=== PATIENT | female | born 1975 | race American Indian/Alaskan Native ===

== ENCOUNTER 2017-05-27 07:50 | Emergency (ER) | payer MEDICAID, MEDICARE ==
[2017-05-27 07:50] VITALS: BMI 30.9
[2017-05-27 07:55] VITALS: TEMP 98.6
--- NOTE | 2017-05-27 08:27 | C.PDOC ---
History Of Present Illness 42 yr old female presents to the ER requesting heroin detox. Patient reports last use was in last 24hrs. Otherwise patient denies SI, HI, or any other physical complaints. REQUESTING HEROIN DETOX. LAST USE 24 HRS. CO [place], [place]. NO OTHER ASSOC SX EXAM PSYCH CALM COOPERATIVE MILD WITHDRAWAL WARM DRY REMAINDER NEG Time Seen by Provider: 05/27/17 08:18 Chief Complaint (Nursing): Substance Abuse History Per: Patient History/Exam Limitations: no limitations Onset/Duration Of Symptoms: Persistent Current Symptoms Are (Timing): Still Present Suicide/Self Injury Attempted (Context): None Involuntary Hold By: None Recent travel outside of the [place]: No Past Medical History Reviewed: Historical Data, Nursing Documentation, Vital Signs Vital Signs: Last Vital Signs Temp 98.6 F 05/27/17 07:54 Pulse 105 H 05/27/17 07:54 Resp 22 05/27/17 07:54 BP 155/108 H 05/27/17 07:54 Pulse Ox 99 05/27/17 08:27 - Medical History PMH: Anemia, Anxiety, Asthma, Back Problems (SPINAL SURGERY IN 2005), Bipolar Disorder, Bronchitis, COPD, Depression, GERD, HTN, Hypercholesterolemia, Post Traumatic Stress Disorder, Seizures, TIA (impaired speech resolved 2015) Surgical History: Back Surgery - [facility] Procedures ALCOHOL DETOXIFICATION (12/13/14) BILAT ENDOS OCC TUBE NEC (12/20/97) C.A.T. SCAN OF HEAD (03/31/07) CLOSED ENDOSCOPIC BIOPSY OF LARGE INTESTINE (05/10/14) DETOXIFICATION SERVICES FOR SUBSTANCE ABUSE TREATMENT (10/19/16) DPT ADMINISTRATION (07/06/14) DRAINAGE OF RIGHT KNEE JOINT, PERCUTANEOUS APPROACH, DIAGN (12/08/15) DX ULTRASOUND-DIGESTIVE (04/10/15) ESOPHAGOGASTRODUODENOSCOPY [EGD] W/CLOSED BIOPSY (04/10/15) GROUP SPLINE ROLLING MACHINE JOB SETTER FOR SUBSTANCE ABUSE TREATMENT, PSYCHOEDUCATION (10/19/16) GROUP PSYCHOTHERAPY (10/19/16) IMMOBILIZ/WOUND ATTN NEC (04/28/14) INCIS VULVA/PERINEUM NEC (04/28/14) INDIV SPLINE ROLLING MACHINE JOB SETTER FOR SUBSTANCE ABUSE TREATMENT, PSYCHOEDUCATION (10/19/16) INDIV PSYCHOTHERAPY FOR SUBSTANCE ABUSE TREATMENT, SUPPORT (10/19/16) INDIV PSYCHOTHERAPY FOR SUBSTANCE ABUSE, PSYCHOEDUCATION (07/07/16) INDIVID PSYCHOTHERAP NEC (08/07/14) INDIVIDUAL PSYCHOTHERAPY, COGNITIVE-BEHAVIORAL (10/19/16) INDIVIDUAL PSYCHOTHERAPY, SUPPORTIVE (11/25/15) INJECT/INFUSE ELECTROLYT (06/11/14) INJECT/INFUSE NEC (11/14/14) INSERT INDWELLING CATH (05/07/14) INTRODUCE OF OTH THERAP SUBST INTO RESP TRACT, VIA OPENING (03/19/17) MEDICATION MANAGEMENT (05/03/17) NEBULIZER THERAPY (12/13/14) OTHER GROUP THERAPY (08/07/14) PSYCHIA INTERV/EVAL NEC (11/14/14) PSYCHIAT DRUG THERAP NEC (05/22/14) VENOUS PUNCTURE NEC (08/02/14) Family History: States: No Known Family Hx - Social History Hx Tobacco Use: Yes Hx Alcohol Use: Yes Hx Substance Use: Yes - Immunization History Hx Tetanus Toxoid Vaccination: No Hx Influenza Vaccination: No Hx Pneumococcal Vaccination: No Review Of Systems Except As Marked, All Systems Reviewed And Found Negative. Constitutional: Negative for: Fever Cardiovascular: Negative for: Chest Pain Respiratory: Negative for: Shortness of Breath Neurological: Negative for: Headache Psych: Negative for: Suicidal ideation Physical Exam - Physical Exam Appears: Non-toxic, No Acute Distress, Other ((+) Mild withdrawal.) Skin: Warm, Dry, No Rash Head: Atraumatic, Normacephalic Oral Mucosa: Moist Chest: Symmetrical, No Tenderness Cardiovascular: Rhythm Regular, No Murmur Respiratory: Normal Breath Sounds, No Rales, No Rhonchi, No Stridor, No Wheezing Extremity: Normal ROM, No Swelling Neurological/Psych: Oriented x3, Normal Speech, Normal Motor, Normal Sensation ED Course And Treatment O2 Sat by Pulse Oximetry: 99 (RA) Pulse Ox Interpretation: Normal - Physician Consult Information Time Consulting Physician Contacted: 08:26 Outcome Of Conversation: D/W CRISIS NO DETOX BED AVAIL Medical Decision Making Medical Decision Making: PLAN: * Clonidine PO * Promethazine PO * Toradol IM Disposition Counseled Patient/Family Regarding: Diagnosis, Need For Followup, Rx Given - Disposition Referrals: [facility] [Outside] [facility] [Outside] [facility] [Provider Group] [facility] [Other] Disposition: HOME/ ROUTINE Disposition Time: 08:26 Condition: IMPROVED Prescriptions: Ondansetron [Zofran Odt] 4 mg PO TID PRN #9 odt PRN Reason: Nausea/Vomiting Instructions: Opioid Withdrawal (ED) Forms: [facility] (Portuguese) - Clinical Impression Clinical Impression: Opiate withdrawal - Scribe Statement The provider has reviewed the documentation as recorded by the Scribe Norma Pruitt Provider Attestation: All medical record entries made by the Scribe were at my direction and personally dictated by me. I have reviewed the chart and agree that the record accurately reflects my personal performance of the history, physical exam, medical decision making, and the department course for this patient. I have also personally directed, reviewed, and agree with the discharge instructions and disposition.
[2017-05-27 08:54] VITALS: BP 148/92; PULSE 90; RESP 20; O2SAT 98
== END 2017-05-27 09:19 | disposition home or self-care (01) ==
LOC: C.ER 07:50
DX: F11.23 Opioid dependence with withdrawal (principal)
CPT/HCPCS: 96372; 99285; J1885; J2550

== ENCOUNTER 2017-06-11 21:50 | Emergency (ER) | payer MEDICAID, OTHER ==
[2017-06-11 21:50] VITALS: BMI 30.9
[2017-06-11 22:34] LABS: BASO # 0.1 K/uL (0.0-0.2); BASO % 1.3 % (0.0-2.0); EOS # 0.1 K/uL (0.0-0.7); EOS % 1.7 % (0.0-4.0); HEMATOCRIT 36.7 % (34.0-47.0); LYMPH % 41.7 % (20.0-40.0); MEAN CELL VOLUME 93.3 fL (81.0-99.0); MEAN CORPUSCULAR HEMOGLOBIN 31.3 pg (27.0-31.0); MEAN CORPUSCULAR HGB CONC 33.6 g/dL (33.0-37.0); MEAN PLATELET VOLUME 9.1 fL (7.2-11.7); MONO # 0.7 K/uL (0.0-0.8); MONO % 9.2 % (0.0-10.0); RED CELL DISTRIBUTION WIDTH 15.2 % (11.5-14.5); WHITE BLOOD COUNT 7.2 K/uL (4.8-10.8)
--- NOTE | 2017-06-11 22:36 | C.PDOC ---
History Of Present Illness Patient is a 42 y/o female who presents to the ED by EMS s/p being [place] in [place] intoxicated and unable to answer questions. Patient has a PMHx of asthma, bronchitis, COPD, seizure disorder, PTSD, bipolar disorder as well as a Hx of heroin and cocaine abuse. No other physical complaints at this time. Time Seen by Provider: 06/11/17 22:07 Chief Complaint (Nursing): Substance Abuse History Per: Patient History/Exam Limitations: intoxication, other (unable to answer questions) Current Symptoms Are (Timing): Still Present Recent travel outside of the [place]: No Additional History Per: EMS Past Medical History Reviewed: Historical Data, Nursing Documentation, Vital Signs Vital Signs: Last Vital Signs Temp Pulse 94 H 06/11/17 21:58 Resp 16 06/11/17 21:58 BP 113/87 06/11/17 21:58 Pulse Ox 98 06/12/17 00:10 - Medical History PMH: Anemia, Anxiety, Asthma, Back Problems (SPINAL SURGERY IN 2005), Bipolar Disorder, Bronchitis, COPD, Depression, GERD, HTN, Hypercholesterolemia, Post Traumatic Stress Disorder, Seizures, TIA Denies: Alzheimer's Disease, Arthritis, Cardia Arrhythmia, CHF, Crohn's Disease, Dementia, Diabetes, Diverticulitis, Emphysema, Fibromyalgia, Fractures , Gastrointestinal Ulcer, Gall Bladder Disease, Hepatitis, HIV, Hyperthyroidism , Hypothyroidism, Kidney Stones, Migraine, Mitral Valve Prolapse, Osteoporosis, Pancreatitis, Paranoia, Parkinson's Disease, Peripheral Edema, Personality Disorder, Pneumonia, Pulmonary Embolism, Chronic Kidney Disease, Schizophrenia, Sickle Cell Disease, Sexually Transmitted Disease, Sleep Apnea Surgical History: Back Surgery Denies: Appendectomy, Cholecystectomy, Coronary Stent, [facility] ALCOHOL DETOXIFICATION (12/13/14) BILAT ENDOS OCC TUBE NEC (12/20/97) C.A.T. SCAN OF HEAD (03/31/07) CLOSED ENDOSCOPIC BIOPSY OF LARGE INTESTINE (05/10/14) DETOXIFICATION SERVICES FOR SUBSTANCE ABUSE TREATMENT (10/19/16) DPT ADMINISTRATION (07/06/14) DRAINAGE OF RIGHT KNEE JOINT, PERCUTANEOUS APPROACH, DIAGN (12/08/15) DX ULTRASOUND-DIGESTIVE (04/10/15) ESOPHAGOGASTRODUODENOSCOPY [EGD] W/CLOSED BIOPSY (04/10/15) GROUP PRINT LINE SUPERVISOR FOR SUBSTANCE ABUSE TREATMENT, PSYCHOEDUCATION (10/19/16) GROUP PSYCHOTHERAPY (10/19/16) IMMOBILIZ/WOUND ATTN NEC (04/28/14) INCIS VULVA/PERINEUM NEC (04/28/14) INDIV PRINT LINE SUPERVISOR FOR SUBSTANCE ABUSE TREATMENT, PSYCHOEDUCATION (10/19/16) INDIV PSYCHOTHERAPY FOR SUBSTANCE ABUSE TREATMENT, SUPPORT (10/19/16) INDIV PSYCHOTHERAPY FOR SUBSTANCE ABUSE, PSYCHOEDUCATION (07/07/16) INDIVID PSYCHOTHERAP NEC (08/07/14) INDIVIDUAL PSYCHOTHERAPY, COGNITIVE-BEHAVIORAL (10/19/16) INDIVIDUAL PSYCHOTHERAPY, SUPPORTIVE (11/25/15) INJECT/INFUSE ELECTROLYT (06/11/14) INJECT/INFUSE NEC (11/14/14) INSERT INDWELLING CATH (05/07/14) INTRODUCE OF OTH THERAP SUBST INTO RESP TRACT, VIA OPENING (03/19/17) MEDICATION MANAGEMENT (05/03/17) NEBULIZER THERAPY (12/13/14) OTHER GROUP THERAPY (08/07/14) PSYCHIA INTERV/EVAL NEC (11/14/14) PSYCHIAT DRUG THERAP NEC (05/22/14) VENOUS PUNCTURE NEC (08/02/14) Family History: States: Unknown Family Hx - Social History Hx Tobacco Use: Yes Hx Alcohol Use: Yes Hx Substance Use: Yes (H/O HEROINE,COCAINE ABUSE.DENIES USE RECENTLY) - Immunization History Hx Tetanus Toxoid Vaccination: No Hx Influenza Vaccination: No Hx Pneumococcal Vaccination: No Review Of Systems Review Of Systems: ROS cannot be obtained secondary to pt's inabilty to answer questions. Physical Exam - Physical Exam Appears: Other (lethargic, not verbally responsive. Eyes open, but not following commands) Skin: Normal Color, Warm, Diaphoretic Head: Atraumatic, Normacephalic Eye(s): bilateral: Other (constricted; pinpoint pupils) Oral Mucosa: Moist Chest: Symmetrical Cardiovascular: Rhythm Regular, No Murmur Respiratory: Normal Breath Sounds, No Rales, No Rhonchi, No Wheezing Neurological/Psych: No Response To Commands, Eyes Open With Command Additional Physical Exam Comments: No apparent sign of injury or trauma. ED Course And Treatment - Laboratory Results Result Diagrams: 06/11/17 22:29 06/11/17 22:29 Lab Interpretation: No Acute Changes O2 Sat by Pulse Oximetry: 98 (room air) Pulse Ox Interpretation: Normal Medical Decision Making Medical Decision Making: Plan: blood work, drug screen, and UA ordered. Disposition - Disposition Disposition Time: 00:13 Condition: STABLE Forms: [facility] (Moroccan) - Clinical Impression Clinical Impression: Drug abuse, Substance abuse, Altered mental status - Scribe Statement The provider has reviewed the documentation as recorded by the Scribe Elizabeth Butcher All medical record entries made by the Scribe were at my direction and personally dictated by me. I have reviewed the chart and agree that the record accurately reflects my personal performance of the history, physical exam, medical decision making, and the department course for this patient. I have also personally directed, reviewed, and agree with the discharge instructions and disposition. Physician Patient Turnover Patient Signed Over To: Osiel Orr Handoff Comments: pending sobriety
[2017-06-11 22:42] LABS: CHLORIDE 102 mmol/L (98-107); POTASSIUM 3.8 mmol/L (3.6-5.2); SODIUM 138 mmol/L (132-148)
[2017-06-11 22:44] LABS: ALB/GLOB RATIO 1.4 (1.0-2.1); AST/SGOT 339 U/L (14-36); BILIRUBIN,TOTAL 0.3 mg/dL (0.2-1.3); CARBON DIOXIDE 25 mmol/L (22-30); GFR AFRICAN-AMERICAN > 60
[2017-06-11 22:45] LABS: ALCOHOL SERUM < 10 mg/dl (0-10); ALKALINE PHOSPHATASE 86 U/L (38-126); ALT/SGPT 482 U/L (9-52); BLOOD UREA NITROGEN 25 mg/dL (7-17); CALCIUM 8.8 mg/dl (8.6-10.4); GLUCOSE,RANDOM 89 mg/dL (65-105)
[2017-06-11] MEDS ORDERED: Sodium Chloride 0.9% 1,000 ML IV ONE (22:49)
[2017-06-11] MEDS ORDERED: Sodium Chloride 0.9% 1,000 ML ONE (23:15)
[2017-06-12 03:55] LABS: RBC URINE 1 /hpf (0-3); URINE BACTERIA RARE (<OCC); URINE BILIRUBIN NEGATIVE (NEGATIVE); URINE BLOOD NEGATIVE (NEGATIVE); URINE COLOR Yellow (YELLOW); URINE GLUCOSE (UA) NORMAL (Normal); URINE KETONE TRACE mg/dL (NEGATIVE); URINE LEUKOCYTE ESTERASE NEG Leu/uL (Negative); URINE PROTEIN NEGATIVE (NEGATIVE); URINE UROBILINOGEN NORMAL mg/dL (0.2-1.0); WBC URINE < 1 /hpf (0-5)
[2017-06-12 05:50] VITALS: BP 132/80; PULSE 87; RESP 20; O2SAT 100
== END 2017-06-12 06:15 | disposition home or self-care (01) ==
LOC: C.ER 21:50
DX: F19.10 Other psychoactive substance abuse, uncomplicated (principal); R41.82 Altered mental status, unspecified
CPT/HCPCS: 80053; 80320; 80324; 80345; 80346; 80349; 80353; 80358; 80361; 81001; 83992; 84703; 85025; 96360; 99285; J7040

== ENCOUNTER 2017-06-12 11:31 | Inpatient (IN) | payer OTHER, MEDICAID ==
--- NOTE | 2017-06-12 11:34 | C.PDOC ---
History Of Present Illness 42 y/o female brought in by EMS after she was found unresponsive on the street with pinpoint pupils, breathing on her own. History unobtainable from patient at this time. Time Seen by Provider: 06/12/17 11:33 History Per: EMS History/Exam Limitations: clinical condition Current Symptoms Are (Timing): Still Present Recent travel outside of the [place]: No Past Medical History Reviewed: Historical Data, Nursing Documentation, Vital Signs Vital Signs: Last Vital Signs Temp 94.7 F L 06/12/17 12:01 Pulse 50 L 06/12/17 15:25 Resp 16 06/12/17 15:25 BP 188/98 H 06/12/17 15:25 Pulse Ox 100 06/12/17 15:25 - Medical History PMH: Anemia, Anxiety, Asthma, Back Problems (SPINAL SURGERY IN 2005), Bipolar Disorder, Bronchitis, COPD, Depression, GERD, HTN, Hypercholesterolemia, Post Traumatic Stress Disorder, Seizures, TIA Surgical History: Back Surgery - [facility] Procedures ALCOHOL DETOXIFICATION (12/13/14) BILAT ENDOS OCC TUBE NEC (12/20/97) C.A.T. SCAN OF HEAD (03/31/07) CLOSED ENDOSCOPIC BIOPSY OF LARGE INTESTINE (05/10/14) DETOXIFICATION SERVICES FOR SUBSTANCE ABUSE TREATMENT (10/19/16) DPT ADMINISTRATION (07/06/14) DRAINAGE OF RIGHT KNEE JOINT, PERCUTANEOUS APPROACH, DIAGN (12/08/15) DX ULTRASOUND-DIGESTIVE (04/10/15) ESOPHAGOGASTRODUODENOSCOPY [EGD] W/CLOSED BIOPSY (04/10/15) GROUP SUPERVISOR AREA FOR SUBSTANCE ABUSE TREATMENT, PSYCHOEDUCATION (10/19/16) GROUP PSYCHOTHERAPY (10/19/16) IMMOBILIZ/WOUND ATTN NEC (04/28/14) INCIS VULVA/PERINEUM NEC (04/28/14) INDIV SUPERVISOR AREA FOR SUBSTANCE ABUSE TREATMENT, PSYCHOEDUCATION (10/19/16) INDIV PSYCHOTHERAPY FOR SUBSTANCE ABUSE TREATMENT, SUPPORT (10/19/16) INDIV PSYCHOTHERAPY FOR SUBSTANCE ABUSE, PSYCHOEDUCATION (07/07/16) INDIVID PSYCHOTHERAP NEC (08/07/14) INDIVIDUAL PSYCHOTHERAPY, COGNITIVE-BEHAVIORAL (10/19/16) INDIVIDUAL PSYCHOTHERAPY, SUPPORTIVE (11/25/15) INJECT/INFUSE ELECTROLYT (06/11/14) INJECT/INFUSE NEC (11/14/14) INSERT INDWELLING CATH (05/07/14) INTRODUCE OF OTH THERAP SUBST INTO RESP TRACT, VIA OPENING (03/19/17) MEDICATION MANAGEMENT (05/03/17) NEBULIZER THERAPY (12/13/14) OTHER GROUP THERAPY (08/07/14) PSYCHIA INTERV/EVAL NEC (11/14/14) PSYCHIAT DRUG THERAP NEC (05/22/14) VENOUS PUNCTURE NEC (08/02/14) Family History: States: Unknown Family Hx - Social History Hx Tobacco Use: Yes Hx Alcohol Use: Yes Hx Substance Use: Yes (H/O HEROINE,COCAINE ABUSE.DENIES USE RECENTLY) - Immunization History Hx Tetanus Toxoid Vaccination: No Hx Influenza Vaccination: No Hx Pneumococcal Vaccination: No Review Of Systems Review Of Systems: ROS cannot be obtained secondary to pt's inabilty to answer questions. Physical Exam - Physical Exam Appears: Other (lethargic, opens eyes on command) Skin: Warm, Dry Head: Atraumatic, Normacephalic Eye(s): bilateral: Other (pinpoint pupils) Oral Mucosa: Moist Neck: Supple Chest: Symmetrical Cardiovascular: Rhythm Regular Respiratory: No Rales, No Rhonchi, No Wheezing Gastrointestinal/Abdominal: Soft, No Tenderness Extremity: Normal ROM Extremity: Bilateral: Atraumatic, Normal Color And Temperature Pulses: Left Dorsalis Pedis: Normal, Right Dorsalis Pedis: Normal Neurological/Psych: Slow To Respond With Command ED Course And Treatment - Laboratory Results Result Diagrams: 06/12/17 13:43 06/12/17 13:43 ECG: Interpreted By Me, Viewed By Me ECG Rhythm: Sinus Rhythm, Nonspecific Changes O2 Sat by Pulse Oximetry: 100 Pulse Ox Interpretation: Normal - Radiology CXR: Interpreted by Me, Viewed By Me CXR Interpretation: No: Infiltrates, Fracture, Pnemothorax Progress Note: spoke with dr canales-icu- will come and see the pt. even afte 2 mg narcan, pt is still unresponsive Critical Care Time - Critical Care Note Total Time (in mins): 30 Documented critical care: time excludes all time spent performing seperately billable procedures. Disposition Discussed With : Eric Cobb Comment: accepted the pt onhis service and took over hte care at 3:39 PM Doctor Will See Patient In The: Hospital Counseled Patient/Family Regarding: Studies Performed, Diagnosis - Disposition Disposition: HOSPITALIZED Disposition Time: 11:34 Condition: GUARDED - POA Present On Arrival: None - Clinical Impression Clinical Impression: Change in mental status, Heroin abuse - Scribe Statement The provider has reviewed the documentation as recorded by the Scribe SM All medical record entries made by the Scribe were at my direction and personally dictated by me. I have reviewed the chart and agree that the record accurately reflects my personal performance of the history, physical exam, medical decision making, and the department course for this patient. I have also personally directed, reviewed, and agree with the discharge instructions and disposition. Decision To Admit - Pt Status Changed To: Hospital Disposition Of: Inpatient - Admit Certification Admit to Inpatient:: After my assessment, the patient will require hospitalization for at least two midnights. This is because of the severity of symptoms shown, intensity of services needed, and/or the medical risk in this patient being treated as an outpatient. - InPatient: Physician Admission Certification: I certify that this patient requires 2 or more midnights of care for the following reason:: After my assessment, the patient will require hospitalization for at least two midnights. This is because of the severity of symptoms shown, intensity of services needed, and/or the medical risk in this patient being treated as an outpatient. - . Bed Request Type: ICU Admitting Physician: Eric Cobb Patient Diagnosis: Change in mental status, Heroin abuse
[2017-06-12 11:35] VITALS: BMI 24.9
[2017-06-12] MEDS ORDERED: Sodium Chloride 0.9% 1,000 ML IV ONE (11:35)
[2017-06-12 12:12] LABS: URINE BILIRUBIN NEGATIVE (NEGATIVE); URINE BLOOD NEGATIVE (NEGATIVE); URINE COLOR Yellow (YELLOW); URINE GLUCOSE (UA) NORMAL (Normal); URINE KETONE NEGATIVE (NEGATIVE); URINE LEUKOCYTE ESTERASE NEG Leu/uL (Negative); URINE PROTEIN NEGATIVE (NEGATIVE); URINE UROBILINOGEN NORMAL mg/dL (0.2-1.0); WBC URINE 1 /hpf (0-5)
[2017-06-12] MEDS ORDERED: Naloxone 0.4 mg/ml Inj (Adult) IVP ONE ×2 (12:16)
[2017-06-12] MEDS ORDERED: Naloxone 0.4 mg/ml Inj (Adult) ONE ×3 (12:17→13:16)
--- NOTE | 2017-06-12 13:09 | RAD ---
HISTORY: Detox/Psy COMPARISON: None available. TECHNIQUE: Chest, one view. FINDINGS: Examination limited by habitus. LUNGS: No focal consolidation. Please note that chest x-ray has limited sensitivity for the detection of pulmonary masses. PLEURA: No significant pleural effusion identified. No definite pneumothorax . CARDIOVASCULAR: Heart size appears top normal. OSSEOUS STRUCTURES: No acute osseous abnormality identified. VISUALIZED UPPER ABDOMEN: Unremarkable. OTHER FINDINGS: None. IMPRESSION: No focal consolidation, significant pleural effusion, or definite pneumothorax identified.
[2017-06-12] MEDS ORDERED: Naloxone 0.4 mg/ml Inj (Adult) IVP STA (13:14)
--- NOTE | 2017-06-12 13:16 | CT ---
PROCEDURE: CT HEAD WITHOUT CONTRAST. HISTORY: lethargy COMPARISON: None available. TECHNIQUE: Axial computed tomography images were obtained through the head/brain without intravenous contrast. Radiation dose: Total exam DLP = 903 mGy-cm. This CT exam was performed using one or more of the following dose reduction techniques: Automated exposure control, adjustment of the mA and/or kV according to patient size, and/or use of iterative reconstruction technique. FINDINGS: HEMORRHAGE: No intracranial hemorrhage. BRAIN: No mass effect or edema. No atrophy or chronic microvascular ischemic changes. VENTRICLES: Unremarkable. No hydrocephalus. CALVARIUM: Unremarkable. PARANASAL SINUSES: Unremarkable as visualized. No significant inflammatory changes. MASTOID AIR CELLS: Unremarkable as visualized. No inflammatory changes. OTHER FINDINGS: Focal soft tissue swelling overlying the inferior right frontal cranium/ periorbital region. IMPRESSION: Focal soft tissue swelling overlying the inferior right frontal cranium/ periorbital region. No acute intracranial abnormality. If symptoms persists, consider further evaluation with MRI.
[2017-06-12 13:47] LABS: BASO # 0.1 K/uL (0.0-0.2); BASO % 0.8 % (0.0-2.0); EOS # 0.1 K/uL (0.0-0.7); HEMATOCRIT 38.1 % (34.0-47.0); LYMPH # 2.1 K/uL (1.0-4.3); LYMPH % 28.8 % (20.0-40.0); MEAN CELL VOLUME 92.8 fL (81.0-99.0); MEAN CORPUSCULAR HEMOGLOBIN 31.8 pg (27.0-31.0); MEAN CORPUSCULAR HGB CONC 34.2 g/dL (33.0-37.0); MONO # 0.5 K/uL (0.0-0.8); MONO % 7.3 % (0.0-10.0); RED CELL DISTRIBUTION WIDTH 15.2 % (11.5-14.5); WHITE BLOOD COUNT 7.4 K/uL (4.8-10.8)
[2017-06-12 13:56] LABS: CHLORIDE 106 mmol/L (98-107)
[2017-06-12 13:57] LABS: POTASSIUM 3.8 mmol/L (3.6-5.2); SODIUM 140 mmol/L (132-148)
[2017-06-12 13:59] LABS: ALB/GLOB RATIO 1.2 (1.0-2.1); ALKALINE PHOSPHATASE 75 U/L (38-126); ALT/SGPT 546 U/L (9-52); AST/SGOT 391 U/L (14-36); BILIRUBIN,TOTAL 0.4 mg/dL (0.2-1.3); BLOOD UREA NITROGEN 15 mg/dL (7-17); CARBON DIOXIDE 25 mmol/L (22-30); GFR AFRICAN-AMERICAN > 60; GLUCOSE,RANDOM 79 mg/dL (65-105); TOTAL PROTEIN 7.4 g/dL (6.3-8.3)
[2017-06-12 14:00] LABS: ALCOHOL SERUM < 10 mg/dl (0-10); CALCIUM 9.2 mg/dl (8.6-10.4)
--- NOTE | 2017-06-12 15:55 | CP.PCM.CON ---
<Soumya Do - Last Filed: 06/12/17 15:52> History of Present Illness - History of Present Illness History of Present Illness: Patient is a 42 year old female with a past medical history of asthma, bronchitis, anxiety, bipolar disorder, depression, GERD, HTN, hypercholesterolemia, PTSD, seizures, hepatitis C, who was brought into the ED by EMS. Patient was found stumbling in the street. Patient was also in the ED yesterday after being found unresponsive on a ramp. Patient is currently unresponsive and has pinpoint pupils. She does not respond to questions or review of systems and only wakes up to painful stimuli. Past medical history is obtained from previous notes on EMR due to patient's condition. PMHx: asthma, bronchitis, anxiety, bipolar disorder, depression, GERD, HTN, hypercholesterolemia, PTSD, seizures, cervical cancer, untreated hepatitis C SurgHx: tubes tied and lumbar laminectomy. Questionable hx of a surgery to her cervix per patient. FamHx: Multiple family members have cancer and diabetes SocHx: Hx of heroin and cocaine abuse as per EMR, alcohol abuse Allergies: PAT inhibitor Medications: See EMR Review of Systems - Review of Systems Systems not reviewed;Unavailable: Altered Mental Status, Intoxicated Past Patient History - Infectious Disease Hx of Infectious Diseases: None - Tetanus Immunizations Tetanus Immunization: Up to Date - Past Medical History & Family History Past Medical History?: Yes - Past Social History Smoking Status: Current Some Days Smoker - CARDIAC Hx Hypercholesterolemia: Yes Hx Hypertension: Yes - PULMONARY Hx Asthma: Yes Hx Bronchitis: Yes Hx Chronic Obstructive Pulmonary Disease (COPD): Yes - NEUROLOGICAL Hx Seizures: Yes Hx Transient Ischemic Attacks (TIA): Yes - HEENT Hx HEENT Problems: No - RENAL Hx Chronic Kidney Disease: No Hx Kidney Stones: No - ENDOCRINE/METABOLIC Hx Hyperthyroidism: No Hx Hypothyroidism: No - HEMATOLOGICAL/ONCOLOGICAL Hx Anemia: Yes - INTEGUMENTARY Hx Dermatological Problems: No - MUSCULOSKELETAL/RHEUMATOLOGICAL Hx Arthritis: No Hx Fractures: No Hx Osteoporosis: No - GASTROINTESTINAL Hx Crohn's Disease: No Hx Diverticulitis: No Hx Gall Bladder Disease: No Hx Pancreatitis: No - GENITOURINARY/GYNECOLOGICAL Hx Sexually Transmitted Disorders: No - PSYCHIATRIC Hx Anxiety: Yes Hx Bipolar Disorder: Yes Hx Depression: Yes Hx Post Traumatic Stress Disorder: Yes Hx Substance Use: Yes (H/O HEROINE,COCAINE ABUSE.DENIES USE RECENTLY) - SURGICAL HISTORY Hx Appendectomy: No Hx Cholecystectomy: No Hx Coronary Stent: No - ANESTHESIA Hx Anesthesia: Yes Hx Anesthesia Reactions: No Hx Malignant Hyperthermia: No Meds Allergies/Adverse Reactions: Allergies Allergy/AdvReac Type Severity Reaction Status Date / Time PAT Inhibitors Allergy RASH Verified 06/10/17 09:10 Physical Exam - Head Exam Head Exam: NORMAL INSPECTION Additional comments: Periorbital soft tissue swelling - Eye Exam Eye Exam: Periorbital swelling. absent: Normal appearance Pupil Exam: Miosis (Pinpoint pupils) - ENT Exam ENT Exam: Mucous Membranes Dry - Respiratory Exam Respiratory Exam: Clear to Auscultation Bilateral, NORMAL BREATHING PATTERN. absent: Rales, Rhonchi, Wheezes, Respiratory Distress - Cardiovascular Exam Cardiovascular Exam: Bradycardia, REGULAR RHYTHM, +S1, +S2 - GI/Abdominal Exam GI & Abdominal Exam: Normal Bowel Sounds, Soft. absent: Firm, Guarding, Mass, Tenderness - Extremities Exam Extremities exam: Positive for: normal inspection. Negative for: pedal edema Additional comments: Patient responds to deep palpation on the right LE. - Neurological Exam Neurological exam: Altered Additional comments: Patient is lethargic, disoriented, unresponsive except to deep painful stimuli. - Psychiatric Exam Additional comments: Lethargic; intoxicated - Skin Skin Exam: Dry, Intact, Normal Color Additional comments: No track brooks noted on UE/LE. Results - Vital Signs Recent Vital Signs: Last Vital Signs Temp 94.7 F L 06/12/17 12:01 Pulse 50 L 06/12/17 15:25 Resp 16 06/12/17 15:25 BP 188/98 H 06/12/17 15:25 Pulse Ox 100 06/12/17 15:44 - Labs Result Diagrams: 06/12/17 13:43 06/12/17 13:43 Labs: Laboratory Results - last 24 hr 06/12/17 06/12/17 06/12/17 11:36 11:50 11:50 WBC RBC Hgb Hct MCV MCH MCHC RDW Plt Count MPV Neut % (Auto) Lymph % (Auto) [place] % (Auto) Eos % (Auto) Baso % (Auto) Neut # Lymph # [place] # Eos # Baso # Sodium Potassium Chloride Carbon Dioxide Anion Gap BUN Creatinine Est GFR ( Amer) Est GFR (Non-Af Amer) POC Glucose (mg/dL) 80 Random Glucose Calcium Total Bilirubin AST ALT Alkaline Phosphatase Total Protein Albumin Globulin Albumin/Globulin Ratio Urine Color Yellow Urine Clarity Clear Urine pH 5.0 Ur Specific [place] 1.017 Urine Protein Negative Urine Glucose (UA) Normal Urine Ketones Negative Urine Blood Negative Urine Nitrate Negative Urine Bilirubin Negative Urine Urobilinogen Normal Ur Leukocyte Esterase Neg Urine WBC (Auto) 1 Ur Squamous Epith Cells < 1 Urine HCG, Qual Negative Urine Opiates Screen Positive H Urine Methadone Screen Positive Ur Barbiturates Screen Negative Ur Phencyclidine Scrn Negative Ur Amphetamines Screen Negative U Benzodiazepines Scrn Negative U Oth Cocaine Metabols Negative U Cannabinoids Screen Positive Alcohol, Quantitative 06/12/17 06/12/17 13:43 13:43 WBC 7.4 RBC 4.11 Hgb 13.0 Hct 38.1 MCV 92.8 MCH 31.8 H MCHC 34.2 RDW 15.2 H Plt Count 271 MPV 9.0 Neut % (Auto) 61.1 Lymph % (Auto) 28.8 [place] % (Auto) 7.3 Eos % (Auto) 2.0 Baso % (Auto) 0.8 Neut # 4.5 Lymph # 2.1 [place] # 0.5 Eos # 0.1 Baso # 0.1 Sodium 140 Potassium 3.8 Chloride 106 Carbon Dioxide 25 Anion Gap 13 BUN 15 Creatinine 0.6 L Est GFR ( Amer) > 60 Est GFR (Non-Af Amer) > 60 POC Glucose (mg/dL) Random Glucose 79 Calcium 9.2 Total Bilirubin 0.4 AST 391 H ALT 546 H Alkaline Phosphatase 75 Total Protein 7.4 Albumin 4.0 Globulin 3.4 Albumin/Globulin Ratio 1.2 Urine Color Urine Clarity Urine pH Ur Specific [place] Urine Protein Urine Glucose (UA) Urine Ketones Urine Blood Urine Nitrate Urine Bilirubin Urine Urobilinogen Ur Leukocyte Esterase Urine WBC (Auto) Ur Squamous Epith Cells Urine HCG, Qual Urine Opiates Screen Urine Methadone Screen Ur Barbiturates Screen Ur Phencyclidine Scrn Ur Amphetamines Screen U Benzodiazepines Scrn U Oth Cocaine Metabols U Cannabinoids Screen Alcohol, Quantitative < 10 Assessment & Plan - Assessment and Plan (Free Text) Assessment: Patient is a 42 year old female with past medical history of who is admitted to the ICU for drug overdose and altered mental status. Plan: Close observation and hydration. Neuro: not alert, lethargic, intoxicated Pulm: hx of asthma, bronchitis, COPD - Patient is breathing on her own. Continue to monitor. - ABG: f/u results Cardio: hx of HTN - Monitor vitals Endo: no acute issues GI: Pepcid 20mg PO BID after passing bedside swallow evaluation tomorrow Heme: no acute issues Renal: no acute issues ID: no acute issues Psych: hx of anxiety and depression - Psychiatry consulted, help appreciated - Monitor closely due to polysubstance abuse - UDS: positive for opioids, methadone, cannabinoids - 3 doses of IV Narcan given in the ED, no response. - IV NS @125 mls/hr GI Prophylaxis: Pepcid 20mg PO DVT Prophylaxis: Heparin 5,000 SC Q8 <Aubrey Saldaña M - Last Filed: 06/12/17 19:17> Meds - Medications Medications: Current Medications Famotidine (Pepcid) 20 mg PO BID ERNST Heparin Sodium (Porcine) (Heparin) 5,000 units SC Q8 ERNST Sodium Chloride (Sodium Chloride 0.9%) 1,000 mls @ 125 mls/hr IV .Q8H ERNST Results - Vital Signs Recent Vital Signs: Last Vital Signs Temp 94.7 F L 06/12/17 12:01 Pulse 50 L 06/12/17 15:25 Resp 17 06/12/17 15:51 BP 188/98 H 06/12/17 15:25 Pulse Ox 100 06/12/17 15:44 - Labs Result Diagrams: 06/12/17 13:43 06/12/17 13:43 Labs: Laboratory Results - last 24 hr 06/12/17 06/12/17 06/12/17 11:36 11:50 11:50 WBC RBC Hgb Hct MCV MCH MCHC RDW Plt Count MPV Neut % (Auto) Lymph % (Auto) [place] % (Auto) Eos % (Auto) Baso % (Auto) Neut # Lymph # [place] # Eos # Baso # Puncture Site pCO2 pO2 HCO3 ABG pH ABG Total CO2 ABG O2 Saturation ABG Base Excess ABG Hemoglobin ABG Carboxyhemoglobin POC ABG HHb (Measured) ABG Methemoglobin Donald Test A-a O2 Difference Respiratory Index Hgb O2 Saturation FiO2 Sodium Potassium Chloride Carbon Dioxide Anion Gap BUN Creatinine Est GFR ( Amer) Est GFR (Non-Af Amer) POC Glucose (mg/dL) 80 Random Glucose Calcium Total Bilirubin AST ALT Alkaline Phosphatase Ammonia Total Protein Albumin Globulin Albumin/Globulin Ratio Urine Color Yellow Urine Clarity Clear Urine pH 5.0 Ur Specific [place] 1.017 Urine Protein Negative Urine Glucose (UA) Normal Urine Ketones Negative Urine Blood Negative Urine Nitrate Negative Urine Bilirubin Negative Urine Urobilinogen Normal Ur Leukocyte Esterase Neg Urine WBC (Auto) 1 Ur Squamous Epith Cells < 1 Urine HCG, Qual Negative Urine Opiates Screen Positive H Urine Methadone Screen Positive Ur Barbiturates Screen Negative Ur Phencyclidine Scrn Negative Ur Amphetamines Screen Negative U Benzodiazepines Scrn Negative U Oth Cocaine Metabols Negative U Cannabinoids Screen Positive Alcohol, Quantitative 06/12/17 06/12/17 06/12/17 13:43 13:43 17:28 WBC 7.4 RBC 4.11 Hgb 13.0 Hct 38.1 MCV 92.8 MCH 31.8 H MCHC 34.2 RDW 15.2 H Plt Count 271 MPV 9.0 Neut % (Auto) 61.1 Lymph % (Auto) 28.8 [place] % (Auto) 7.3 Eos % (Auto) 2.0 Baso % (Auto) 0.8 Neut # 4.5 Lymph # 2.1 [place] # 0.5 Eos # 0.1 Baso # 0.1 Puncture Site Rra pCO2 32 L pO2 153 H HCO3 26.1 ABG pH 7.49 H ABG Total CO2 25.4 ABG O2 Saturation 99.9 H ABG Base Excess 1.6 ABG Hemoglobin 13.1 ABG Carboxyhemoglobin 2.7 H POC ABG HHb (Measured) 0.1 ABG Methemoglobin 1.3 Donald Test Pos A-a O2 Difference -43.0 Respiratory Index -0.3 Hgb O2 Saturation 95.9 FiO2 21.0 Sodium 140 Potassium 3.8 Chloride 106 Carbon Dioxide 25 Anion Gap 13 BUN 15 Creatinine 0.6 L Est GFR ( Amer) > 60 Est GFR (Non-Af Amer) > 60 POC Glucose (mg/dL) Random Glucose 79 Calcium 9.2 Total Bilirubin 0.4 AST 391 H ALT 546 H Alkaline Phosphatase 75 Ammonia Total Protein 7.4 Albumin 4.0 Globulin 3.4 Albumin/Globulin Ratio 1.2 Urine Color Urine Clarity Urine pH Ur Specific [place] Urine Protein Urine Glucose (UA) Urine Ketones Urine Blood Urine Nitrate Urine Bilirubin Urine Urobilinogen Ur Leukocyte Esterase Urine WBC (Auto) Ur Squamous Epith Cells Urine HCG, Qual Urine Opiates Screen Urine Methadone Screen Ur Barbiturates Screen Ur Phencyclidine Scrn Ur Amphetamines Screen U Benzodiazepines Scrn U Oth Cocaine Metabols U Cannabinoids Screen Alcohol, Quantitative < 10 06/12/17 18:24 WBC RBC Hgb Hct MCV MCH MCHC RDW Plt Count MPV Neut % (Auto) Lymph % (Auto) [place] % (Auto) Eos % (Auto) Baso % (Auto) Neut # Lymph # [place] # Eos # Baso # Puncture Site pCO2 pO2 HCO3 ABG pH ABG Total CO2 ABG O2 Saturation ABG Base Excess ABG Hemoglobin ABG Carboxyhemoglobin POC ABG HHb (Measured) ABG Methemoglobin Donald Test A-a O2 Difference Respiratory Index Hgb O2 Saturation FiO2 Sodium Potassium Chloride Carbon Dioxide Anion Gap BUN Creatinine Est GFR ( Amer) Est GFR (Non-Af Amer) POC Glucose (mg/dL) Random Glucose Calcium Total Bilirubin AST ALT Alkaline Phosphatase Ammonia 20 Total Protein Albumin Globulin Albumin/Globulin Ratio Urine Color Urine Clarity Urine pH Ur Specific [place] Urine Protein Urine Glucose (UA) Urine Ketones Urine Blood Urine Nitrate Urine Bilirubin Urine Urobilinogen Ur Leukocyte Esterase Urine WBC (Auto) Ur Squamous Epith Cells Urine HCG, Qual Urine Opiates Screen Urine Methadone Screen Ur Barbiturates Screen Ur Phencyclidine Scrn Ur Amphetamines Screen U Benzodiazepines Scrn U Oth Cocaine Metabols U Cannabinoids Screen Alcohol, Quantitative Attending/Attestation - Attestation I have personally seen and examined this patient.: Yes I have fully participated in the care of the patient.: Yes I have reviewed all pertinent clinical information: Yes Notes (Text): 06/12/17 19:16 Today: June The Patient was seen and examined at the bedside, Medical records reviewed, and management issues were discussed and formulated with the house staff. I have reviewed all the relevant clinical, laboratory, hemodynamic, radiographic data and medications Events reviewed Pain issues, skin care, head of the bed elevation, glycemic control were addressed. I concur with resident's assessment and plan of care as transcribed in Dr. Do note.
[2017-06-12 17:32] LABS: ABG ALLEN TEST POS; ARTERIAL BLOOD HGB O2 SAT 95.9 % (95.0-98.0); CARBOXYHEMOGLOBIN 2.7 % (0.5-1.5); DRAW SITE RRA; HHB 0.1 % (0.0-5.0); METHEMOGLOBIN 1.3 % (0.0-3.0)
[2017-06-12] MEDS: Sodium Chloride 0.9% 1,000 ML IV SCH (17:40)
--- NOTE | 2017-06-12 23:16 | US ---
EXAM: US Abdomen Limited, Right Upper Quadrant CLINICAL HISTORY: 42 years old, female; Condition or disease; Other: Hepatitis; Additional info: [facility] TECHNIQUE: Real-time ultrasound of the right upper quadrant with image documentation. COMPARISON: No relevant prior studies available. FINDINGS: Liver: Enlarged, 19.3 cm. Fatty infiltration. No mass. No intrahepatic ductal dilatation. Gallbladder: No gallstones. No wall thickening. No pericholecystic fluid. No sonographic Bravo's sign. Common bile duct: No dilatation. No stones. Pancreas: Unremarkable as visualized. Right kidney: Normal echogenicity. No hydronephrosis. IMPRESSION: 1.No acute findings. 2.Non-acute findings are described above.
--- NOTE | 2017-06-12 23:51 | CP.PCM.HP ---
History of Present Illness - History of Present Illness History of Present Illness: CC: heroine overdose HPI: Patient is a 42 year old AA female with a past medical history of asthma, bronchitis, anxiety, bipolar disorder, depression, GERD, HTN, hypercholesterolemia, PTSD, seizures, hepatitis C, who was brought into the ED by EMS, she is drowsy, sleeping, hypotensive, she is admitted in ICU, there is no history of witnessed seizure. Patient was found stumbling in the street. Patient was also in the ED yesterday after being found unresponsive on a ramp. Patient is currently unresponsive and has pinpoint pupils. She does not respond to questions or review of systems and only wakes up to painful stimuli. Past medical history is obtained from previous notes on EMR due to patient's condition. PMHx: asthma, bronchitis, anxiety, bipolar disorder, depression, GERD, HTN, hypercholesterolemia, PTSD, seizures, cervical cancer, untreated hepatitis C SurgHx: tubes tied and lumbar laminectomy. Questionable hx of a surgery to her cervix per patient. FamHx: Multiple family members have cancer and diabetes SocHx: Hx of heroin and cocaine abuse as per EMR, alcohol abuse Allergies: PAT inhibitor Medications: See EMR Review of Systems - Review of Systems Systems not reviewed;Unavailable: Altered Mental Status Review of Systems: arousable with lot of effort - Constitutional Constitutional: Fatigue, Lethargy, Malaise, Weakness Past Patient History - Infectious Disease Hx of Infectious Diseases: None - Tetanus Immunizations Tetanus Immunization: Up to Date - Past Medical History & Family History Past Medical History?: Yes - Past Social History Smoking Status: Current Some Days Smoker - CARDIAC Hx Hypercholesterolemia: Yes Hx Hypertension: Yes - PULMONARY Hx Asthma: Yes Hx Bronchitis: Yes Hx Chronic Obstructive Pulmonary Disease (COPD): Yes - NEUROLOGICAL Hx Seizures: Yes Hx Transient Ischemic Attacks (TIA): Yes - HEENT Hx HEENT Problems: No - RENAL Hx Chronic Kidney Disease: No Hx Kidney Stones: No - ENDOCRINE/METABOLIC Hx Hyperthyroidism: No Hx Hypothyroidism: No - HEMATOLOGICAL/ONCOLOGICAL Hx Anemia: Yes - INTEGUMENTARY Hx Dermatological Problems: No - MUSCULOSKELETAL/RHEUMATOLOGICAL Hx Arthritis: No Hx Fractures: No Hx Osteoporosis: No - GASTROINTESTINAL Hx Crohn's Disease: No Hx Diverticulitis: No Hx Gall Bladder Disease: No Hx Pancreatitis: No - GENITOURINARY/GYNECOLOGICAL Hx Sexually Transmitted Disorders: No - PSYCHIATRIC Hx Anxiety: Yes Hx Bipolar Disorder: Yes Hx Depression: Yes Hx Post Traumatic Stress Disorder: Yes Hx Substance Use: Yes (H/O HEROINE,COCAINE ABUSE.DENIES USE RECENTLY) - SURGICAL HISTORY Hx Appendectomy: No Hx Cholecystectomy: No Hx Coronary Stent: No - ANESTHESIA Hx Anesthesia: Yes Hx Anesthesia Reactions: No Hx Malignant Hyperthermia: No Meds Allergies/Adverse Reactions: Allergies Allergy/AdvReac Type Severity Reaction Status Date / Time PAT Inhibitors Allergy RASH Verified 06/10/17 09:10 Physical Exam - Constitutional Appears: Toxic, Confused - Head Exam Head Exam: ATRAUMATIC, NORMAL INSPECTION, NORMOCEPHALIC - Eye Exam Additional comments: pinpoint pupils - Respiratory Exam Respiratory Exam: Clear to Auscultation Bilateral, NORMAL BREATHING PATTERN - Cardiovascular Exam Cardiovascular Exam: REGULAR RHYTHM - GI/Abdominal Exam GI & Abdominal Exam: Normal Bowel Sounds, Soft. absent: Tenderness Results - Vital Signs Recent Vital Signs: Last Vital Signs Temp 97.4 F L 06/12/17 20:00 Pulse 58 L 06/12/17 23:00 Resp 20 06/12/17 23:00 BP 135/71 06/12/17 22:29 Pulse Ox 99 06/12/17 22:29 - Labs Result Diagrams: 06/12/17 13:43 06/12/17 13:43 Labs: Laboratory Results - last 24 hr 06/12/17 06/12/17 06/12/17 11:36 11:50 11:50 WBC RBC Hgb Hct MCV MCH MCHC RDW Plt Count MPV Neut % (Auto) Lymph % (Auto) [place] % (Auto) Eos % (Auto) Baso % (Auto) Neut # Lymph # [place] # Eos # Baso # Puncture Site pCO2 pO2 HCO3 ABG pH ABG Total CO2 ABG O2 Saturation ABG Base Excess ABG Hemoglobin ABG Carboxyhemoglobin POC ABG HHb (Measured) ABG Methemoglobin Donald Test A-a O2 Difference Respiratory Index Hgb O2 Saturation FiO2 Sodium Potassium Chloride Carbon Dioxide Anion Gap BUN Creatinine Est GFR ( Amer) Est GFR (Non-Af Amer) POC Glucose (mg/dL) 80 Random Glucose Calcium Total Bilirubin AST ALT Alkaline Phosphatase Ammonia Total Protein Albumin Globulin Albumin/Globulin Ratio Urine Color Yellow Urine Clarity Clear Urine pH 5.0 Ur Specific [place] 1.017 Urine Protein Negative Urine Glucose (UA) Normal Urine Ketones Negative Urine Blood Negative Urine Nitrate Negative Urine Bilirubin Negative Urine Urobilinogen Normal Ur Leukocyte Esterase Neg Urine WBC (Auto) 1 Ur Squamous Epith Cells < 1 Urine HCG, Qual Negative Urine Opiates Screen Positive H Urine Methadone Screen Positive Ur Barbiturates Screen Negative Ur Phencyclidine Scrn Negative Ur Amphetamines Screen Negative U Benzodiazepines Scrn Negative U Oth Cocaine Metabols Negative U Cannabinoids Screen Positive Alcohol, Quantitative 06/12/17 06/12/17 06/12/17 13:43 13:43 17:28 WBC 7.4 RBC 4.11 Hgb 13.0 Hct 38.1 MCV 92.8 MCH 31.8 H MCHC 34.2 RDW 15.2 H Plt Count 271 MPV 9.0 Neut % (Auto) 61.1 Lymph % (Auto) 28.8 [place] % (Auto) 7.3 Eos % (Auto) 2.0 Baso % (Auto) 0.8 Neut # 4.5 Lymph # 2.1 [place] # 0.5 Eos # 0.1 Baso # 0.1 Puncture Site Rra pCO2 32 L pO2 153 H HCO3 26.1 ABG pH 7.49 H ABG Total CO2 25.4 ABG O2 Saturation 99.9 H ABG Base Excess 1.6 ABG Hemoglobin 13.1 ABG Carboxyhemoglobin 2.7 H POC ABG HHb (Measured) 0.1 ABG Methemoglobin 1.3 Donald Test Pos A-a O2 Difference -43.0 Respiratory Index -0.3 Hgb O2 Saturation 95.9 FiO2 21.0 Sodium 140 Potassium 3.8 Chloride 106 Carbon Dioxide 25 Anion Gap 13 BUN 15 Creatinine 0.6 L Est GFR ( Amer) > 60 Est GFR (Non-Af Amer) > 60 POC Glucose (mg/dL) Random Glucose 79 Calcium 9.2 Total Bilirubin 0.4 AST 391 H ALT 546 H Alkaline Phosphatase 75 Ammonia Total Protein 7.4 Albumin 4.0 Globulin 3.4 Albumin/Globulin Ratio 1.2 Urine Color Urine Clarity Urine pH Ur Specific [place] Urine Protein Urine Glucose (UA) Urine Ketones Urine Blood Urine Nitrate Urine Bilirubin Urine Urobilinogen Ur Leukocyte Esterase Urine WBC (Auto) Ur Squamous Epith Cells Urine HCG, Qual Urine Opiates Screen Urine Methadone Screen Ur Barbiturates Screen Ur Phencyclidine Scrn Ur Amphetamines Screen U Benzodiazepines Scrn U Oth Cocaine Metabols U Cannabinoids Screen Alcohol, Quantitative < 10 06/12/17 18:24 WBC RBC Hgb Hct MCV MCH MCHC RDW Plt Count MPV Neut % (Auto) Lymph % (Auto) [place] % (Auto) Eos % (Auto) Baso % (Auto) Neut # Lymph # [place] # Eos # Baso # Puncture Site pCO2 pO2 HCO3 ABG pH ABG Total CO2 ABG O2 Saturation ABG Base Excess ABG Hemoglobin ABG Carboxyhemoglobin POC ABG HHb (Measured) ABG Methemoglobin Donald Test A-a O2 Difference Respiratory Index Hgb O2 Saturation FiO2 Sodium Potassium Chloride Carbon Dioxide Anion Gap BUN Creatinine Est GFR ( Amer) Est GFR (Non-Af Amer) POC Glucose (mg/dL) Random Glucose Calcium Total Bilirubin AST ALT Alkaline Phosphatase Ammonia 20 Total Protein Albumin Globulin Albumin/Globulin Ratio Urine Color Urine Clarity Urine pH Ur Specific [place] Urine Protein Urine Glucose (UA) Urine Ketones Urine Blood Urine Nitrate Urine Bilirubin Urine Urobilinogen Ur Leukocyte Esterase Urine WBC (Auto) Ur Squamous Epith Cells Urine HCG, Qual Urine Opiates Screen Urine Methadone Screen Ur Barbiturates Screen Ur Phencyclidine Scrn Ur Amphetamines Screen U Benzodiazepines Scrn U Oth Cocaine Metabols U Cannabinoids Screen Alcohol, Quantitative Assessment & Plan (1) Altered mental status Assessment and Plan: sleeping arousable with lot of effort under effect of heroine overdose hypotensive bradycardic monitor in ICU Status: Acute (2) Heroin abuse Assessment and Plan: urine drug scren is positive for cannaboids/opitaes Status: Acute (3) Drug overdose Assessment and Plan: admit neuro check psyc consult Status: Acute
[2017-06-13] MEDS: Sodium Chloride 0.9% 1,000 ML IV SCH ×2 (02:31→09:49)
[2017-06-13 06:19] LABS: BASO # 0.1 K/uL (0.0-0.2); BASO % 1.3 % (0.0-2.0); EOS # 0.1 K/uL (0.0-0.7); EOS % 1.6 % (0.0-4.0); HEMATOCRIT 40.2 % (34.0-47.0); LYMPH # 1.9 K/uL (1.0-4.3); LYMPH % 35.1 % (20.0-40.0); MEAN CELL VOLUME 92.7 fL (81.0-99.0); MEAN CORPUSCULAR HEMOGLOBIN 30.8 pg (27.0-31.0); MEAN CORPUSCULAR HGB CONC 33.2 g/dL (33.0-37.0); MEAN PLATELET VOLUME 9.8 fL (7.2-11.7); MONO # 0.5 K/uL (0.0-0.8); MONO % 9.2 % (0.0-10.0); NRBC % 0.1 % (0.0-2.0); RED CELL DISTRIBUTION WIDTH 15.3 % (11.5-14.5); WHITE BLOOD COUNT 5.5 K/uL (4.8-10.8)
[2017-06-13 06:35] LABS: CHLORIDE 105 mmol/L (98-107)
[2017-06-13 06:36] LABS: SODIUM 141 mmol/L (132-148)
[2017-06-13 06:37] LABS: POTASSIUM 3.7 mmol/L (3.6-5.2)
[2017-06-13 06:39] LABS: ALB/GLOB RATIO 1.1 (1.0-2.1); ALKALINE PHOSPHATASE 67 U/L (38-126); ALT/SGPT 611 U/L (9-52); AST/SGOT 478 U/L (14-36); BILIRUBIN,TOTAL 0.6 mg/dL (0.2-1.3); BLOOD UREA NITROGEN 16 mg/dL (7-17); CARBON DIOXIDE 24 mmol/L (22-30); GFR AFRICAN-AMERICAN > 60; GLUCOSE,RANDOM 62 mg/dL (65-105); PHOSPHOROUS 3.5 mg/dL (2.5-4.5); TOTAL PROTEIN 6.8 g/dL (6.3-8.3)
[2017-06-13 06:40] LABS: CALCIUM 8.9 mg/dl (8.6-10.4); MAGNESIUM 1.9 mg/dL (1.6-2.3)
[2017-06-13 07:15] LABS: HEPATITIS A TOTAL ANTIBODY NEG (NEGATIVE)
--- NOTE | 2017-06-13 08:55 | CP.CCUPN ---
<Alonzo Kennedy E - Last Filed: 06/13/17 12:27> CCU Subjective - Physician Review Subjective (Free Text): Patient was seen and examined at bedside. Patient seems to be mildly confused and unsure of her clinical course. Patient admits to intermittent mild chest pain but denies SOB, palpitation, fever, chills, nausea and vomiting. Patient reports that she is very hungry. CCU Objective - Vital Signs / Intake & Output Vital Signs (Last 4 hours): Vital Signs Pulse Resp BP 06/13/17 07:00 76 14 06/13/17 06:00 68 18 06/13/17 05:29 94 H 16 154/79 H 06/13/17 05:00 77 21 Intake and Output (Last 8hrs): Intake & Output 06/12/17 06/13/17 06/13/17 22:59 06:59 14:59 Intake Total 625 1000 250 Output Total 350 250 Balance 625 650 0 Weight 165 lb Intake: Intake, IV Amount 625 1000 250 Left Hand 625 1000 250 Output: Urine 350 250 Urine, Voided 350 250 Other: # Voids Urine, Voided 1 - Physical Exam Head: Positive for: Atraumatic, Normocephalic Extroacular Muscles: Positive for: EOMI Mouth: Positive for: Dry Neck: Positive for: Normal Range of Motion Respiratory/Chest: Positive for: Clear to Auscultation. Negative for: Respiratory Distress, Accessory Muscle Use Cardiovascular: Positive for: Regular Rate and Rhythm, Normal S1, S2 Abdomen: Positive for: Normal Bowel Sounds. Negative for: Tenderness, Distention, Peritoneal Signs Upper Extremity: Positive for: Normal Inspection Lower Extremity: Positive for: Normal Inspection Neurological: Positive for: GCS=15, Speech Normal Skin: Positive for: Normal Color Psychiatric: Positive for: Alert - Medications Active Medications: Active Medications Generic Name Dose Route Start Last Admin Trade Name Freq PRN Reason Stop Dose Admin Famotidine 20 mg 06/13/17 10:00 Pepcid PO BID ERNST Heparin Sodium (Porcine) 5,000 units 06/12/17 22:00 06/13/17 05:31 Heparin SC 5,000 units Q8 ERNST Administration Sodium Chloride 1,000 mls @ 125 mls/hr 06/12/17 16:30 06/13/17 02:31 Sodium Chloride 0.9% IV 125 mls/hr .Q8H ERNST Administration - Patient Studies Lab Studies: Lab Studies 06/13/17 06/13/17 06/13/17 Range/Units 06:04 06:04 06:04 WBC (4.8-10.8) K/uL RBC (3.80-5.20) Mil/uL Hgb (11.0-16.0) g/dL Hct (34.0-47.0) % MCV (81.0-99.0) fL MCH (27.0-31.0) pg MCHC (33.0-37.0) g/dL RDW (11.5-14.5) % Plt Count (130-400) K/uL MPV (7.2-11.7) fL Neut % (Auto) (50.0-75.0) % Lymph % (Auto) (20.0-40.0) % Hand % (Auto) (0.0-10.0) % Eos % (Auto) (0.0-4.0) % Baso % (Auto) (0.0-2.0) % Neut # (1.8-7.0) K/uL Lymph # (1.0-4.3) K/uL Hand # (0.0-0.8) K/uL Eos # (0.0-0.7) K/uL Baso # (0.0-0.2) K/uL Puncture Site pCO2 (35-45) mm/Hg pO2 (80-100) mm/Hg HCO3 (21-28) mmol/L ABG pH (7.35-7.45) ABG Total CO2 (22-28) mmol/L ABG O2 Saturation (95-98) % ABG Base Excess (-2.0-3.0) mmol/L ABG Hemoglobin (11.7-17.4) g/dL ABG Carboxyhemoglobin (0.5-1.5) % POC ABG HHb (Measured) (0.0-5.0) % ABG Methemoglobin (0.0-3.0) % Donald Test A-a O2 Difference mm/Hg Respiratory Index Hgb O2 Saturation (95.0-98.0) % FiO2 % Sodium 141 (132-148) mmol/L Potassium 3.7 (3.6-5.2) mmol/L Chloride 105 (98-107) mmol/L Carbon Dioxide 24 (22-30) mmol/L Anion Gap 16 (10-20) BUN 16 (7-17) mg/dL Creatinine 0.7 (0.7-1.2) mg/dL Est GFR ( Amer) > 60 Est GFR (Non-Af Amer) > 60 POC Glucose (mg/dL) (65-110) mg/dL Random Glucose 62 L (65-105) mg/dL Calcium 8.9 (8.6-10.4) mg/dl Phosphorus 3.5 (2.5-4.5) mg/dL Magnesium 1.9 (1.6-2.3) mg/dL Total Bilirubin 0.6 (0.2-1.3) mg/dL AST 478 H D (14-36) U/L ALT 611 H (9-52) U/L Alkaline Phosphatase 67 (38-126) U/L Ammonia (9-33) umol/L Total Protein 6.8 (6.3-8.3) g/dL Albumin 3.6 (3.5-5.0) g/dL Globulin 3.2 (2.2-3.9) gm/dL Albumin/Globulin Ratio 1.1 (1.0-2.1) Urine Color (YELLOW) Urine Clarity (Clear) Urine pH (5.0-8.0) Ur Specific Chauncey (1.003-1.030) Urine Protein (NEGATIVE) mg/dL Urine Glucose (UA) (Normal) mg/dL Urine Ketones (NEGATIVE) mg/dL Urine Blood (NEGATIVE) Urine Nitrate (NEGATIVE) Urine Bilirubin (NEGATIVE) Urine Urobilinogen (0.2-1.0) mg/dL Ur Leukocyte Esterase (Negative) Destiney/uL Urine WBC (Auto) (0-5) /hpf Ur Squamous Epith Cells (0-5) /hpf Urine HCG, Qual (NEGATIVE) Urine Opiates Screen (NEGATIVE) Urine Methadone Screen (NEGATIVE) Ur Barbiturates Screen (NEGATIVE) Ur Phencyclidine Scrn (NEGATIVE) Ur Amphetamines Screen (NEGATIVE) U Benzodiazepines Scrn (NEGATIVE) U Oth Cocaine Metabols (NEGATIVE) U Cannabinoids Screen (NEGATIVE) Alcohol, Quantitative (0-10) mg/dl Hepatitis A Ab Total Antibody neg (NEGATIVE) Hep Bs Antigen Negative (NEGATIVE) Hep Bs Antibody Negative (NEGATIVE) Hep B Core IgM Ab Negative (NEGATIVE) Hepatitis C Antibody Reactive (NEGATIVE) 06/13/17 06/12/17 06/12/17 Range/Units 06:04 18:24 17:28 WBC 5.5 (4.8-10.8) K/uL RBC 4.33 (3.80-5.20) Mil/uL Hgb 13.3 (11.0-16.0) g/dL Hct 40.2 (34.0-47.0) % MCV 92.7 (81.0-99.0) fL MCH 30.8 (27.0-31.0) pg MCHC 33.2 (33.0-37.0) g/dL RDW 15.3 H (11.5-14.5) % Plt Count 279 (130-400) K/uL MPV 9.8 (7.2-11.7) fL Neut % (Auto) 52.8 (50.0-75.0) % Lymph % (Auto) 35.1 (20.0-40.0) % Hand % (Auto) 9.2 (0.0-10.0) % Eos % (Auto) 1.6 (0.0-4.0) % Baso % (Auto) 1.3 (0.0-2.0) % Neut # 2.9 (1.8-7.0) K/uL Lymph # 1.9 (1.0-4.3) K/uL Hand # 0.5 (0.0-0.8) K/uL Eos # 0.1 (0.0-0.7) K/uL Baso # 0.1 (0.0-0.2) K/uL Puncture Site Rra pCO2 32 L (35-45) mm/Hg pO2 153 H (80-100) mm/Hg HCO3 26.1 (21-28) mmol/L ABG pH 7.49 H (7.35-7.45) ABG Total CO2 25.4 (22-28) mmol/L ABG O2 Saturation 99.9 H (95-98) % ABG Base Excess 1.6 (-2.0-3.0) mmol/L ABG Hemoglobin 13.1 (11.7-17.4) g/dL ABG Carboxyhemoglobin 2.7 H (0.5-1.5) % POC ABG HHb (Measured) 0.1 (0.0-5.0) % ABG Methemoglobin 1.3 (0.0-3.0) % Donald Test Pos A-a O2 Difference -43.0 mm/Hg Respiratory Index -0.3 Hgb O2 Saturation 95.9 (95.0-98.0) % FiO2 21.0 % Sodium (132-148) mmol/L Potassium (3.6-5.2) mmol/L Chloride (98-107) mmol/L Carbon Dioxide (22-30) mmol/L Anion Gap (10-20) BUN (7-17) mg/dL Creatinine (0.7-1.2) mg/dL Est GFR ( Amer) Est GFR (Non-Af Amer) POC Glucose (mg/dL) (65-110) mg/dL Random Glucose (65-105) mg/dL Calcium (8.6-10.4) mg/dl Phosphorus (2.5-4.5) mg/dL Magnesium (1.6-2.3) mg/dL Total Bilirubin (0.2-1.3) mg/dL AST (14-36) U/L ALT (9-52) U/L Alkaline Phosphatase (38-126) U/L Ammonia 20 (9-33) umol/L Total Protein (6.3-8.3) g/dL Albumin (3.5-5.0) g/dL Globulin (2.2-3.9) gm/dL Albumin/Globulin Ratio (1.0-2.1) Urine Color (YELLOW) Urine Clarity (Clear) Urine pH (5.0-8.0) Ur Specific Chauncey (1.003-1.030) Urine Protein (NEGATIVE) mg/dL Urine Glucose (UA) (Normal) mg/dL Urine Ketones (NEGATIVE) mg/dL Urine Blood (NEGATIVE) Urine Nitrate (NEGATIVE) Urine Bilirubin (NEGATIVE) Urine Urobilinogen (0.2-1.0) mg/dL Ur Leukocyte Esterase (Negative) Destiney/uL Urine WBC (Auto) (0-5) /hpf Ur Squamous Epith Cells (0-5) /hpf Urine HCG, Qual (NEGATIVE) Urine Opiates Screen (NEGATIVE) Urine Methadone Screen (NEGATIVE) Ur Barbiturates Screen (NEGATIVE) Ur Phencyclidine Scrn (NEGATIVE) Ur Amphetamines Screen (NEGATIVE) U Benzodiazepines Scrn (NEGATIVE) U Oth Cocaine Metabols (NEGATIVE) U Cannabinoids Screen (NEGATIVE) Alcohol, Quantitative (0-10) mg/dl Hepatitis A Ab Total (NEGATIVE) Hep Bs Antigen (NEGATIVE) Hep Bs Antibody (NEGATIVE) Hep B Core IgM Ab (NEGATIVE) Hepatitis C Antibody (NEGATIVE) 06/12/17 06/12/17 06/12/17 Range/Units 13:43 13:43 11:50 WBC 7.4 (4.8-10.8) K/uL RBC 4.11 (3.80-5.20) Mil/uL Hgb 13.0 (11.0-16.0) g/dL Hct 38.1 (34.0-47.0) % MCV 92.8 (81.0-99.0) fL MCH 31.8 H (27.0-31.0) pg MCHC 34.2 (33.0-37.0) g/dL RDW 15.2 H (11.5-14.5) % Plt Count 271 (130-400) K/uL MPV 9.0 (7.2-11.7) fL Neut % (Auto) 61.1 (50.0-75.0) % Lymph % (Auto) 28.8 (20.0-40.0) % Hand % (Auto) 7.3 (0.0-10.0) % Eos % (Auto) 2.0 (0.0-4.0) % Baso % (Auto) 0.8 (0.0-2.0) % Neut # 4.5 (1.8-7.0) K/uL Lymph # 2.1 (1.0-4.3) K/uL Hand # 0.5 (0.0-0.8) K/uL Eos # 0.1 (0.0-0.7) K/uL Baso # 0.1 (0.0-0.2) K/uL Puncture Site pCO2 (35-45) mm/Hg pO2 (80-100) mm/Hg HCO3 (21-28) mmol/L ABG pH (7.35-7.45) ABG Total CO2 (22-28) mmol/L ABG O2 Saturation (95-98) % ABG Base Excess (-2.0-3.0) mmol/L ABG Hemoglobin (11.7-17.4) g/dL ABG Carboxyhemoglobin (0.5-1.5) % POC ABG HHb (Measured) (0.0-5.0) % ABG Methemoglobin (0.0-3.0) % Donald Test A-a O2 Difference mm/Hg Respiratory Index Hgb O2 Saturation (95.0-98.0) % FiO2 % Sodium 140 (132-148) mmol/L Potassium 3.8 (3.6-5.2) mmol/L Chloride 106 (98-107) mmol/L Carbon Dioxide 25 (22-30) mmol/L Anion Gap 13 (10-20) BUN 15 (7-17) mg/dL Creatinine 0.6 L (0.7-1.2) mg/dL Est GFR ( Amer) > 60 Est GFR (Non-Af Amer) > 60 POC Glucose (mg/dL) (65-110) mg/dL Random Glucose 79 (65-105) mg/dL Calcium 9.2 (8.6-10.4) mg/dl Phosphorus (2.5-4.5) mg/dL Magnesium (1.6-2.3) mg/dL Total Bilirubin 0.4 (0.2-1.3) mg/dL AST 391 H (14-36) U/L ALT 546 H (9-52) U/L Alkaline Phosphatase 75 (38-126) U/L Ammonia (9-33) umol/L Total Protein 7.4 (6.3-8.3) g/dL Albumin 4.0 (3.5-5.0) g/dL Globulin 3.4 (2.2-3.9) gm/dL Albumin/Globulin Ratio 1.2 (1.0-2.1) Urine Color (YELLOW) Urine Clarity (Clear) Urine pH (5.0-8.0) Ur Specific Chauncey (1.003-1.030) Urine Protein (NEGATIVE) mg/dL Urine Glucose (UA) (Normal) mg/dL Urine Ketones (NEGATIVE) mg/dL Urine Blood (NEGATIVE) Urine Nitrate (NEGATIVE) Urine Bilirubin (NEGATIVE) Urine Urobilinogen (0.2-1.0) mg/dL Ur Leukocyte Esterase (Negative) Destiney/uL Urine WBC (Auto) (0-5) /hpf Ur Squamous Epith Cells (0-5) /hpf Urine HCG, Qual (NEGATIVE) Urine Opiates Screen Positive H (NEGATIVE) Urine Methadone Screen Positive (NEGATIVE) Ur Barbiturates Screen Negative (NEGATIVE) Ur Phencyclidine Scrn Negative (NEGATIVE) Ur Amphetamines Screen Negative (NEGATIVE) U Benzodiazepines Scrn Negative (NEGATIVE) U Oth Cocaine Metabols Negative (NEGATIVE) U Cannabinoids Screen Positive (NEGATIVE) Alcohol, Quantitative < 10 (0-10) mg/dl Hepatitis A Ab Total (NEGATIVE) Hep Bs Antigen (NEGATIVE) Hep Bs Antibody (NEGATIVE) Hep B Core IgM Ab (NEGATIVE) Hepatitis C Antibody (NEGATIVE) 06/12/17 06/12/17 Range/Units 11:50 11:36 WBC (4.8-10.8) K/uL RBC (3.80-5.20) Mil/uL Hgb (11.0-16.0) g/dL Hct (34.0-47.0) % MCV (81.0-99.0) fL MCH (27.0-31.0) pg MCHC (33.0-37.0) g/dL RDW (11.5-14.5) % Plt Count (130-400) K/uL MPV (7.2-11.7) fL Neut % (Auto) (50.0-75.0) % Lymph % (Auto) (20.0-40.0) % Hand % (Auto) (0.0-10.0) % Eos % (Auto) (0.0-4.0) % Baso % (Auto) (0.0-2.0) % Neut # (1.8-7.0) K/uL Lymph # (1.0-4.3) K/uL Hand # (0.0-0.8) K/uL Eos # (0.0-0.7) K/uL Baso # (0.0-0.2) K/uL Puncture Site pCO2 (35-45) mm/Hg pO2 (80-100) mm/Hg HCO3 (21-28) mmol/L ABG pH (7.35-7.45) ABG Total CO2 (22-28) mmol/L ABG O2 Saturation (95-98) % ABG Base Excess (-2.0-3.0) mmol/L ABG Hemoglobin (11.7-17.4) g/dL ABG Carboxyhemoglobin (0.5-1.5) % POC ABG HHb (Measured) (0.0-5.0) % ABG Methemoglobin (0.0-3.0) % Donald Test A-a O2 Difference mm/Hg Respiratory Index Hgb O2 Saturation (95.0-98.0) % FiO2 % Sodium (132-148) mmol/L Potassium (3.6-5.2) mmol/L Chloride (98-107) mmol/L Carbon Dioxide (22-30) mmol/L Anion Gap (10-20) BUN (7-17) mg/dL Creatinine (0.7-1.2) mg/dL Est GFR ( Amer) Est GFR (Non-Af Amer) POC Glucose (mg/dL) 80 (65-110) mg/dL Random Glucose (65-105) mg/dL Calcium (8.6-10.4) mg/dl Phosphorus (2.5-4.5) mg/dL Magnesium (1.6-2.3) mg/dL Total Bilirubin (0.2-1.3) mg/dL AST (14-36) U/L ALT (9-52) U/L Alkaline Phosphatase (38-126) U/L Ammonia (9-33) umol/L Total Protein (6.3-8.3) g/dL Albumin (3.5-5.0) g/dL Globulin (2.2-3.9) gm/dL Albumin/Globulin Ratio (1.0-2.1) Urine Color Yellow (YELLOW) Urine Clarity Clear (Clear) Urine pH 5.0 (5.0-8.0) Ur Specific Chauncey 1.017 (1.003-1.030) Urine Protein Negative (NEGATIVE) mg/dL Urine Glucose (UA) Normal (Normal) mg/dL Urine Ketones Negative (NEGATIVE) mg/dL Urine Blood Negative (NEGATIVE) Urine Nitrate Negative (NEGATIVE) Urine Bilirubin Negative (NEGATIVE) Urine Urobilinogen Normal (0.2-1.0) mg/dL Ur Leukocyte Esterase Neg (Negative) Destiney/uL Urine WBC (Auto) 1 (0-5) /hpf Ur Squamous Epith Cells < 1 (0-5) /hpf Urine HCG, Qual Negative (NEGATIVE) Urine Opiates Screen (NEGATIVE) Urine Methadone Screen (NEGATIVE) Ur Barbiturates Screen (NEGATIVE) Ur Phencyclidine Scrn (NEGATIVE) Ur Amphetamines Screen (NEGATIVE) U Benzodiazepines Scrn (NEGATIVE) U Oth Cocaine Metabols (NEGATIVE) U Cannabinoids Screen (NEGATIVE) Alcohol, Quantitative (0-10) mg/dl Hepatitis A Ab Total (NEGATIVE) Hep Bs Antigen (NEGATIVE) Hep Bs Antibody (NEGATIVE) Hep B Core IgM Ab (NEGATIVE) Hepatitis C Antibody (NEGATIVE) Laboratory Results - last 24 hr 06/12/17 06/12/17 06/12/17 11:36 11:50 11:50 WBC RBC Hgb Hct MCV MCH MCHC RDW Plt Count MPV Neut % (Auto) Lymph % (Auto) Hand % (Auto) Eos % (Auto) Baso % (Auto) Neut # Lymph # Hand # Eos # Baso # Puncture Site pCO2 pO2 HCO3 ABG pH ABG Total CO2 ABG O2 Saturation ABG Base Excess ABG Hemoglobin ABG Carboxyhemoglobin POC ABG HHb (Measured) ABG Methemoglobin Donald Test A-a O2 Difference Respiratory Index Hgb O2 Saturation FiO2 Sodium Potassium Chloride Carbon Dioxide Anion Gap BUN Creatinine Est GFR ( Amer) Est GFR (Non-Af Amer) POC Glucose (mg/dL) 80 Random Glucose Calcium Phosphorus Magnesium Total Bilirubin AST ALT Alkaline Phosphatase Ammonia Total Protein Albumin Globulin Albumin/Globulin Ratio Urine Color Yellow Urine Clarity Clear Urine pH 5.0 Ur Specific Chauncey 1.017 Urine Protein Negative Urine Glucose (UA) Normal Urine Ketones Negative Urine Blood Negative Urine Nitrate Negative Urine Bilirubin Negative Urine Urobilinogen Normal Ur Leukocyte Esterase Neg Urine WBC (Auto) 1 Ur Squamous Epith Cells < 1 Urine HCG, Qual Negative Urine Opiates Screen Positive H Urine Methadone Screen Positive Ur Barbiturates Screen Negative Ur Phencyclidine Scrn Negative Ur Amphetamines Screen Negative U Benzodiazepines Scrn Negative U Oth Cocaine Metabols Negative U Cannabinoids Screen Positive Alcohol, Quantitative Hepatitis A Ab Total Hep Bs Antigen Hep Bs Antibody Hep B Core IgM Ab Hepatitis C Antibody 06/12/17 06/12/17 06/12/17 13:43 13:43 17:28 WBC 7.4 RBC 4.11 Hgb 13.0 Hct 38.1 MCV 92.8 MCH 31.8 H MCHC 34.2 RDW 15.2 H Plt Count 271 MPV 9.0 Neut % (Auto) 61.1 Lymph % (Auto) 28.8 Hand % (Auto) 7.3 Eos % (Auto) 2.0 Baso % (Auto) 0.8 Neut # 4.5 Lymph # 2.1 Hand # 0.5 Eos # 0.1 Baso # 0.1 Puncture Site Rra pCO2 32 L pO2 153 H HCO3 26.1 ABG pH 7.49 H ABG Total CO2 25.4 ABG O2 Saturation 99.9 H ABG Base Excess 1.6 ABG Hemoglobin 13.1 ABG Carboxyhemoglobin 2.7 H POC ABG HHb (Measured) 0.1 ABG Methemoglobin 1.3 Donald Test Pos A-a O2 Difference -43.0 Respiratory Index -0.3 Hgb O2 Saturation 95.9 FiO2 21.0 Sodium 140 Potassium 3.8 Chloride 106 Carbon Dioxide 25 Anion Gap 13 BUN 15 Creatinine 0.6 L Est GFR ( Amer) > 60 Est GFR (Non-Af Amer) > 60 POC Glucose (mg/dL) Random Glucose 79 Calcium 9.2 Phosphorus Magnesium Total Bilirubin 0.4 AST 391 H ALT 546 H Alkaline Phosphatase 75 Ammonia Total Protein 7.4 Albumin 4.0 Globulin 3.4 Albumin/Globulin Ratio 1.2 Urine Color Urine Clarity Urine pH Ur Specific Chauncey Urine Protein Urine Glucose (UA) Urine Ketones Urine Blood Urine Nitrate Urine Bilirubin Urine Urobilinogen Ur Leukocyte Esterase Urine WBC (Auto) Ur Squamous Epith Cells Urine HCG, Qual Urine Opiates Screen Urine Methadone Screen Ur Barbiturates Screen Ur Phencyclidine Scrn Ur Amphetamines Screen U Benzodiazepines Scrn U Oth Cocaine Metabols U Cannabinoids Screen Alcohol, Quantitative < 10 Hepatitis A Ab Total Hep Bs Antigen Hep Bs Antibody Hep B Core IgM Ab Hepatitis C Antibody 06/12/17 06/13/17 06/13/17 18:24 06:04 06:04 WBC 5.5 RBC 4.33 Hgb 13.3 Hct 40.2 MCV 92.7 MCH 30.8 MCHC 33.2 RDW 15.3 H Plt Count 279 MPV 9.8 Neut % (Auto) 52.8 Lymph % (Auto) 35.1 Hand % (Auto) 9.2 Eos % (Auto) 1.6 Baso % (Auto) 1.3 Neut # 2.9 Lymph # 1.9 Hand # 0.5 Eos # 0.1 Baso # 0.1 Puncture Site pCO2 pO2 HCO3 ABG pH ABG Total CO2 ABG O2 Saturation ABG Base Excess ABG Hemoglobin ABG Carboxyhemoglobin POC ABG HHb (Measured) ABG Methemoglobin Donald Test A-a O2 Difference Respiratory Index Hgb O2 Saturation FiO2 Sodium 141 Potassium 3.7 Chloride 105 Carbon Dioxide 24 Anion Gap 16 BUN 16 Creatinine 0.7 Est GFR ( Amer) > 60 Est GFR (Non-Af Amer) > 60 POC Glucose (mg/dL) Random Glucose 62 L Calcium 8.9 Phosphorus 3.5 Magnesium 1.9 Total Bilirubin 0.6 AST 478 H D ALT 611 H Alkaline Phosphatase 67 Ammonia 20 Total Protein 6.8 Albumin 3.6 Globulin 3.2 Albumin/Globulin Ratio 1.1 Urine Color Urine Clarity Urine pH Ur Specific Chauncey Urine Protein Urine Glucose (UA) Urine Ketones Urine Blood Urine Nitrate Urine Bilirubin Urine Urobilinogen Ur Leukocyte Esterase Urine WBC (Auto) Ur Squamous Epith Cells Urine HCG, Qual Urine Opiates Screen Urine Methadone Screen Ur Barbiturates Screen Ur Phencyclidine Scrn Ur Amphetamines Screen U Benzodiazepines Scrn U Oth Cocaine Metabols U Cannabinoids Screen Alcohol, Quantitative Hepatitis A Ab Total Hep Bs Antigen Negative Hep Bs Antibody Hep B Core IgM Ab Hepatitis C Antibody 06/13/17 06/13/17 06:04 06:04 WBC RBC Hgb Hct MCV MCH MCHC RDW Plt Count MPV Neut % (Auto) Lymph % (Auto) Hand % (Auto) Eos % (Auto) Baso % (Auto) Neut # Lymph # Hand # Eos # Baso # Puncture Site pCO2 pO2 HCO3 ABG pH ABG Total CO2 ABG O2 Saturation ABG Base Excess ABG Hemoglobin ABG Carboxyhemoglobin POC ABG HHb (Measured) ABG Methemoglobin Donald Test A-a O2 Difference Respiratory Index Hgb O2 Saturation FiO2 Sodium Potassium Chloride Carbon Dioxide Anion Gap BUN Creatinine Est GFR ( Amer) Est GFR (Non-Af Amer) POC Glucose (mg/dL) Random Glucose Calcium Phosphorus Magnesium Total Bilirubin AST ALT Alkaline Phosphatase Ammonia Total Protein Albumin Globulin Albumin/Globulin Ratio Urine Color Urine Clarity Urine pH Ur Specific Chauncey Urine Protein Urine Glucose (UA) Urine Ketones Urine Blood Urine Nitrate Urine Bilirubin Urine Urobilinogen Ur Leukocyte Esterase Urine WBC (Auto) Ur Squamous Epith Cells Urine HCG, Qual Urine Opiates Screen Urine Methadone Screen Ur Barbiturates Screen Ur Phencyclidine Scrn Ur Amphetamines Screen U Benzodiazepines Scrn U Oth Cocaine Metabols U Cannabinoids Screen Alcohol, Quantitative Hepatitis A Ab Total Antibody neg Hep Bs Antigen Hep Bs Antibody Negative Hep B Core IgM Ab Negative Hepatitis C Antibody Reactive EKG/Cardiology Studies: Cardiology / EKG Studies 06/12/17 11:35 ELECTROCARDIOGRAM Stat Comment: Mode Of Transportation: BED Reason For Exam: Detox/Psy 06/12/17 15:50 ELECTROCARDIOGRAM Stat Comment: Mode Of Transportation: BED Reason For Exam: Detox/Psy Fingerstick Blood Sugar Results: 80 Review of Systems - Constitutional Constitutional: absent: Fever, Chills, Weakness - EENT Eyes: absent: Blurred Vision, Change in Vision Ears: Dizziness - Cardiovascular Cardiovascular: Chest Pain, Chest Pain at Rest, Lightheadedness. absent: Diaphoresis, Dyspnea, Dyspnea on Exertion, Edema, Palpitations - Respiratory Respiratory: absent: Dyspnea, Dyspnea on Exertion, Wheezing - Gastrointestinal Gastrointestinal: absent: Abdominal Pain, Nausea, Vomiting - Musculoskeletal Musculoskeletal: absent: Numbness, Tingling - Neurological Neurological: Dizziness. absent: Headaches, Paresthesias, Syncope, Tingling, Weakness - Endocrine Endocrine: Fatigue. absent: Palpitations Critical Care Progress Note - Nutrition Nutrition: Nutrition Category Date Time Status Regular Diet [DIET] Diets 06/13/17 Breakfast Active Assessment/Plan - Assessment and Plan (Free Text) Assessment: Patient is a 42 year old female with past medical history of asthma, bronchitis , anxiety, bipolar disorder, depression, GERD, HTN, hypercholesterolemia, PTSD, seizures, hepatitis C, who is admitted to the ICU for drug overdose and altered mental status. Today: Plan: Transfer to medical surgical floor Plan: Neuro: Alert and awake Cardio: Hx of HTN Pulm: Hx of asthma and bronchitis * Stable Endo: no acute issues GI: Transaminitis * Continue to monitor Heme: No acute issues Renal: No acute issues ID: Hx of hepatitis C, no acute issues Psych: Hx of anxiety, depression and substance abuse Psychiatry consulted, Dr. Lorenzana-----> help appreciated * Management as per recommendation Prophylaxis: DVT Prophylaxis: Heparin 5,000 SC Q8 GI Prophylaxis: Pepcid 20mg PO Plan: Transfer to medical surgical floor <Aubrey Saldaña M - Last Filed: 06/18/17 00:37> Critical Care Progress Note - Nutrition Nutrition: Nutrition Category Date Time Status Regular Diet [DIET] Diets 06/13/17 Breakfast Active Attending/Attestation - Attestation I have personally seen and examined this patient.: Yes I have fully participated in the care of the patient.: Yes I have reviewed all pertinent clinical information: Yes Notes (Text): 06/13/17 Today: Friday, June 13, 2017 The Patient was seen and examined at the bedside, Medical records reviewed, and management issues were discussed and formulated with the house staff. I have reviewed all the relevant clinical, laboratory, hemodynamic, radiographic data and medications Events reviewed Pain issues, skin care, head of the bed elevation, glycemic control were addressed. AAO x3 Continue current ICU management and hemodynamic monitoring. Psych evaluation GI/DVT PPX Code status: Full code I concur with resident's assessment and plan of care as transcribed in Dr. Kennedy note.
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
--- NOTE | 2017-06-13 19:34 | PCM.BM ---
<Adelina Morse - Last Filed: 06/13/17 19:30> Treatment Plan Problems - Problems identified on initial assessmt Depression Date Initiated: 06/13/17 Time Initiated: 19:00 Assessment reference: NA Status: Active Suicidal Ideation Date Initiated: 06/13/17 Time Initiated: 19:00 Assessment reference: NA Status: Active Treatment assets and liabiliti Patient Assests: adapts well, cooperative, ADL independent, physically healthy, negotiates basic needs, cognitively intact Patient Liabilities: live alone (Lives in [facility]), physical pain (Back pain), substance abuse (Opiates), medical problems (COPD, Anemia, Seizure, HTN) - Milieu Protocol Maintain good personal hygiene: daily Encourage regular showers, daily Remind patient to perform daily oral care, other Assist patient to perform ADL's (Self) Conduct patient checks and document Observation sheet: Q15 minutes (Safety) Maintain personal safety: every shift Educate patient to report safety concerns to staff, every shift Monitor environment for contraband/sharps Medication safety: Monitor for expected outcome, potential side effects: every shift, Assess barriers to learning: every shift, Assess readiness for medication education: every shift <Julissa Lorenzana - Last Filed: 06/14/17 13:41> - Diagnosis (1) Bipolar 1 disorder Status: Acute Interventions: 06/14/17 13:41 * Assess/adjust medications daily and /or as needed * See patient on an individual basis 7x/week to assess level of manic behaviors and stability * Discuss risks, benefits, side effects and alternatives of medications * (2) Opioid use disorder, severe, dependence Status: Acute Interventions: 06/14/17 13:43 * Assess 7x/week regarding severity of withdrawal * Educate regarding risks, benefits, side effects and alternatives of medications * Use Motivational Interviewing for abstinence * Use CBT for relapse prevention * Medication management for withdrawal symptoms * Encourage medication assisted treatment * <Junaid Quiroz - Last Filed: 06/15/17 14:56> - Diagnosis (1) Bipolar 1 disorder, depressed Status: Acute Interventions: Assess/adjust medications daily and/or as needed SEE patient on him individual basis 7x/week to assess status of hallucinations. Discuss risks, benefits, side effects and alternatives of medications. 06/15/17 14:55 (2) Borderline personality disorder Status: Acute Interventions: Assess/adjust medications daily and/or as needed SEE patient on him individual basis 7x/week to assess status of hallucinations. Discuss risks, benefits, side effects and alternatives of medications. 06/15/17 14:55 (3) Opioid dependence Status: Acute Interventions: Assess 7x/week regarding severity of withdrawal Educated regarding risks, benefits, side effects and alternatives of medications Used motivational interview for abstinence Used CBT for relapse prevention Medication management for withdrawal symptoms Encouraged medication assisted treatment 06/15/17 14:56 (4) Sedative, hypnotic or anxiolytic use disorder, severe, dependence Status: Acute Interventions: Assess 7x/week regarding severity of withdrawal Educated regarding risks, benefits, side effects and alternatives of medications Used motivational interview for abstinence Used CBT for relapse prevention Medication management for withdrawal symptoms Encouraged medication assisted treatment 06/15/17 14:56 (5) Cocaine use disorder, severe, dependence Status: Acute Interventions: Assess 7x/week regarding severity of withdrawal Educated regarding risks, benefits, side effects and alternatives of medications Used motivational interview for abstinence Used CBT for relapse prevention Medication management for withdrawal symptoms Encouraged medication assisted treatment 06/15/17 14:57 <Marlyn Tang - Last Filed: 06/16/17 10:25> Discharge/Continuing Care - Education Needs Education Needs: Patient Medication, Patient Coping Skills - Discharge Discharge Criteria: Tolerates medication w/o severe side effects, Free of Suicidal thoughts, Reduction of target symptoms
[2017-06-13] MEDS: Divalproex 500 mg DR Tab PO SCH (21:15)
[2017-06-14] MEDS: Divalproex 500 mg DR Tab PO SCH (09:13)
[2017-06-14 11:35] VITALS: O2SAT 100
--- NOTE | 2017-06-14 13:52 | PCM.PYCHPN ---
Psychiatric Progress Note - Psychiatric Progress Note Patient seen today, length of contact: 15 minute Patient Chief Complaint: I need more methadone. Problems Identified/Issues Discussed: Patient seen. Chart reviewed. Case discussed with the staff. Issues related to illness and treatment were discussed with the patient. Patient was transferred to [facility] from ICU, yesterday. He after coming to the unit patient started demanding high dose of methadone. Education provided to the patient about methadone. Previously patient got 5 mg of methadone in the ICU. Patient had no withdrawal symptoms. Stable vital signs and no apparent withdrawal symptoms. Methadone 5 mg and is a dose was given. This morning again patient was asking for 20 mg of methadone. Again education provided to the patient. Patient had no apparent withdrawal symptoms. Vital signs were normal. Patient was also asking for Ativan. Reported she is getting Ativan 2 mg twice a day from her PCP. Again education provided about these medications. We will provide Ativan 1 mg every 6 when necessary. Patient got methadone 5 mg today. After a few minutes again patient started demanding more methadone. Her urine drug screen on admission was positive for opiates, methadone and cannabis but not for benzos. The time of evaluation, patient was awake alert oriented 3, no auditory or visual hallucinations, no suicidal ideations or homicidal ideations, no auditory or visual hallucinations, no delusions. Medical Problems: Hepatitis C Hypertension Hypercholesterolemia Asthma Diagnostic Results: Reviewed DSM 5 Symptoms Update: Improvement with treatment Medication Change: Yes (Started Ativan 1 mg every 6 when necessary for anxiety) Medical Record Reviewed: Yes Mental Status Examination - Cognitive Function Orientation: Person, Place, Situation, Time Memory: Intact Attention: WNL Concentration: WNL Association: [facility] Fund of Knowledge: [facility] Decription of patient's judgement and insights: Poor - Mood Mood: Other (Angry) - Affect Affect: Other (Appropriate) - Speech Speech: Appropriate - Formal Thought Process Formal Thought Process: No Impairment - Suicidal Ideation Suicidal Ideation: No - Homicidal Ideation Homicidal Ideation: No Goal/Treatment Plan - Goal/Treatment Plan Need for Continued Stay: Remain at risks for inpatient hospitalization, Discharge may exacerbated symptoms, Severe functional impairment Progress Toward Problem(s) and Goals/Treatment Plan: Patient education Supportive therapy We will start Ativan 1 mg every 6 when necessary for anxiety Motivational interview for abstinence CBT for relapse prevention Estimated Date of D/C: 06/17/17 - Smoking Cessation Smoking Cessation Initiated: No
--- NOTE | 2017-06-15 15:00 | PCM.PYCHPN ---
Psychiatric Progress Note - Psychiatric Progress Note Patient seen today, length of contact: 15 minute Patient Chief Complaint: I'm not feeling better. I need more methadone. Problems Identified/Issues Discussed: Patient seen. Chart reviewed. Case discussed with the staff. Issues related to illness and treatment were discussed with the patient. Patient was transferred to [facility] from ICU, yesterday. Reported compliant with treatment with no adverse affects. Tolerating treatment very well Patient reported having severe withdrawal symptoms. Apparently patient had no withdrawal symptoms, patient was calm, cooperative no discomfort. Vitals within normal limit. We'll provide restaurant 5 mg once and will discontinue. Education provided to the patient about treatment. Yesterday patient signed 48 of a notice for discharge from the hospital, ending tomorrow on 06/16/2017. The time of evaluation, patient was awake alert oriented 3, no auditory or visual hallucinations, no suicidal ideations or homicidal ideations, no auditory or visual hallucinations, no delusions. Medical Problems: Hepatitis C Hypertension Hypercholesterolemia Asthma Diagnostic Results: Reviewed DSM 5 Symptoms Update: Improving with treatment Medication Change: Yes (Started Keppra 500 mg twice a day) Medical Record Reviewed: Yes Mental Status Examination - Cognitive Function Orientation: Person, Place, Situation, Time Memory: Intact Attention: WNL Concentration: WNL Association: [facility] Fund of Knowledge: [facility] Decription of patient's judgement and insights: Fair - Mood Mood: Depressed, Anxious - Affect Affect: Constricted - Speech Speech: Appropriate - Formal Thought Process Formal Thought Process: No Impairment Psychotic Thoughts and Behaviors: None - Suicidal Ideation Suicidal Ideation: No - Homicidal Ideation Homicidal Ideation: No Goal/Treatment Plan - Goal/Treatment Plan Need for Continued Stay: Remain at risks for inpatient hospitalization, Discharge may exacerbated symptoms, Severe functional impairment Progress Toward Problem(s) and Goals/Treatment Plan: Patient education Supportive therapy We will start Keppra 500 mg twice a day for seizure disorder. Patient was taking this medication before. Motivational interview for abstinence CBT for relapse prevention Estimated Date of D/C: 06/17/17 - Smoking Cessation Smoking Cessation Initiated: Yes
--- NOTE | 2017-06-15 18:21 | CARD ---
APPROVED REPORT EKG Measurement Heart [id number] <Conclusion> Sinus bradycardia with sinus arrhythmia Otherwise normal ECG
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
[2017-06-16] MEDS ORDERED: Pneumococcal 23-Valent Vaccine IM ONE (10:00)
[2017-06-16 10:29] VITALS: BP 129/94; PULSE 83; RESP 18; TEMP 98.3
== END 2017-06-16 12:05 | disposition home or self-care (01) | DRG 430 ==
LOC: C.ER 11:31 → C.9I 15:39 → UNDODISIN 06-13 18:50 → C.5E 06-13 18:56
PROC: GZ3ZZZZ Medication Management (ICD-10-PCS; principal; 2017-06-12)
PROC: HZ89ZZZ Medication Management for Substance Abuse Treatment, Other Replacement Medication (ICD-10-PCS; 2017-06-12)
PROC: GZHZZZZ Group Psychotherapy (ICD-10-PCS; 2017-06-12)
PROC: GZ56ZZZ Individual Psychotherapy, Supportive (ICD-10-PCS; 2017-06-12)
PROC: HZ46ZZZ Group Counseling for Substance Abuse Treatment, Psychoeducation (ICD-10-PCS; 2017-06-12)
DX: F31.30 Bipolar disorder, current episode depressed, mild or moderate severity, unspecified (principal); F11.20 Opioid dependence, uncomplicated; R45.851 Suicidal ideations; F14.20 Cocaine dependence, uncomplicated; F13.20 Sedative, hypnotic or anxiolytic dependence, uncomplicated; F60.3 Borderline personality disorder; J44.9 Chronic obstructive pulmonary disease, unspecified; F43.10 Post-traumatic stress disorder, unspecified; F10.20 Alcohol dependence, uncomplicated; B19.20 Unspecified viral hepatitis C without hepatic coma; I10 Essential (primary) hypertension; G40.909 Epilepsy, unspecified, not intractable, without status epilepticus; K21.9 Gastro-esophageal reflux disease without esophagitis; G89.29 Other chronic pain; E78.00 Pure hypercholesterolemia, unspecified; Z91.5 Personal history of self-harm; Z85.41 Personal history of malignant neoplasm of cervix uteri; Z86.73 Personal history of transient ischemic attack (TIA), and cerebral infarction without residual deficits

== ENCOUNTER 2017-12-07 15:21 | Inpatient (IN) | payer MEDICAID, OTHER ==
[2017-12-07 15:21] VITALS: BMI 26.6
[2017-12-07 16:56] LABS: BASO # 0.1 K/uL (0.0-0.2); BASO % 1.3 % (0.0-2.0); EOS # 0.1 K/uL (0.0-0.7); EOS % 1.4 % (0.0-4.0); HEMOGLOBIN 12.8 g/dL (11.0-16.0); LYMPH % 28.6 % (20.0-40.0); MEAN CELL VOLUME 93.4 fL (81.0-99.0); MEAN CORPUSCULAR HEMOGLOBIN 31.7 pg (27.0-31.0); MEAN PLATELET VOLUME 8.2 fL (7.2-11.7); MONO # 0.3 K/uL (0.0-0.8); MONO % 4.2 % (0.0-10.0); NEUT # 4.6 K/uL (1.8-7.0); NEUT % 64.5 % (50.0-75.0); RBC 4.03 Mil/uL (3.80-5.20); RED CELL DISTRIBUTION WIDTH 13.3 % (11.5-14.5); WHITE BLOOD COUNT 7.1 K/uL (4.8-10.8)
[2017-12-07 16:59] LABS: SQUAMOUS EPITHIAL 1 /hpf (0-5); URINE AMORPHOUS SEDIMENT RARE /ul (<OCC); URINE BACTERIA RARE (<OCC); URINE BILIRUBIN NEGATIVE (NEGATIVE); URINE BLOOD NEGATIVE (NEGATIVE); URINE CLARITY Hazy (Clear); URINE COLOR Yellow (YELLOW); URINE GLUCOSE (UA) NORMAL (Normal); URINE LEUKOCYTE ESTERASE NEG Leu/uL (Negative); URINE PROTEIN NEGATIVE (NEGATIVE); URINE UROBILINOGEN NORMAL mg/dL (0.2-1.0)
[2017-12-07 17:01] LABS: HCG,QUALITATIVE URINE NEGATIVE (NEGATIVE)
[2017-12-07 17:07] LABS: ALB/GLOB RATIO 1.1 (1.0-2.1); ALBUMIN 3.9 g/dL (3.5-5.0); ALT/SGPT 54 U/L (9-52); AST/SGOT 44 U/L (14-36); BLOOD UREA NITROGEN 12 mg/dL (7-17); CALCIUM 9.1 mg/dl (8.6-10.4); GFR AFRICAN-AMERICAN > 60; GFR NON-AFRICAN AMERICAN > 60
[2017-12-07 17:11] LABS: BARBITURATES, UR NEGATIVE (NEGATIVE); BENZODIAZEPINES, UR NEGATIVE (NEGATIVE); PHENCYCLIDINE, UR NEGATIVE (NEGATIVE)
[2017-12-07 17:13] LABS: OPIATES, UR POSITIVE (NEGATIVE)
--- NOTE | 2017-12-07 17:33 | C.PDOC ---
History Of Present Illness Pt is here requesting detox from Heroin and alcohol. Time Seen by Provider: 12/07/17 16:05 Chief Complaint (Nursing): Substance Abuse History Per: Patient Onset/Duration Of Symptoms: Days Current Symptoms Are (Timing): Still Present Suicide/Self Injury Attempted (Context): None Modifying Factor(s): Alcohol, Narcotics Severity: Moderate Associated Symptoms: denies: Suicidal Thoughts, Suicidal Plan Additional History Per: Prior Records Past Medical History Reviewed: Historical Data, Nursing Documentation, Vital Signs Vital Signs: Last Vital Signs Temp 99.0 F 12/07/17 17:11 Pulse 93 H 12/07/17 17:11 Resp 22 12/07/17 17:11 BP 157/104 H 12/07/17 17:11 Pulse Ox 96 12/07/17 17:35 - Medical History PMH: Anemia, Anxiety, Asthma, Back Problems (SPINAL SURGERY IN 2005), Bipolar Disorder, Bronchitis, COPD, Depression, GERD, HTN, Hypercholesterolemia, Post Traumatic Stress Disorder, Seizures, TIA Surgical History: Back Surgery - [facility] Procedures ALCOHOL DETOXIFICATION (12/13/14) BILAT ENDOS OCC TUBE NEC (12/20/97) C.A.T. SCAN OF HEAD (03/31/07) CLOSED ENDOSCOPIC BIOPSY OF LARGE INTESTINE (05/10/14) DETOXIFICATION SERVICES FOR SUBSTANCE ABUSE TREATMENT (10/19/16) DPT ADMINISTRATION (07/06/14) DRAINAGE OF RIGHT KNEE JOINT, PERCUTANEOUS APPROACH, DIAGN (12/08/15) DX ULTRASOUND-DIGESTIVE (04/10/15) ESOPHAGOGASTRODUODENOSCOPY [EGD] W/CLOSED BIOPSY (04/10/15) GROUP FIBER OPTIC TECHNICIAN FOR SUBSTANCE ABUSE TREATMENT, PSYCHOEDUCATION (06/12/17) GROUP PSYCHOTHERAPY (06/12/17) IMMOBILIZ/WOUND ATTN NEC (04/28/14) INCIS VULVA/PERINEUM NEC (04/28/14) INDIV FIBER OPTIC TECHNICIAN FOR SUBSTANCE ABUSE TREATMENT, PSYCHOEDUCATION (10/19/16) INDIV PSYCHOTHERAPY FOR SUBSTANCE ABUSE TREATMENT, SUPPORT (10/19/16) INDIV PSYCHOTHERAPY FOR SUBSTANCE ABUSE, PSYCHOEDUCATION (07/07/16) INDIVID PSYCHOTHERAP NEC (08/07/14) INDIVIDUAL PSYCHOTHERAPY, COGNITIVE-BEHAVIORAL (10/19/16) INDIVIDUAL PSYCHOTHERAPY, SUPPORTIVE (06/12/17) INJECT/INFUSE ELECTROLYT (06/11/14) INJECT/INFUSE NEC (11/14/14) INSERT INDWELLING CATH (05/07/14) INTRODUCE OF OTH THERAP SUBST INTO RESP TRACT, VIA OPENING (03/19/17) MEDICATION MANAGEMENT (06/12/17) MEDS MGMT FOR SUBSTANCE ABUSE TREATMENT, OTH REPL MED (06/12/17) NEBULIZER THERAPY (12/13/14) OTHER GROUP THERAPY (08/07/14) PSYCHIA INTERV/EVAL NEC (11/14/14) PSYCHIAT DRUG THERAP NEC (05/22/14) VENOUS PUNCTURE NEC (08/02/14) Family History: States: Unknown Family Hx - Social History Hx Tobacco Use: Yes Hx Alcohol Use: Yes Hx Substance Use: Yes (Snorts Heroin) - Immunization History Hx Tetanus Toxoid Vaccination: No Hx Influenza Vaccination: No Hx Pneumococcal Vaccination: No Review Of Systems Except As Marked, All Systems Reviewed And Found Negative. Constitutional: Negative for: Fever, Weakness Cardiovascular: Negative for: Chest Pain Respiratory: Negative for: Shortness of Breath Gastrointestinal: Positive for: Vomiting, Diarrhea Musculoskeletal: Negative for: Neck Pain Neurological: Negative for: Weakness, Numbness Physical Exam - Physical Exam Appears: Non-toxic, No Acute Distress Skin: Normal Color, Warm, Dry, No Rash Head: Atraumatic, Normacephalic Eye(s): bilateral: PERRL, EOMI Neck: Normal ROM, Supple Cardiovascular: Rhythm Regular Respiratory: Normal Breath Sounds, No Accessory Muscle Use Gastrointestinal/Abdominal: Soft Extremity: Normal ROM Neurological/Psych: Oriented x3, Normal Motor, Normal Sensation ED Course And Treatment - Laboratory Results Result Diagrams: 12/07/17 16:51 12/07/17 16:51 Lab Interpretation: No Acute Changes Urine POC: Negative O2 Sat by Pulse Oximetry: 96 Pulse Ox Interpretation: Normal Progress Note: Pt is medically stable for detox admission. Disposition Counseled Patient/Family Regarding: Studies Performed, Diagnosis, Smoking Cessation - Disposition Disposition: HOSPITALIZED Disposition Time: 17:35 Condition: STABLE - Clinical Impression Clinical Impression: Opioid dependence, Alcohol dependence Decision To Admit - Pt Status Changed To: Hospital Disposition Of: Inpatient - Admit Certification Admit to Inpatient:: After my assessment, the patient will require hospitalization for at least two midnights. This is because of the severity of symptoms shown, intensity of services needed, and/or the medical risk in this patient being treated as an outpatient. - InPatient: Physician Admission Certification: I certify that this patient requires 2 or more midnights of care for the following reason:: Detox. - . Bed Request Type: Detox Admitting Physician: Junaid Quiroz Patient Diagnosis: Alcohol dependence, Opioid dependence
[2017-12-07] MEDS ORDERED: Buprenorphine Hydrochloride 2 mg SL ONE ×2 (19:15→20:00)
--- NOTE | 2017-12-07 20:38 | PCM.BM ---
<SilviaLitoKinjal - Last Filed: 12/07/17 22:35> Treatment Plan Problems - Problems identified on initial assessmt Potential for alcohol withdrawal Date Initiated: 12/07/17 Time Initiated: 20:37 Assessment reference: NA Status: Active Priority: 1 Potential for opiate withdrawal Date Initiated: 12/07/17 Time Initiated: 20:37 Assessment reference: NA Status: Active Priority: 2 Treatment assets and liabiliti Patient Assests: adapts well, cooperative, ADL independent, negotiates basic needs, cognitively intact Patient Liabilities: substance abuse (opiates, ETOH), other (homelessness) - Milieu Protocol Maintain good personal hygiene: daily Encourage regular showers, daily Remind patient to perform daily oral care, daily Assist patient to perform ADL's Conduct patient checks and document Observation sheet: Q15 minutes Maintain personal safety: every shift Educate patient to report safety concerns to staff, every shift Monitor environment for contraband/sharps Medication safety: Monitor for expected outcome, potential side effects: every shift, Assess barriers to learning: every shift, Assess readiness for medication education: every shift <Lyndasy Caceres - Last Filed: 12/08/17 11:22> Family Contact Family involvement: Famliy/SO not involved - Goals for Treatment Patient goals for treatment: COMPLETE DETOX AND DISCUSS AFTERCARE OPTIONS WITH COUNSELING STAFF. Discharge/Continuing Care - Education Needs Education Needs: Patient Medication, Patient Diagnosis/Disease Process, Patient Coping Skills, Patient Anger Management skills, Patient Placement options, Patient Community resources - Discharge Discharge Criteria: Ability to care for self, No longer exhibiting s/s of withdrawal, Reduction of target symptoms - Additional Comments 12/08/17 11:23 AFTERCARE tbd. - Treatment Team Participation Discussed with Family/SO: No Was Patient/Family/SO present at Treatment Team Meeting: Yes <Julissa Lorenzana - Last Filed: 12/09/17 00:18> - Diagnosis (1) Alcohol dependence Status: Acute Interventions: 12/09/17 00:18 * Assess 7x/week regarding severity of withdrawal * Educate regarding risks, benefits, side effects and alternatives of medications * Use Motivational Interviewing for abstinence * Use CBT for relapse prevention * Medication management for withdrawal symptoms * Encourage medication assisted treatment * (2) Opioid use disorder, severe, dependence Status: Acute Interventions: 12/09/17 00:18 * Assess 7x/week regarding severity of withdrawal * Educate regarding risks, benefits, side effects and alternatives of medications * Use Motivational Interviewing for abstinence * Use CBT for relapse prevention * Medication management for withdrawal symptoms * Encourage medication assisted treatment *
[2017-12-08] MEDS: Buprenorphine Hydrochloride 2 mg SL SCH (09:32)
--- NOTE | 2017-12-08 10:28 | PCM.PSYCH ---
Initial Psychiatric Evaluation - Initial Psychiatric Evaluation Type of Admission: Voluntary Legal Status: Capacity Chief Complaint (in patient's own words): "I need help again" History of Present Illness and Precipitating Events: The pt is seen, chart reviewed and case discussed. She is well known from previous admissions She is a 42 yo AAF, single, with 2 adult children, unemployed, lives with a female friend She is using 10 bags heroin intranasally on and off many years, klonopin 1 mg/d , 2 x 24 oz beers + 4 "Hiwasse's" and "some vodka" She reports wdw sxs in both [place] on and off She was on methadone in the past but discharged bc of her benzo use This is her 3rd detox, rehab once First use was 14 y/o Past psych hx: PTSD due to many traumas, major depression, many psych admissions (8 last year - all with depression) Medical hx: HTN, COPD, seizure d/o - Not on any meds for these conditions. last sz was not recently Family psych hx: Almost all family members and her children use or used drugs. Current Medications: Active Medications Generic Name Dose Route Start Last Admin Trade Name Freq PRN Reason Stop Dose Admin Buprenorphine HCl 8 mg 12/08/17 10:00 12/08/17 09:32 Subutex SL 12/12/17 09:59 8 mg DAILY ERNST Administration Taper Chlordiazepoxide 25 mg 12/08/17 00:00 12/08/17 06:24 Librium PO 12/11/17 23:59 25 mg Q6 ERNST Administration Taper Chlordiazepoxide 25 mg 12/07/17 19:30 12/08/17 09:35 Librium PO 25 mg Q4H PRN Administration Alcohol Withdrawal Clonidine HCl 0.1 mg 12/07/17 20:17 12/08/17 06:24 Catapres PO 0.1 mg Q8 PRN Administration opiate withdrawal Ibuprofen 400 mg 12/07/17 20:15 12/07/17 20:31 Motrin Tab PO 400 mg Q8 PRN Administration Pain, moderate (4-7) Trazodone HCl 50 mg 12/07/17 22:15 12/07/17 22:36 Desyrel PO 50 mg HS PRN Administration Insomnia Past Psychiatric History - Past Psychiatric History Previous Treatment History: Inpatient Pertinent Medical Hx (Current Medical&Sleep Prob, Allergies): Allergies Allergy/AdvReac Type Severity Reaction Status Date / Time PAT Inhibitors Allergy Intermediate RASH Verified 12/07/17 15:35 Baclofen [Lioresal] 10 mg PO HS 12/07/17 Clonazepam [Klonopin] 0.5 mg PO BID 12/07/17 Levetiracetam [Keppra] 750 mg PO BID 12/07/17 Review of Systems - Neurological Neurological: UNREMARKABLE - Psychiatric Psychiatric: Abnormal Sleep Pattern, Anxiety, Difficulty Concentrating, Irritability. absent: Hallucinations, Homicidal Ideation, Suicidal Ideation Mental Status Examination - Personal Presentation Personal Presentation: Looks stated age - Affect Affect: Constricted - Motor Activity Motor Activity: Calm - Reliability in Providing Information Reliability in Providing Information: Good - Speech Speech: Organized - Mood Mood: Anxious - Formal Thought Process Formal Thought Process: No Impairment - Cognitive Functions Orientation: Person, Place, Situation, Time Sensorium: Alert Attention/Concentration: Attentive Estimate of Intelligence: Average Judgement: Intact, as evidence by: Insight regarding need for hospitalization Memory: Recent intact, as evidence by: Ability to recall events of the day, Remote intact, as evidenced by: Abilit to recall sig. 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 Attend groups and activities Supportive therapy and psychoeducation [place] for abstinence CBT for relapse prevention Encourage MAT Refer to rehab or IOP Attend self-help groups as well [place] for smoking cessation and patch if needed 34 min Projected ELOS: 4-5 days - Smoking Cessation Smoking Cessation Initiated: Yes
[2017-12-09] MEDS ORDERED: Albuterol HFA 90 mcg/actuation (8 g) INH PRN (00:29)
[2017-12-09] MEDS: Buprenorphine Hydrochloride 2 mg SL SCH (09:21)
--- NOTE | 2017-12-09 15:11 | PCM.PYCHPN ---
Psychiatric Progress Note - Psychiatric Progress Note Patient seen today, length of contact: 16 min Patient Chief Complaint: "I cannot sleep" Problems Identified/Issues Discussed: The pt is seen, chart reviewed, case discussed with staff. Support given, CBT and [place] used briefly No new symptoms reported, improving slowly and needs more time No SEs from medications, risks discussed. After care discussed Medication Change: Yes (detox changes daily) Medical Record Reviewed: Yes Mental Status Examination - Cognitive Function Orientation: Person, Place, Situation, Time Memory: Intact Attention: WNL Concentration: Poor Association: WNL Fund of Knowledge: WNL - Mood Mood: Anxious - Affect Affect: Constricted - Speech Speech: Appropriate - Formal Thought Process Formal Thought Process: No Impairment - Suicidal Ideation Suicidal Ideation: No - Homicidal Ideation Homicidal Ideation: No Goal/Treatment Plan - Goal/Treatment Plan Need for Continued Stay: Discharge may exacerbated symptoms, Severe functional impairment Progress Toward Problem(s) and Goals/Treatment Plan: Subutex and librium detox As needed medications Gabapentin for augmentation if needed All risks, benefits and alternatives of medications, including no medications, discussed and the patient understood and agreed. Attend groups and activities Supportive therapy and psychoeducation [place] for abstinence CBT for relapse prevention Encourage MAT Refer to rehab or IOP Attend self-help groups as well [place] for smoking cessation and patch if needed
[2017-12-10] MEDS: Buprenorphine Hydrochloride 2 mg SL SCH (09:52)
--- NOTE | 2017-12-10 13:47 | PCM.PYCHPN ---
Psychiatric Progress Note - Psychiatric Progress Note Patient seen today, length of contact: 16 min Patient Chief Complaint: "I am better" Problems Identified/Issues Discussed: The pt is seen, chart reviewed, case discussed with staff. The pt is compliant with medications and reports no side-effects. Symptoms are improving but needs more time to stabilize. After care discussed, support and psychoeducation given. Medication Change: Yes (detox changes daily) Medical Record Reviewed: Yes Mental Status Examination - Cognitive Function Orientation: Person, Place, Situation, Time Memory: Intact Attention: WNL Concentration: Poor Association: WNL Fund of Knowledge: WNL - Mood Mood: Anxious - Affect Affect: Constricted - Speech Speech: Appropriate - Formal Thought Process Formal Thought Process: No Impairment - Suicidal Ideation Suicidal Ideation: No - Homicidal Ideation Homicidal Ideation: No Goal/Treatment Plan - Goal/Treatment Plan Need for Continued Stay: Discharge may exacerbated symptoms, Severe functional impairment Progress Toward Problem(s) and Goals/Treatment Plan: Subutex and librium detox As needed medications Gabapentin for augmentation if needed All risks, benefits and alternatives of medications, including no medications, discussed and the patient understood and agreed. Attend groups and activities Supportive therapy and psychoeducation [place] for abstinence CBT for relapse prevention Encourage MAT Refer to rehab or IOP Attend self-help groups as well [place] for smoking cessation and patch if needed
[2017-12-11] MEDS: Buprenorphine Hydrochloride 2 mg SL SCH (10:15)
--- NOTE | 2017-12-11 22:30 | PCM.PYCHPN ---
Psychiatric Progress Note - Psychiatric Progress Note Patient seen today, length of contact: 18 min Patient Chief Complaint: "I can leave" Problems Identified/Issues Discussed: The pt is seen, chart reviewed, case discussed with staff. Support given, CBT and [place] used briefly No new symptoms reported, improving slowly and needs more time - She agreed to stay, b/c she took too many libriums yesterday and needs to taper off No SEs from medications, risks discussed. After care discussed Medication Change: Yes (detox changes daily) Medical Record Reviewed: Yes Mental Status Examination - Cognitive Function Orientation: Person, Place, Situation, Time Memory: Intact Attention: WNL Concentration: Poor Association: WNL Fund of Knowledge: WNL - Mood Mood: Anxious - Affect Affect: Constricted - Speech Speech: Appropriate - Formal Thought Process Formal Thought Process: No Impairment - Suicidal Ideation Suicidal Ideation: No - Homicidal Ideation Homicidal Ideation: No Goal/Treatment Plan - Goal/Treatment Plan Need for Continued Stay: Discharge may exacerbated symptoms, Severe functional impairment Progress Toward Problem(s) and Goals/Treatment Plan: Subutex and librium detox As needed medications Gabapentin for augmentation if needed All risks, benefits and alternatives of medications, including no medications, discussed and the patient understood and agreed. Attend groups and activities Supportive therapy and psychoeducation [place] for abstinence CBT for relapse prevention Encourage MAT Refer to rehab or IOP Attend self-help groups as well [place] for smoking cessation and patch if needed
--- NOTE | 2017-12-12 08:35 | PCM.PYCHDC ---
Mental Status Examination - Mental Status Examination Orientation: Person Discharge Summary - Discharge Note Consultations:: List each consultation separately and include: 1. Reason for request. 2. Findings. 3. Follow-up Summary of Hospital Course include:: 1. Description of specific treatment plan utilized for patients during their course of treatmen. 2. Summarize the time- course for resolution of acute symptoms and/or regressed behaviors. 3. Describe issues identified and worked on during hospitalization. 4. Describe medication utilized. 5. Describe medical problems identified and treated. 6. Reassessment of suicide risk Summary of Hospital Course: The pt is seen, chart reviewed and case discussed. She is well known from previous admissions She is a 42 yo AAF, single, with 2 adult children, unemployed, lives with a female friend She is using 10 bags heroin intranasally on and off many years, klonopin 1 mg/d , 2 x 24 oz beers + 4 "Delta's" and "some vodka" She reports wdw sxs in both [place] on and off She was on methadone in the past but discharged bc of her benzo use This is her 3rd detox, rehab once First use was 14 y/o Past psych hx: PTSD due to many traumas, major depression, many psych admissions (8 last year - all with depression) Medical hx: HTN, COPD, seizure d/o - Not on any meds for these conditions. last sz was not recently Family psych hx: Almost all family members and her children use or used drugs. She will go to [facility] for suboxone treatment. - Diagnosis (1) Alcohol dependence Current Visit: Yes Status: Acute (2) Opioid use disorder, severe, dependence Current Visit: No Status: Acute - Final Diagnosis (DSM 5) Condition upon Discharge: STABLE Disposition: HOME/ ROUTINE Follow-up Treatment Plan: Subutex and librium detox As needed medications Gabapentin for augmentation if needed All risks, benefits and alternatives of medications, including no medications, discussed and the patient understood and agreed. Attend groups and activities Supportive therapy and psychoeducation [place] for abstinence CBT for relapse prevention Encourage MAT Refer to rehab or IOP Attend self-help groups as well [place] for smoking cessation and patch if needed Prescriptions/Medication Reconciliation: Albuterol HFA [Ventolin HFA 90 mcg/actuation (8 g)] 1 puff INH RQ4 PRN #1 inhaler PRN Reason: SOB amLODIPine [Norvasc] 10 mg PO DAILY #30 tab cloNIDine [Catapres] 0.1 mg PO DAILY PRN #30 tab PRN Reason: opiate withdrawal Gabapentin [Neurontin] 300 mg PO TID #90 cap hydrOXYzine HCl [Atarax] 50 mg PO BID PRN #60 tab PRN Reason: Anxiety QUEtiapine [Seroquel] 100 mg PO HS #30 tab traZODone [Desyrel] 100 mg PO HS PRN #30 tab PRN Reason: Insomnia
[2017-12-12] MEDS ORDERED: Buprenorphine Hydrochloride 2 mg SL ONE (09:00)
[2017-12-12 11:07] VITALS: BP 102/67; PULSE 109; RESP 20; TEMP 98.9; O2SAT 99
== END 2017-12-12 10:30 | disposition home or self-care (01) | DRG 744 ==
LOC: C.ER 15:21 → C.7D 17:36
DX: F10.239 Alcohol dependence with withdrawal, unspecified (principal); J44.9 Chronic obstructive pulmonary disease, unspecified; F11.23 Opioid dependence with withdrawal; F12.90 Cannabis use, unspecified, uncomplicated; F43.10 Post-traumatic stress disorder, unspecified; G40.909 Epilepsy, unspecified, not intractable, without status epilepticus; I10 Essential (primary) hypertension; K21.9 Gastro-esophageal reflux disease without esophagitis; Z86.73 Personal history of transient ischemic attack (TIA), and cerebral infarction without residual deficits; Z87.891 Personal history of nicotine dependence

== ENCOUNTER 2018-01-11 07:51 | Inpatient (IN) | payer MEDICAID, OTHER ==
[2018-01-11 07:52] VITALS: BMI 26.6
[2018-01-11 09:18] LABS: BASO # 0.1 K/uL (0.0-0.2); EOS # 0.1 K/uL (0.0-0.7); EOS % 1.5 % (0.0-4.0); HEMOGLOBIN 12.9 g/dL (11.0-16.0); LYMPH # 1.7 K/uL (1.0-4.3); LYMPH % 30.2 % (20.0-40.0); MEAN CORPUSCULAR HEMOGLOBIN 31.6 pg (27.0-31.0); MEAN CORPUSCULAR HGB CONC 34.7 g/dL (33.0-37.0); MEAN PLATELET VOLUME 8.7 fL (7.2-11.7); MONO # 0.5 K/uL (0.0-0.8); MONO % 8.8 % (0.0-10.0); NEUT # 3.3 K/uL (1.8-7.0); NEUT % 58.5 % (50.0-75.0); NRBC % 0.1 % (0.0-2.0); RBC 4.09 Mil/uL (3.80-5.20); RED CELL DISTRIBUTION WIDTH 13.4 % (11.5-14.5); SQUAMOUS EPITHIAL 12 /hpf (0-5); URINE BILIRUBIN NEGATIVE (NEGATIVE); URINE BLOOD NEGATIVE (NEGATIVE); URINE CLARITY Hazy (Clear); URINE COLOR Yellow (YELLOW); URINE GLUCOSE (UA) NORMAL (Normal); URINE LEUKOCYTE ESTERASE NEG Leu/uL (Negative); URINE PROTEIN NEGATIVE (NEGATIVE); URINE UROBILINOGEN NORMAL mg/dL (0.2-1.0); WHITE BLOOD COUNT 5.6 K/uL (4.8-10.8)
[2018-01-11 09:19] LABS: HCG,QUALITATIVE URINE NEGATIVE (NEGATIVE)
[2018-01-11 09:29] LABS: ALB/GLOB RATIO 1.2 (1.0-2.1); ALT/SGPT 99 U/L (9-52); AST/SGOT 77 U/L (14-36); BLOOD UREA NITROGEN 11 mg/dL (7-17); CALCIUM 9.3 mg/dl (8.6-10.4); GFR AFRICAN-AMERICAN > 60; GFR NON-AFRICAN AMERICAN > 60
--- NOTE | 2018-01-11 09:33 | C.PDOC ---
History Of Present Illness Pt is here requesting detox from Heroin and Alcohol. Time Seen by Provider: 01/11/18 08:04 Chief Complaint (Nursing): Substance Abuse History Per: Patient Onset/Duration Of Symptoms: Days Current Symptoms Are (Timing): Still Present Suicide/Self Injury Attempted (Context): None Modifying Factor(s): Alcohol, Narcotics Severity: Moderate Associated Symptoms: denies: Suicidal Thoughts, Suicidal Plan Additional History Per: Prior Records Past Medical History Reviewed: Historical Data, Nursing Documentation, Vital Signs Vital Signs: Last Vital Signs Temp 98.6 F 01/11/18 07:54 Pulse 96 H 01/11/18 07:54 Resp 18 01/11/18 07:54 BP 152/104 H 01/11/18 07:54 Pulse Ox 100 01/11/18 09:33 - Medical History PMH: Anemia, Anxiety, Asthma, Back Problems (SPINAL SURGERY IN 2005), Bipolar Disorder, Bronchitis, COPD, Depression, GERD, HTN, Hypercholesterolemia, Post Traumatic Stress Disorder, Seizures, TIA Surgical History: Back Surgery - [facility] Procedures ALCOHOL DETOXIFICATION (12/13/14) BILAT ENDOS OCC TUBE NEC (12/20/97) C.A.T. SCAN OF HEAD (03/31/07) CLOSED ENDOSCOPIC BIOPSY OF LARGE INTESTINE (05/10/14) DETOXIFICATION SERVICES FOR SUBSTANCE ABUSE TREATMENT (10/19/16) DPT ADMINISTRATION (07/06/14) DRAINAGE OF RIGHT KNEE JOINT, PERCUTANEOUS APPROACH, DIAGN (12/08/15) DX ULTRASOUND-DIGESTIVE (04/10/15) ESOPHAGOGASTRODUODENOSCOPY [EGD] W/CLOSED BIOPSY (04/10/15) GROUP PROCESS CONTROL BOARD OPERATOR FOR SUBSTANCE ABUSE TREATMENT, PSYCHOEDUCATION (06/12/17) GROUP PSYCHOTHERAPY (06/12/17) IMMOBILIZ/WOUND ATTN NEC (04/28/14) INCIS VULVA/PERINEUM NEC (04/28/14) INDIV PROCESS CONTROL BOARD OPERATOR FOR SUBSTANCE ABUSE TREATMENT, PSYCHOEDUCATION (10/19/16) INDIV PSYCHOTHERAPY FOR SUBSTANCE ABUSE TREATMENT, SUPPORT (10/19/16) INDIV PSYCHOTHERAPY FOR SUBSTANCE ABUSE, PSYCHOEDUCATION (07/07/16) INDIVID PSYCHOTHERAP NEC (08/07/14) INDIVIDUAL PSYCHOTHERAPY, COGNITIVE-BEHAVIORAL (10/19/16) INDIVIDUAL PSYCHOTHERAPY, SUPPORTIVE (06/12/17) INJECT/INFUSE ELECTROLYT (06/11/14) INJECT/INFUSE NEC (11/14/14) INSERT INDWELLING CATH (05/07/14) INTRODUCE OF OTH THERAP SUBST INTO RESP TRACT, VIA OPENING (03/19/17) MEDICATION MANAGEMENT (06/12/17) MEDS MGMT FOR SUBSTANCE ABUSE TREATMENT, OTH REPL MED (06/12/17) NEBULIZER THERAPY (12/13/14) OTHER GROUP THERAPY (08/07/14) PSYCHIA INTERV/EVAL NEC (11/14/14) PSYCHIAT DRUG THERAP NEC (05/22/14) VENOUS PUNCTURE NEC (08/02/14) Family History: States: Unknown Family Hx - Social History Hx Tobacco Use: Yes Hx Alcohol Use: Yes Hx Substance Use: Yes (Snorts Heroin) - Immunization History Hx Tetanus Toxoid Vaccination: No Hx Influenza Vaccination: No Hx Pneumococcal Vaccination: No Review Of Systems Except As Marked, All Systems Reviewed And Found Negative. Constitutional: Negative for: Fever Cardiovascular: Negative for: Chest Pain Respiratory: Negative for: Shortness of Breath Gastrointestinal: Negative for: Vomiting, Abdominal Pain Musculoskeletal: Negative for: Neck Pain Neurological: Negative for: Weakness Physical Exam - Physical Exam Appears: Non-toxic, No Acute Distress Skin: Normal Color, Warm, Dry Head: Atraumatic, Normacephalic Eye(s): bilateral: PERRL, EOMI Neck: Normal ROM, Supple Cardiovascular: Rhythm Regular Respiratory: Normal Breath Sounds, No Accessory Muscle Use Gastrointestinal/Abdominal: Soft, No Tenderness Extremity: Normal ROM Neurological/Psych: Oriented x3, Normal Motor, Normal Sensation ED Course And Treatment - Laboratory Results Result Diagrams: 01/11/18 09:10 01/11/18 09:10 Urine POC: Negative O2 Sat by Pulse Oximetry: 100 Pulse Ox Interpretation: Normal Progress Note: Pt is medically stable for detox admission. Disposition Counseled Patient/Family Regarding: Studies Performed, Diagnosis, Smoking Cessation - Disposition Disposition: HOSPITALIZED Disposition Time: 09:52 Condition: STABLE - Clinical Impression Clinical Impression: Opioid dependence Decision To Admit - Pt Status Changed To: Hospital Disposition Of: Inpatient - Admit Certification Admit to Inpatient:: After my assessment, the patient will require hospitalization for at least two midnights. This is because of the severity of symptoms shown, intensity of services needed, and/or the medical risk in this patient being treated as an outpatient. - InPatient: Physician Admission Certification: I certify that this patient requires 2 or more midnights of care for the following reason:: Detox. - . Bed Request Type: Detox Admitting Physician: Julissa Lorenzana Patient Diagnosis: Opioid dependence
[2018-01-11 09:39] LABS: BARBITURATES, UR NEGATIVE (NEGATIVE); BENZODIAZEPINES, UR NEGATIVE (NEGATIVE); PHENCYCLIDINE, UR NEGATIVE (NEGATIVE)
[2018-01-11 09:41] LABS: OPIATES, UR POSITIVE (NEGATIVE)
[2018-01-11] MEDS ORDERED: Aluminum Hydroxide/Magnesium Hydroxide Susp (30 mL) PO PRN (10:26)
--- NOTE | 2018-01-11 11:41 | PCM.BM ---
<Bernadette Dewitt - Last Filed: 01/11/18 11:39> Treatment Plan Problems - Problems identified on initial assessmt Potential for alcohol withdrawal Date Initiated: 01/11/18 Time Initiated: 11:40 Assessment reference: NA Potential for opiate withdrawal Date Initiated: 01/11/18 Time Initiated: 11:40 Assessment reference: NA Treatment assets and liabiliti Patient Assests: adapts well, cooperative, insightful, self-reliant, ADL independent, negotiates basic needs, cognitively intact Patient Liabilities: live alone, financial problems, substance abuse, medical problems - Milieu Protocol Maintain good personal hygiene: every shift Encourage regular showers, every shift Remind patient to perform daily oral care, every shift Assist patient to perform ADL's Maintain personal safety: every shift Educate patient to report safety concerns to staff, every shift Monitor environment for contraband/sharps Medication safety: Monitor for expected outcome, potential side effects: every shift, Assess barriers to learning: every shift, Assess readiness for medication education: every shift <Julissa Lorenzana - Last Filed: 01/12/18 13:58> - Diagnosis (1) Opioid dependence Status: Acute Interventions: 01/12/18 13:58 * Assess 7x/week regarding severity of withdrawal * Educate regarding risks, benefits, side effects and alternatives of medications * Use Motivational Interviewing for abstinence * Use CBT for relapse prevention * Medication management for withdrawal symptoms * Encourage medication assisted treatment * (2) Alcohol dependence Status: Acute Interventions: 01/12/18 13:58 * Assess 7x/week regarding severity of withdrawal * Educate regarding risks, benefits, side effects and alternatives of medications * Use Motivational Interviewing for abstinence * Use CBT for relapse prevention * Medication management for withdrawal symptoms * Encourage medication assisted treatment * <Lyndsay Caceres - Last Filed: 01/13/18 12:27> Family Contact Family involvement: Famliy/SO not involved - Goals for Treatment Patient goals for treatment: COMPLETE DETOX AND TRANSITION TO RETIREMENT REHAB. Discharge/Continuing Care - Education Needs Education Needs: Family Medication, Family Diagnosis/Disease Process, Family Coping Skills, Family Anger Management skills, Family Placement options, Family Community resources, Patient Medication, Patient Diagnosis/Disease Process, Patient Coping Skills, Patient Anger Management skills, Patient Placement options, Patient Community resources - Discharge Discharge Criteria: No longer exhibiting s/s of withdrawal, Reduction of target symptoms Discharge to:: Substance Abuse Rehab - Treatment Team Participation Patient/Family/SO Statement: 01/13/18 12:27 "I NEED TO GO TO INPATIENT WHEN I LEAVE HERE SO I DON'T GET CAUGHT UP WITH THE WRONG CROWD AGAIN." Discussed with Family/SO: No Was Patient/Family/SO present at Treatment Team Meeting: Yes
--- NOTE | 2018-01-11 11:51 | PCM.PSYCH ---
Initial Psychiatric Evaluation - Initial Psychiatric Evaluation Type of Admission: Voluntary Legal Status: Capacity Chief Complaint (in patient's own words): "I relapsed" History of Present Illness and Precipitating Events: The pt is seen, chart reviewed and case discussed. She is well known from previous admissions She is a 42 yo AAF, single, with 2 adult children, unemployed, lives with a female friend on and off She is well-known from numerous admissions She is using 10-20 bags heroin intranasally on and off many years, klonopin 1 mg /d, 4 x 24 oz beers + 4 "G[place]'s" and "some vodka" again She was last sent to [facility] for suboxne treatment but she says she was "not ready" and relapsed. She got admitted to [facility] but they discharged her after a day She uses MJ on and off and crack cocaine She was on methadone in the past but discharged bc of her benzo use This is her 4th detox, rehab once First use was 14 y/o Past psych hx: PTSD due to many traumas, bipolar I depression, many psych admissions (8 last year - all with depression). She blames her family with ostracizing her. Medical hx: HTN, COPD, seizure d/o - Not on any meds for these conditions. last sz was not recently Family psych hx: Almost all family members and her children use or used drugs. Current Medications: Active Medications Generic Name Dose Route Start Last Admin Trade Name Freq PRN Reason Stop Dose Admin Al Hydrox/Mg Hydrox/Simethicone 30 ml 01/11/18 10:26 Maalox 30 Ml PO TID PRN Indigestion / Heartburn Clonidine HCl 0.1 mg 01/11/18 10:26 01/11/18 11:36 Catapres PO 0.1 mg Q8 PRN Administration COWS Score More or Equal to 5 Hydroxyzine HCl 50 mg 01/11/18 10:29 01/11/18 11:36 Atarax PO 50 mg Q6H PRN Administration Anxiety Ibuprofen 600 mg 01/11/18 10:29 Motrin Tab PO Q6H PRN Pain, moderate (4-7) Loperamide HCl 2 mg 01/11/18 10:26 Imodium PO Q8 PRN Diarrhea Ondansetron HCl 4 mg 01/11/18 10:26 Zofran Tab PO Q8 PRN Nausea/Vomiting Quetiapine Fumarate 100 mg 01/11/18 22:00 Seroquel PO HS ERNST Trazodone HCl 100 mg 01/11/18 10:29 Desyrel PO HS PRN Insomnia Past Psychiatric History - Past Psychiatric History Previous Treatment History: Inpatient Pertinent Medical Hx (Current Medical&Sleep Prob, Allergies): Allergies Allergy/AdvReac Type Severity Reaction Status Date / Time PAT Inhibitors Allergy Intermediate RASH Verified 01/11/18 07:58 Baclofen [Lioresal] 10 mg PO HS 12/07/17 Clonazepam [Klonopin] 0.5 mg PO BID 12/07/17 Gabapentin [Neurontin] 300 mg PO TID #90 cap 12/12/17 QUEtiapine [Seroquel] 100 mg PO HS #30 tab 12/12/17 traZODone [Desyrel] 100 mg PO HS PRN #30 tab 12/12/17 Folic Acid 1 mg PO DAILY 30 Days tab 12/19/17 Levetiracetam [Keppra] 750 mg PO BID 30 Days tablet 12/19/17 Multimineral/Multivitamin [Therapeutic-M Tab] 1 tab PO 0800 30 Days tab Thiamine [Vitamin B1 Tab] 100 mg PO DAILY 30 Days tab 12/19/17 amLODIPine [Norvasc] 10 mg PO DAILY #30 tab 12/19/17 Review of Systems - Psychiatric Psychiatric: Abnormal Sleep Pattern, Anhedonia, Anxiety, Depression, Difficulty Concentrating. absent: Hallucinations, Homicidal Ideation, Suicidal Ideation Mental Status Examination - Personal Presentation Personal Presentation: Looks stated age - Affect Affect: Constricted - Motor Activity Motor Activity: Calm - Reliability in Providing Information Reliability in Providing Information: Good - Speech Speech: Organized - Mood Mood: Depressed, Anxious - Formal Thought Process Formal Thought Process: No Impairment - Cognitive Functions Orientation: Person, Place, Situation, Time Sensorium: Alert Attention/Concentration: Attentive Estimate of Intelligence: Average Judgement: Intact, as evidence by: Insight regarding need for hospitalization Memory: Recent intact, as evidence by: Ability to recall events of the day, Remote intact, as evidenced by: Abilit to recall sig. life events - Risk Risk: Withdrawal, Diminished functioning - Strength & Assets Inventory Strength & Assets Inventory: Cooperative - Limitations Limitations: Living alone, Other DSM 5 DX - DSM 5 DSM 5 Diagnosis: Opioid withdrawal Opioid use d/o - severe Alcohol use d/o - severe Bipolar d/o - depressed Borderline Personality d/o Alcohol withdrawal Cannabis use d/o PTSD - Recommended/Plan of Treatment Treatment Recommendations and Plan of Treatment: Methadone and librium detox As needed medications Gabapentin for augmentation if needed Depakote instead of Keppra for seizure d/o - She refuses Keppra due to "taste" Seroquel for Bipolar - depressed Norvasc for HTN All risks, benefits and alternatives of medications, including no medications, discussed and the patient understood and agreed. Attend groups and activities Supportive therapy and psychoeducation [place] for abstinence CBT for relapse prevention Encourage MAT Refer to rehab or IOP Attend self-help groups as well [place] for smoking cessation and patch if needed 34 min Projected ELOS: 5 days Prognosis: good w treatment Discharge Plan and Discharge Criteria: Rehab this time - she agreed, followed by MAT - Smoking Cessation Smoking Cessation Initiated: Yes
[2018-01-11] MEDS: Multiple Vitamins Tab PO SCH (12:26)
[2018-01-11] MEDS ORDERED: Buprenorphine Hydrochloride 2 mg SL ONE ×2 (15:43→16:43)
[2018-01-11] MEDS: Divalproex 500 mg DR Tab PO SCH (17:13)
[2018-01-12] MEDS: Buprenorphine Hydrochloride 2 mg SL SCH (09:09)
[2018-01-12] MEDS: Multiple Vitamins Tab PO SCH (09:09)
[2018-01-12] MEDS: Divalproex 500 mg DR Tab PO SCH ×2 (09:09→17:27)
--- NOTE | 2018-01-12 13:58 | PCM.PYCHPN ---
Psychiatric Progress Note - Psychiatric Progress Note Patient seen today, length of contact: 16 min Patient Chief Complaint: "I may need more subutex" Problems Identified/Issues Discussed: The pt is seen, chart reviewed, case discussed with staff. Support and psychoeducation given, CBT and AL used briefly No new symptoms reported, improving slowly and needs more time No SEs from medications, risks discussed. After care discussed Medication Change: Yes (detox changes daily) Medical Record Reviewed: Yes Mental Status Examination - Cognitive Function Orientation: Person, Place, Situation, Time Memory: Intact Attention: WNL Concentration: Poor Association: WNL Fund of Knowledge: WNL - Mood Mood: Depressed, Anxious - Affect Affect: Constricted - Speech Speech: Appropriate - Formal Thought Process Formal Thought Process: No Impairment - Suicidal Ideation Suicidal Ideation: No - Homicidal Ideation Homicidal Ideation: No Goal/Treatment Plan - Goal/Treatment Plan Need for Continued Stay: Discharge may exacerbated symptoms, Severe functional impairment Progress Toward Problem(s) and Goals/Treatment Plan: Subutex and librium detox As needed medications Gabapentin for augmentation if needed Depakote instead of Keppra for seizure d/o - She refuses Keppra due to "taste" Seroquel for Bipolar - depressed Norvasc for HTN All risks, benefits and alternatives of medications, including no medications, discussed and the patient understood and agreed. Attend groups and activities Supportive therapy and psychoeducation AL for abstinence CBT for relapse prevention Encourage MAT Refer to rehab or IOP Attend self-help groups as well [place] for smoking cessation and patch if needed
[2018-01-13] MEDS: Divalproex 500 mg DR Tab PO SCH ×2 (09:36→17:47)
[2018-01-13] MEDS: Buprenorphine Hydrochloride 2 mg SL SCH (09:36)
[2018-01-13] MEDS: Multiple Vitamins Tab PO SCH (09:36)
--- NOTE | 2018-01-13 21:58 | PCM.PYCHPN ---
Psychiatric Progress Note - Psychiatric Progress Note Patient seen today, length of contact: 16 min Patient Chief Complaint: "I may need more subutex" Problems Identified/Issues Discussed: The pt is seen, chart reviewed, case discussed with staff. Support and psychoeducation given, CBT and DE used briefly No new symptoms reported, improving slowly and needs more time No SEs from medications, risks discussed. After care discussed Medication Change: Yes (detox changes daily) Medical Record Reviewed: Yes Mental Status Examination - Cognitive Function Orientation: Person, Place, Situation, Time Memory: Intact Attention: WNL Concentration: Poor Association: WNL Fund of Knowledge: WNL - Mood Mood: Depressed, Anxious - Affect Affect: Constricted - Speech Speech: Appropriate - Formal Thought Process Formal Thought Process: No Impairment - Suicidal Ideation Suicidal Ideation: No - Homicidal Ideation Homicidal Ideation: No Goal/Treatment Plan - Goal/Treatment Plan Need for Continued Stay: Discharge may exacerbated symptoms, Severe functional impairment Progress Toward Problem(s) and Goals/Treatment Plan: Subutex and librium detox As needed medications Gabapentin for augmentation if needed Depakote instead of Keppra for seizure d/o - She refuses Keppra due to "taste" Seroquel for Bipolar - depressed Norvasc for HTN All risks, benefits and alternatives of medications, including no medications, discussed and the patient understood and agreed. Attend groups and activities Supportive therapy and psychoeducation [place] for abstinence CBT for relapse prevention Encourage MAT Refer to rehab or IOP Attend self-help groups as well [place] for smoking cessation and patch if needed
[2018-01-14] MEDS: Multiple Vitamins Tab PO SCH (09:39)
[2018-01-14] MEDS: Divalproex 500 mg DR Tab PO SCH ×2 (09:40→17:56)
[2018-01-14] MEDS: Buprenorphine Hydrochloride 2 mg SL SCH (09:40)
[2018-01-14] MEDS ORDERED: Magnesium Hydroxide Susp 30 ml UD PO ONE (10:00)
[2018-01-14 16:19] VITALS: RESP 18
--- NOTE | 2018-01-15 08:54 | PCM.PYCHDC ---
Mental Status Examination - Mental Status Examination Orientation: Person Discharge Summary - Discharge Note Consultations:: List each consultation separately and include: 1. Reason for request. 2. Findings. 3. Follow-up Summary of Hospital Course include:: 1. Description of specific treatment plan utilized for patients during their course of treatmen. 2. Summarize the time- course for resolution of acute symptoms and/or regressed behaviors. 3. Describe issues identified and worked on during hospitalization. 4. Describe medication utilized. 5. Describe medical problems identified and treated. 6. Reassessment of suicide risk Summary of Hospital Course: The pt is seen, chart reviewed and case discussed. She is well known from previous admissions She is a 42 yo AAF, single, with 2 adult children, unemployed, lives with a female friend on and off She is well-known from numerous admissions She is using 10-20 bags heroin intranasally on and off many years, klonopin 1 mg /d, 4 x 24 oz beers + 4 "[place]'s" and "some vodka" again She was last sent to [facility] for suboxne treatment but she says she was "not ready" and relapsed. She got admitted to [facility] but they discharged her after a day She uses MJ on and off and crack cocaine She was on methadone in the past but discharged bc of her benzo use This is her 4th detox, rehab once First use was 14 y/o Past psych hx: PTSD due to many traumas, bipolar I depression, many psych admissions (8 last year - all with depression). She blames her family with ostracizing her. Medical hx: HTN, COPD, seizure d/o - Not on any meds for these conditions. last sz was not recently Family psych hx: Almost all family members and her children use or used drugs. She is rejected by [facility] due to medicl issues but went to [facility]. - Diagnosis (1) Opioid dependence Current Visit: Yes Status: Acute (2) Alcohol dependence Current Visit: No Status: Acute - Final Diagnosis (DSM 5) Condition upon Discharge: STABLE Disposition: HOME/ ROUTINE Follow-up Treatment Plan: Subutex and librium detox As needed medications Gabapentin for augmentation if needed Depakote instead of Keppra for seizure d/o - She refuses Keppra due to "taste" Seroquel for Bipolar - depressed Norvasc for HTN All risks, benefits and alternatives of medications, including no medications, discussed and the patient understood and agreed. Attend groups and activities Supportive therapy and psychoeducation [place] for abstinence CBT for relapse prevention Encourage MAT Refer to rehab or IOP Attend self-help groups as well [place] for smoking cessation and patch if needed
[2018-01-15 09:16] VITALS: BP 108/77; PULSE 87; TEMP 98.1; O2SAT 100
[2018-01-15] MEDS: Multiple Vitamins Tab PO SCH (09:44)
[2018-01-15] MEDS: Divalproex 500 mg DR Tab PO SCH (09:44)
[2018-01-15] MEDS: Buprenorphine Hydrochloride 2 mg SL SCH (09:45)
== END 2018-01-15 12:25 | disposition home or self-care (01) | DRG 744 ==
LOC: C.ER 07:51 → C.9E 09:53 → C.7D 11:01
PROVIDERS: ADMIT Psychiatry & Neurology Psychiatry; ATTEND Psychiatry & Neurology Psychiatry
PROC: HZ99ZZZ Pharmacotherapy for Substance Abuse Treatment, Other Replacement Medication (ICD-10-PCS; principal; 2018-01-11)
PROC: HZ2ZZZZ Detoxification Services for Substance Abuse Treatment (ICD-10-PCS; 2018-01-11)
PROC: HZ52ZZZ Individual Psychotherapy for Substance Abuse Treatment, Cognitive-Behavioral (ICD-10-PCS; 2018-01-11)
PROC: HZ59ZZZ Individual Psychotherapy for Substance Abuse Treatment, Supportive (ICD-10-PCS; 2018-01-11)
PROC: HZ56ZZZ Individual Psychotherapy for Substance Abuse Treatment, Psychoeducation (ICD-10-PCS; 2018-01-11)
DX: F11.23 Opioid dependence with withdrawal (principal); J44.9 Chronic obstructive pulmonary disease, unspecified; F10.239 Alcohol dependence with withdrawal, unspecified; F12.90 Cannabis use, unspecified, uncomplicated; F13.90 Sedative, hypnotic, or anxiolytic use, unspecified, uncomplicated; F31.9 Bipolar disorder, unspecified; F43.10 Post-traumatic stress disorder, unspecified; F60.3 Borderline personality disorder; I10 Essential (primary) hypertension; F32.9 Major depressive disorder, single episode, unspecified

== ENCOUNTER 2018-03-07 08:36 | Inpatient (IN) | payer MEDICAID, OTHER ==
[2018-03-07 08:37] VITALS: BMI 26.6
--- NOTE | 2018-03-07 10:22 | C.PDOC ---
History Of Present Illness 42 year old female presents to the ED requesting detox from heroin, cocaine, and alcohol. Patient admits to last use of drugs was today. Patient denies any SI/HI or withdrawal symptoms. Time Seen by Provider: 03/07/18 08:50 Chief Complaint (Nursing): Substance Abuse History Per: Patient History/Exam Limitations: no limitations Onset/Duration Of Symptoms: Hrs Current Symptoms Are (Timing): Still Present Suicide/Self Injury Attempted (Context): None Modifying Factor(s): Alcohol, Narcotics, Cocaine Associated Symptoms: denies: Suicidal Thoughts Past Medical History Reviewed: Historical Data, Nursing Documentation, Vital Signs Vital Signs: Last Vital Signs Temp 97.8 F 03/07/18 12:00 Pulse 81 03/07/18 12:00 Resp 18 03/07/18 12:00 BP 125/86 03/07/18 12:00 Pulse Ox 100 03/07/18 13:07 - Medical History PMH: Anemia, Anxiety, Asthma, Back Problems (SPINAL SURGERY IN 2005), Bipolar Disorder, Bronchitis, COPD, Depression, GERD, HTN, Hypercholesterolemia, Post Traumatic Stress Disorder, Seizures, TIA Surgical History: Back Surgery - [facility] Procedures ALCOHOL DETOXIFICATION (12/13/14) BILAT ENDOS OCC TUBE NEC (12/20/97) C.A.T. SCAN OF HEAD (03/31/07) CLOSED ENDOSCOPIC BIOPSY OF LARGE INTESTINE (05/10/14) DETOXIFICATION SERVICES FOR SUBSTANCE ABUSE TREATMENT (01/11/18) DPT ADMINISTRATION (07/06/14) DRAINAGE OF RIGHT KNEE JOINT, PERCUTANEOUS APPROACH, DIAGN (12/08/15) DX ULTRASOUND-DIGESTIVE (04/10/15) ESOPHAGOGASTRODUODENOSCOPY [EGD] W/CLOSED BIOPSY (04/10/15) GROUP PRODUCTION MECHANIC TIN CANS FOR SUBSTANCE ABUSE TREATMENT, PSYCHOEDUCATION (06/12/17) GROUP PSYCHOTHERAPY (06/12/17) IMMOBILIZ/WOUND ATTN NEC (04/28/14) INCIS VULVA/PERINEUM NEC (04/28/14) INDIV PRODUCTION MECHANIC TIN CANS FOR SUBSTANCE ABUSE TREATMENT, PSYCHOEDUCATION (10/19/16) INDIV PSYCHOTHERAPY FOR SUBSTANCE ABUSE TREATMENT, SUPPORT (01/11/18) INDIV PSYCHOTHERAPY FOR SUBSTANCE ABUSE, COGNITIV BEHAVIORAL (01/11/18) INDIV PSYCHOTHERAPY FOR SUBSTANCE ABUSE, PSYCHOEDUCATION (01/11/18) INDIVID PSYCHOTHERAP NEC (08/07/14) INDIVIDUAL PSYCHOTHERAPY, COGNITIVE-BEHAVIORAL (10/19/16) INDIVIDUAL PSYCHOTHERAPY, SUPPORTIVE (06/12/17) INJECT/INFUSE ELECTROLYT (06/11/14) INJECT/INFUSE NEC (11/14/14) INSERT INDWELLING CATH (05/07/14) INTRODUCE OF OTH THERAP SUBST INTO RESP TRACT, VIA OPENING (03/19/17) MEDICATION MANAGEMENT (06/12/17) MEDS MGMT FOR SUBSTANCE ABUSE TREATMENT, OTH REPL MED (06/12/17) NEBULIZER THERAPY (12/13/14) OTHER GROUP THERAPY (08/07/14) PHARMACOTHERAPY FOR SUBSTANCE ABUSE, OTH REPLACE MED (01/11/18) PSYCHIA INTERV/EVAL NEC (11/14/14) PSYCHIAT DRUG THERAP NEC (05/22/14) VENOUS PUNCTURE NEC (08/02/14) Family History: States: No Known Family Hx - Social History Hx Tobacco Use: Yes Hx Alcohol Use: Yes Hx Substance Use: Yes - Immunization History Hx Tetanus Toxoid Vaccination: No Hx Influenza Vaccination: No Hx Pneumococcal Vaccination: No Review Of Systems Constitutional: Negative for: Fever, Chills Respiratory: Negative for: Shortness of Breath Gastrointestinal: Negative for: Nausea, Vomiting, Abdominal Pain Psych: Negative for: Suicidal ideation, Withdrawal Physical Exam - Physical Exam Appears: Non-toxic, No Acute Distress Skin: Normal Color, Warm, Dry Head: Atraumatic, Normacephalic Eye(s): bilateral: Normal Inspection Oral Mucosa: Moist Neck: Normal ROM Chest: Symmetrical Cardiovascular: Rhythm Regular, No Murmur Respiratory: Normal Breath Sounds, No Rales, No Rhonchi, No Wheezing Extremity: Bilateral: Atraumatic, Normal Color And Temperature, Normal ROM Neurological/Psych: Oriented x3, Normal Speech Gait: Steady ED Course And Treatment - Laboratory Results Result Diagrams: 03/07/18 10:20 03/07/18 10:20 Lab Interpretation: No Acute Changes O2 Sat by Pulse Oximetry: 100 (RA) Pulse Ox Interpretation: Normal Medical Decision Making Medical Decision Making: Impression: Substance detox Orders: -Labs -Nicoderm Crisis requested and with patient at the moment. Patient admitted to hospital due to severe use of opiates. Disposition - Disposition Disposition: HOSPITALIZED Disposition Time: 11:20 Condition: STABLE - POA Present On Arrival: None - Clinical Impression Clinical Impression: Polysubstance dependence - PA / [employer] UTILITY OPERATOR / Resident Statement MD/DO has reviewed & agrees with the documentation as recorded. - Scribe Statement The provider has reviewed the documentation as recorded by the Scribe Leti Junior All medical record entries made by the Melissaiboscar were at my direction and personally dictated by me. I have reviewed the chart and agree that the record accurately reflects my personal performance of the history, physical exam, medical decision making, and the department course for this patient. I have also personally directed, reviewed, and agree with the discharge instructions and disposition. Decision To Admit - Pt Status Changed To: Hospital Disposition Of: Inpatient - Admit Certification Admit to Inpatient:: After my assessment, the patient will require hospitalization for at least two midnights. This is because of the severity of symptoms shown, intensity of services needed, and/or the medical risk in this patient being treated as an outpatient. - InPatient: Physician Admission Certification: I certify that this patient requires 2 or more midnights of care for the following reason:: Patient with polysubstance use and demonstrates dependence and now requesting detox. Labs viewed and medically cleared for admission. Patient accepted to detox service and would benefit from inpatient detox - . Bed Request Type: Detox Admitting Physician: Junaid Quiroz Patient Diagnosis: Polysubstance dependence
[2018-03-07 10:24] LABS: HCG,QUALITATIVE URINE NEGATIVE (NEGATIVE)
[2018-03-07 10:27] LABS: BASO # 0.1 K/uL (0.0-0.2); BASO % 1.1 % (0.0-2.0); EOS # 0.2 K/uL (0.0-0.7); EOS % 3.5 % (0.0-4.0); HEMOGLOBIN 12.7 g/dL (11.0-16.0); LYMPH # 3.2 K/uL (1.0-4.3); LYMPH % 58.6 % (20.0-40.0); MEAN CELL VOLUME 91.4 fL (81.0-99.0); MEAN CORPUSCULAR HEMOGLOBIN 31.3 pg (27.0-31.0); MEAN CORPUSCULAR HGB CONC 34.3 g/dL (33.0-37.0); MEAN PLATELET VOLUME 8.8 fL (7.2-11.7); MONO # 0.4 K/uL (0.0-0.8); MONO % 6.6 % (0.0-10.0); NEUT # 1.6 K/uL (1.8-7.0); NEUT % 30.2 % (50.0-75.0); NRBC % 0.2 % (0.0-2.0); RBC 4.07 Mil/uL (3.80-5.20); RED CELL DISTRIBUTION WIDTH 15.7 % (11.5-14.5); WHITE BLOOD COUNT 5.4 K/uL (4.8-10.8)
[2018-03-07 10:28] LABS: SQUAMOUS EPITHIAL 4 /hpf (0-5); URINE BILIRUBIN NEGATIVE (NEGATIVE); URINE BLOOD NEGATIVE (NEGATIVE); URINE CLARITY Hazy (Clear); URINE COLOR Amber (YELLOW); URINE GLUCOSE (UA) NORMAL (Normal); URINE LEUKOCYTE ESTERASE NEG Leu/uL (Negative); URINE PROTEIN NEGATIVE (NEGATIVE); URINE UROBILINOGEN NORMAL mg/dL (0.2-1.0)
[2018-03-07 10:45] LABS: BARBITURATES, UR NEGATIVE (NEGATIVE); BENZODIAZEPINES, UR NEGATIVE (NEGATIVE); PHENCYCLIDINE, UR NEGATIVE (NEGATIVE)
[2018-03-07 10:46] LABS: ALB/GLOB RATIO 1.5 (1.0-2.1); ALBUMIN 4.9 g/dL (3.5-5.0); CALCIUM 9.6 mg/dl (8.6-10.4); GFR AFRICAN-AMERICAN > 60; GFR NON-AFRICAN AMERICAN > 60
[2018-03-07 10:55] LABS: ALT/SGPT 61 U/L (9-52); AST/SGOT 72 U/L (14-36); BLOOD UREA NITROGEN 18 mg/dL (7-17)
[2018-03-07 11:16] LABS: OPIATES, UR POSITIVE (NEGATIVE)
--- NOTE | 2018-03-07 11:56 | PCM.BM ---
<Dennise Hillman - Last Filed: 03/07/18 11:55> Treatment Plan Problems - Problems identified on initial assessmt potential for opiate withdrawals Date Initiated: 03/07/18 Assessment reference: NA Status: Active potential for alcohol withdrawals Date Initiated: 03/07/18 Assessment reference: NA Status: Active Treatment assets and liabiliti Patient Assests: adapts well, cooperative, insightful, self-reliant, ADL independent, negotiates basic needs, cognitively intact Patient Liabilities: financial problems, substance abuse, medical problems, other - Milieu Protocol Maintain good personal hygiene: daily Encourage regular showers, daily Remind patient to perform daily oral care, daily Assist patient to perform ADL's Conduct patient checks and document Observation sheet: Q15 minutes Maintain personal safety: every shift Educate patient to report safety concerns to staff, every shift Monitor environment for contraband/sharps Medication safety: Monitor for expected outcome, potential side effects: every shift, Assess barriers to learning: every shift, Assess readiness for medication education: every shift <Junaid Quiroz - Last Filed: 03/08/18 20:40> - Diagnosis (1) Opioid use disorder, severe, dependence Status: Acute Interventions: 03/08/18 20:40 * Assess 7x/week regarding severity of withdrawal * Educate regarding risks, benefits, side effects and alternatives of medications * Use Motivational Interviewing for abstinence * Use CBT for relapse prevention * Medication management for withdrawal symptoms * Encourage medication assisted treatment (2) Cocaine use disorder, severe, dependence Status: Acute Interventions: 03/08/18 20:40 * Assess 7x/week regarding severity of withdrawal * Educate regarding risks, benefits, side effects and alternatives of medications * Use Motivational Interviewing for abstinence * Use CBT for relapse prevention * Medication management for withdrawal symptoms * Encourage medication assisted treatment (3) Alcohol use disorder, severe, dependence Status: Acute Interventions: 03/08/18 20:41 * Assess 7x/week regarding severity of withdrawal * Educate regarding risks, benefits, side effects and alternatives of medications * Use Motivational Interviewing for abstinence * Use CBT for relapse prevention * Medication management for withdrawal symptoms * Encourage medication assisted treatment <Lyndsay Caceres - Last Filed: 03/10/18 08:39> Family Contact Family involvement: Famliy/SO not involved - Goals for Treatment Patient goals for treatment: Complete detox and apply for sober living facility. Discharge/Continuing Care - Education Needs Education Needs: Patient Medication, Patient Diagnosis/Disease Process, Patient Coping Skills, Patient Anger Management skills, Patient Placement options, Patient Community resources - Discharge Discharge Criteria: Ability to care for self, No longer exhibiting s/s of withdrawal, Reduction of target symptoms Discharge to:: Substance Abuse Rehab - Treatment Team Participation Patient/Family/SO Statement: 03/10/18 08:39 "I wanna see if I can get back into real house." Discussed with Family/SO: No Was Patient/Family/SO present at Treatment Team Meeting: Yes
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
[2018-03-08] MEDS ORDERED: Aluminum Hydroxide/Magnesium Hydroxide Susp (30 mL) PO PRN (02:50)
[2018-03-08] MEDS ORDERED: Buprenorphine Hydrochloride 2 mg SL ONE ×2 (09:27→10:28)
[2018-03-08] MEDS: Multiple Vitamins Tab PO SCH (09:39)
--- NOTE | 2018-03-08 20:35 | PCM.PYCHPN ---
Psychiatric Progress Note - Psychiatric Progress Note Patient Chief Complaint: I'm feeling little better. Problems Identified/Issues Discussed: Patient seen, chart reviewed, case discussed with the staff. Issues related to illness and treatment were discussed with the patient and staff. Reported compliant with treatment with no adverse affects. Tolerating treatment very well. Risk and benefits of medications were discussed with the patient patient understood and agreed. Reported feeling little better. Calm and cooperative, speech soft with good eye contact. Awake alert oriented 3, denied any delusions, any auditory of visual hallucinations, no suicidal ideations or homicidal ideations at the time of evaluation. Aftercare discussed with the patient. Medical Problems: Seizure disorder Hepatitis C Hypertension COPD Diagnostic Results: Reviewed DSM 5 Symptoms Update: Improving with treatment Medication Change: No Medical Record Reviewed: Yes Mental Status Examination - Cognitive Function Orientation: Person, Place, Situation, Time Memory: Intact Attention: WNL Concentration: WNL Association: WNL Fund of Knowledge: [facility] Decription of patient's judgement and insights: Fair - Mood Mood: Anxious - Affect Affect: Other - Speech Speech: Appropriate (Appropriate) - Formal Thought Process Formal Thought Process: No Impairment Psychotic Thoughts and Behaviors: None - Suicidal Ideation Suicidal Ideation: No - Homicidal Ideation Homicidal Ideation: No Goal/Treatment Plan - Goal/Treatment Plan Need for Continued Stay: Remain at risks for inpatient hospitalization, Discharge may exacerbated symptoms, Severe functional impairment Progress Toward Problem(s) and Goals/Treatment Plan: Patient education. Supportive therapy. CBT for relapse prevention. TN for abstinence. Continue treatment as before. Estimated Date of D/C: 03/11/18 - Smoking Cessation Smoking Cessation Initiated: Yes
[2018-03-09] MEDS: Multiple Vitamins Tab PO SCH (09:30)
[2018-03-09] MEDS: Buprenorphine Hydrochloride 2 mg SL SCH (09:31)
--- NOTE | 2018-03-09 12:06 | PCM.PYCHPN ---
Psychiatric Progress Note - Psychiatric Progress Note Patient seen today, length of contact: 16 min Patient Chief Complaint: "back pain" Problems Identified/Issues Discussed: The pt is seen, chart reviewed, case discussed with staff. Support and psychoeducation given, CBT and ND used briefly No new symptoms reported, improving slowly and needs more time No SEs from medications, risks discussed. After care discussed Medication Change: Yes (detox changes daily) Medical Record Reviewed: Yes Mental Status Examination - Cognitive Function Orientation: Person, Place, Situation, Time Memory: Intact Attention: WNL Concentration: WNL Association: WNL Fund of Knowledge: WNL - Mood Mood: Anxious - Affect Affect: Constricted - Speech Speech: Appropriate - Formal Thought Process Formal Thought Process: No Impairment - Suicidal Ideation Suicidal Ideation: No - Homicidal Ideation Homicidal Ideation: No Goal/Treatment Plan - Goal/Treatment Plan Need for Continued Stay: Discharge may exacerbated symptoms, Severe functional impairment Progress Toward Problem(s) and Goals/Treatment Plan: Continue medications Support and psychoeducation daily Attend groups and activities daily After care planning by ETELVINA Estimated Date of D/C: 03/11/18
[2018-03-09 14:39] VITALS: RESP 18
[2018-03-10] MEDS: Buprenorphine Hydrochloride 2 mg SL SCH (09:27)
[2018-03-10] MEDS: Multiple Vitamins Tab PO SCH (09:27)
--- NOTE | 2018-03-10 17:02 | PCM.PYCHPN ---
Psychiatric Progress Note - Psychiatric Progress Note Patient seen today, length of contact: 16 min Patient Chief Complaint: "Still not well" Problems Identified/Issues Discussed: The pt is seen, chart reviewed, case discussed with staff. The pt is compliant with medications and reports no side-effects. Symptoms are improving but needs more time to stabilize. Pt attends groups and activities. Support given, psycho-education provided. After care discussed. Back-pain discussed - nothing neurological going on, meds to continue and will see PCP if gets worse Medication Change: Yes (detox changes daily) Medical Record Reviewed: Yes Mental Status Examination - Cognitive Function Orientation: Person, Place, Situation, Time Memory: Intact Attention: WNL Concentration: WNL Association: WNL Fund of Knowledge: WNL - Mood Mood: Anxious - Affect Affect: Constricted - Speech Speech: Appropriate - Formal Thought Process Formal Thought Process: No Impairment - Suicidal Ideation Suicidal Ideation: No - Homicidal Ideation Homicidal Ideation: No Goal/Treatment Plan - Goal/Treatment Plan Need for Continued Stay: Discharge may exacerbated symptoms, Severe functional impairment Progress Toward Problem(s) and Goals/Treatment Plan: Continue medications Support and psychoeducation daily Attend groups and activities daily After care planning by ETELVINA Estimated Date of D/C: 03/12/18
[2018-03-11] MEDS: Multiple Vitamins Tab PO SCH (09:15)
[2018-03-11] MEDS: Buprenorphine Hydrochloride 2 mg SL SCH (09:15)
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
[2018-03-12] MEDS: Buprenorphine Hydrochloride 2 mg SL SCH (09:17)
[2018-03-12] MEDS: Multiple Vitamins Tab PO SCH (09:17)
--- NOTE | 2018-03-13 00:02 | PCM.PYCHPN ---
Psychiatric Progress Note - Psychiatric Progress Note Patient seen today, length of contact: 16 min Patient Chief Complaint: "So so" Problems Identified/Issues Discussed: The pt is seen, chart reviewed, case discussed with staff. Support given, CBT and MN used briefly Some new symptoms reported, still has some withdrawal but also improving slowly and needs more time No SEs from medications, risks discussed. After care discussed - waiting to hear from [facility] Medication Change: Yes (detox changes daily) Medical Record Reviewed: Yes Mental Status Examination - Cognitive Function Orientation: Person, Place, Situation, Time Memory: Intact Attention: WNL Concentration: WNL Association: WNL Fund of Knowledge: WN - Mood Mood: Anxious - Affect Affect: Constricted - Speech Speech: Appropriate - Formal Thought Process Formal Thought Process: No Impairment - Suicidal Ideation Suicidal Ideation: No - Homicidal Ideation Homicidal Ideation: No Goal/Treatment Plan - Goal/Treatment Plan Need for Continued Stay: Discharge may exacerbated symptoms, Severe functional impairment Progress Toward Problem(s) and Goals/Treatment Plan: Continue medications Support and psychoeducation daily Attend groups and activities daily After care planning by counselors - they are calling other places now. Estimated Date of D/C: 03/13/18
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
[2018-03-13] MEDS: Multiple Vitamins Tab PO SCH (09:23)
[2018-03-13] MEDS ORDERED: Buprenorphine Hydrochloride 2 mg SL ONE (10:00)
[2018-03-13 10:12] VITALS: BP 109/76; PULSE 95; TEMP 98.9; O2SAT 100
== END 2018-03-13 10:00 | disposition home or self-care (01) | DRG 744 ==
LOC: C.ER 08:36 → C.9E 11:23 → C.7D 11:36
PROC: HZ2ZZZZ Detoxification Services for Substance Abuse Treatment (ICD-10-PCS; principal; 2018-03-07)
PROC: HZ59ZZZ Individual Psychotherapy for Substance Abuse Treatment, Supportive (ICD-10-PCS; 2018-03-07)
PROC: HZ46ZZZ Group Counseling for Substance Abuse Treatment, Psychoeducation (ICD-10-PCS; 2018-03-07)
PROC: GZ3ZZZZ Medication Management (ICD-10-PCS; 2018-03-07)
PROC: HZ90ZZZ Pharmacotherapy for Substance Abuse Treatment, Nicotine Replacement (ICD-10-PCS; 2018-03-07)
DX: F11.20 Opioid dependence, uncomplicated (principal); F14.20 Cocaine dependence, uncomplicated; F10.20 Alcohol dependence, uncomplicated; F31.9 Bipolar disorder, unspecified; F43.10 Post-traumatic stress disorder, unspecified; F17.210 Nicotine dependence, cigarettes, uncomplicated; B19.20 Unspecified viral hepatitis C without hepatic coma; J44.9 Chronic obstructive pulmonary disease, unspecified; G40.909 Epilepsy, unspecified, not intractable, without status epilepticus; I10 Essential (primary) hypertension; E78.00 Pure hypercholesterolemia, unspecified; K21.9 Gastro-esophageal reflux disease without esophagitis; Z86.73 Personal history of transient ischemic attack (TIA), and cerebral infarction without residual deficits

== ENCOUNTER 2018-10-23 14:18 | Emergency (ER) | payer MEDICAID, OTHER ==
[2018-10-23 14:18] VITALS: BMI 31.7
[2018-10-23 14:43] VITALS: O2SAT 100
--- NOTE | 2018-10-23 14:46 | C.PDOC ---
History Of Present Illness 43 year old female presents to ED s/p breakthrough seizure prior to arrival. Patient states she has been noncompliant with her medication for the past week. She states she last drank alcohol and used heroin yesterday. Patient's past medical history includes asthma, COPD, chronic back pain s/p lumbar laminectomy, bipolar disorder, seizures, narcotic OD, and substance abuse. She is currently asymptomatic. SP BREAKTHROUGH SZ ROD WELDER. PS NONCOMPLIANT W MEDS X 1 WEEK. LAST ETOH, HEROIN YESTERDAY. CURRENTLY ASYMPT. past medical history includes asthma, COPD, chronic back pain s/p lumbar laminectomy, bipolar disorder, seizures, NARCOTIC OD and substance abuse EXAM NAD HEENT ATRAUM NEURO INTACT NO DEF PSYCH CALM COOPERATIVE NO ACUTE INTOX REMAINDER NEG Time Seen by Provider: 10/23/18 14:43 Chief Complaint (Nursing): Seizure History Per: Patient History/Exam Limitations: no limitations Recent Seizure Activity Began: Just Before Arrival Number Of Seizures: One Precipitating Factor(s): Missed Dose Of Anti-seizure Medication Past Medical History Reviewed: Historical Data, Nursing Documentation, Vital Signs Vital Signs: Last Vital Signs Temp 99.3 F 10/23/18 14:27 Pulse 85 10/23/18 14:27 Resp 20 10/23/18 14:27 BP 165/100 H 10/23/18 14:27 Pulse Ox 100 10/23/18 14:27 - Medical History PMH: Anemia, Anxiety, Asthma, Back Problems (SPINAL SURGERY IN 2005), Bipolar Disorder, Bronchitis, COPD, Depression, GERD, HTN, Hypercholesterolemia, Post Traumatic Stress Disorder, Seizures, TIA Denies: Diabetes, Hepatitis, HIV, Chronic Kidney Disease, Sexually Transmitted Disease Surgical History: Back Surgery - [facility] Procedures ALCOHOL DETOXIFICATION (12/13/14) BILAT ENDOS OCC TUBE NEC (12/20/97) C.A.T. SCAN OF HEAD (03/31/07) CLOSED ENDOSCOPIC BIOPSY OF LARGE INTESTINE (05/10/14) DETOXIFICATION SERVICES FOR SUBSTANCE ABUSE TREATMENT (03/07/18) DPT ADMINISTRATION (07/06/14) DRAINAGE OF RIGHT KNEE JOINT, PERCUTANEOUS APPROACH, DIAGN (12/08/15) DX ULTRASOUND-DIGESTIVE (04/10/15) ESOPHAGOGASTRODUODENOSCOPY [EGD] W/CLOSED BIOPSY (04/10/15) GROUP DEBUBBLIZER FOR SUBSTANCE ABUSE TREATMENT, PSYCHOEDUCATION (03/07/18) GROUP PSYCHOTHERAPY (06/12/17) IMMOBILIZ/WOUND ATTN NEC (04/28/14) INCIS VULVA/PERINEUM NEC (04/28/14) INDIV DEBUBBLIZER FOR SUBSTANCE ABUSE TREATMENT, PSYCHOEDUCATION (10/19/16) INDIV PSYCHOTHERAPY FOR SUBSTANCE ABUSE TREATMENT, SUPPORT (03/07/18) INDIV PSYCHOTHERAPY FOR SUBSTANCE ABUSE, COGNITIV BEHAVIORAL (01/11/18) INDIV PSYCHOTHERAPY FOR SUBSTANCE ABUSE, PSYCHOEDUCATION (01/11/18) INDIVID PSYCHOTHERAP NEC (08/07/14) INDIVIDUAL PSYCHOTHERAPY, COGNITIVE-BEHAVIORAL (10/19/16) INDIVIDUAL PSYCHOTHERAPY, SUPPORTIVE (06/12/17) INJECT/INFUSE ELECTROLYT (06/11/14) INJECT/INFUSE NEC (11/14/14) INSERT INDWELLING CATH (05/07/14) INTRODUCE OF OTH THERAP SUBST INTO RESP TRACT, VIA OPENING (03/19/17) MEDICATION MANAGEMENT (03/07/18) MEDS MGMT FOR SUBSTANCE ABUSE TREATMENT, OTH REPL MED (06/12/17) NEBULIZER THERAPY (12/13/14) OTHER GROUP THERAPY (08/07/14) PHARMACOTHERAPY FOR SUBSTANCE ABUSE, NICOTINE REPLACE (03/07/18) PHARMACOTHERAPY FOR SUBSTANCE ABUSE, OTH REPLACE MED (01/11/18) PSYCHIA INTERV/EVAL NEC (11/14/14) PSYCHIAT DRUG THERAP NEC (05/22/14) VENOUS PUNCTURE NEC (08/02/14) Family History: States: Unknown Family Hx - Social History Hx Tobacco Use: Yes Hx Alcohol Use: Yes Hx Substance Use: Yes - Immunization History Hx Tetanus Toxoid Vaccination: No Hx Influenza Vaccination: No Hx Pneumococcal Vaccination: No Review Of Systems Constitutional: Negative for: Fever, Chills, Weakness Eyes: Negative for: Vision Change Gastrointestinal: Negative for: Nausea, Vomiting Musculoskeletal: Negative for: Back Pain Neurological: Positive for: Seizures. Negative for: Weakness, Numbness, Dizziness Physical Exam - Physical Exam Appears: Well, Non-toxic, No Acute Distress Skin: Normal Color, Warm, Dry Head: Atraumatic, Normacephalic Neck: Normal ROM, Supple Chest: Symmetrical, No Deformity Cardiovascular: Rhythm Regular, No Murmur Respiratory: No Accessory Muscle Use Extremity: Capillary Refill (<2 seconds) Extremity: Bilateral: Atraumatic, Normal Color And Temperature Pulses: Left Radial: Normal, Right Radial: Normal Neurological/Psych: Oriented x3, Normal Speech, Normal Cognition, Normal Motor, Normal Sensation, Other (calm,cooperative, no acute intoxication) ED Course And Treatment O2 Sat by Pulse Oximetry: 100 (RA) Progress Note: Patient given Catapres PO, Keppra PO, Motrin PO, and Zofran PO. Progress - Re-Evaluation Re-evaluation Note: 10/23/18 15:00 NO DETOX BEDS AVIAL. NO SI/SA - Data Reviewed Data Reviewed: Old records Disposition Counseled Patient/Family Regarding: Diagnosis, Need For Followup, Rx Given - Disposition Referrals: PRESCREEN,DETOX [Other] Disposition: HOME/ ROUTINE Disposition Time: 15:23 Condition: IMPROVED Prescriptions: levETIRAcetam [Keppra] 500 mg PO BID #28 tab Instructions: Seizures, Adult (DC), Polysubstance Abuse (DC) Forms: [facility] (Cuban) - Clinical Impression Clinical Impression: Opiate abuse, continuous, Breakthrough seizure - Scribe Statement The provider has reviewed the documentation as recorded by the Scribe (Juliette Nolasco) All medical record entries made by the Scribe were at my direction and personally dictated by me. I have reviewed the chart and agree that the record accurately reflects my personal performance of the history, physical exam, medical decision making, and the department course for this patient. I have also personally directed, reviewed, and agree with the discharge instructions and disposition.
[2018-10-23 15:43] VITALS: TEMP 98.5
[2018-10-23 16:13] VITALS: BP 161/100; PULSE 80; RESP 18
== END 2018-10-23 16:49 | disposition home or self-care (01) ==
LOC: C.ER 14:18
DX: R56.9 Unspecified convulsions (principal); F11.10 Opioid abuse, uncomplicated; Z91.14 Patient's other noncompliance with medication regimen

== ENCOUNTER 2018-11-30 08:46 | Inpatient (IN) | payer MEDICAID, OTHER ==
[2018-11-30 08:54] VITALS: BMI 31.4
[2018-11-30 09:29] LABS: BASO # 0.1 K/uL (0.0-0.2); BASO % 0.8 % (0.0-2.0); EOS # 0.2 K/uL (0.0-0.7); EOS % 1.7 % (0.0-4.0); HEMOGLOBIN 13.8 g/dL (11.0-16.0); LYMPH # 3.1 K/uL (1.0-4.3); LYMPH % 31.5 % (20.0-40.0); MEAN CORPUSCULAR HEMOGLOBIN 32.3 pg (27.0-31.0); MEAN CORPUSCULAR HGB CONC 34.3 g/dL (33.0-37.0); MEAN PLATELET VOLUME 9.2 fL (7.2-11.7); MONO # 0.7 K/uL (0.0-0.8); MONO % 7.5 % (0.0-10.0); NEUT # 5.8 K/uL (1.8-7.0); NEUT % 58.5 % (50.0-75.0); NRBC % 0.2 % (0.0-2.0); RBC 4.27 Mil/uL (3.80-5.20); RED CELL DISTRIBUTION WIDTH 14.7 % (11.5-14.5)
[2018-11-30 09:31] LABS: MEAN CELL VOLUME 94.1 fL (81.0-99.0)
[2018-11-30 09:37] LABS: HCG,QUALITATIVE URINE NEGATIVE (NEGATIVE)
[2018-11-30 10:09] LABS: ALB/GLOB RATIO 1.6 (1.0-2.1); ALBUMIN 4.4 g/dL (3.5-5.0); ALT/SGPT 29 U/L (9-52); AST/SGOT 52 U/L (14-36); BLOOD UREA NITROGEN 16 mg/dL (7-17); CALCIUM 9.3 mg/dl (8.6-10.4); GFR NON-AFRICAN AMERICAN > 60
[2018-11-30 10:12] LABS: BARBITURATES, UR NEGATIVE (NEGATIVE); PHENCYCLIDINE, UR NEGATIVE (NEGATIVE)
[2018-11-30 10:34] LABS: BENZODIAZEPINES, UR POSITIVE (NEGATIVE); OPIATES, UR POSITIVE (NEGATIVE)
[2018-11-30 11:29] LABS: SQUAMOUS EPITHIAL 1 /hpf (0-5); URINE BACTERIA RARE (<OCC); URINE BILIRUBIN NEGATIVE (NEGATIVE); URINE BLOOD NEGATIVE (NEGATIVE); URINE CLARITY Hazy (Clear); URINE COLOR Amber (YELLOW); URINE GLUCOSE (UA) NORMAL (Normal); URINE LEUKOCYTE ESTERASE NEG Leu/uL (Negative); URINE PROTEIN NEGATIVE (NEGATIVE)
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
[2018-11-30] MEDS ORDERED: Aluminum Hydroxide/Magnesium Hydroxide Susp (30 mL) PO PRN (13:07)
--- NOTE | 2018-11-30 14:27 | PCM.BM ---
<Dennise Hillman - Last Filed: 11/30/18 14:24> Treatment Plan Problems - Problems identified on initial assessmt Defensive Coping Date Initiated: 11/30/18 Assessment reference: NA Status: Active Chronic Low Self Esteem Date Initiated: 11/30/18 Assessment reference: NA Status: Active Low Motivation to Change Date Initiated: 11/30/18 Assessment reference: NA Status: Active Treatment assets and liabiliti Patient Assests: adapts well, cooperative, insightful, self-reliant, ADL independent, negotiates basic needs, cognitively intact Patient Liabilities: substance abuse - Milieu Protocol Maintain good personal hygiene: daily Encourage regular showers, daily Remind patient to perform daily oral care, daily Assist patient to perform ADL's Conduct patient checks and document Observation sheet: Q15 minutes Maintain personal safety: every shift Educate patient to report safety concerns to staff, every shift Monitor environment for contraband/sharps Medication safety: Monitor for expected outcome, potential side effects: every shift, Assess barriers to learning: every shift, Assess readiness for medication education: every shift <Lyndasy Caceres - Last Filed: 12/02/18 11:31> Family Contact Family involvement: No known Family/SO - Goals for Treatment Patient goals for treatment: COMPLETE DETOX AND APPLY FOR LONG-TERM SOBER-LIVING FACILITY. Discharge/Continuing Care - Education Needs Education Needs: Patient Medication, Patient Diagnosis/Disease Process, Patient Coping Skills, Patient Anger Management skills, Patient Placement options, Patient Community resources - Discharge Discharge Criteria: Ability to care for self, No longer exhibiting s/s of withdrawal, Reduction of target symptoms Discharge to:: Substance Abuse Rehab - Treatment Team Participation Patient/Family/SO Statement: 12/02/18 11:30 "I WANNA TRY TO GET BACK INTO A SOBER LIVING PLACE LIKE REAL HOUSE BUT I DON'T KNOW IF THEY'LL TAKE ME BACK. I GOT KICKED OUT..." Discussed with Family/SO: No Was Patient/Family/SO present at Treatment Team Meeting: Yes
--- NOTE | 2018-11-30 14:37 | C.PDOC ---
History Of Present Illness 43 y/o female presents to the ER requesting detox from ETOH, heroin, and cocaine. Patient states that her last use was yesterday. Patient is complaining of mild body itching secondary to heroin withdrawal. Denies having suicidal idea tion, homicidal ideation, fever,chills, CP,SOB, nausea, and vomiting. Chief Complaint (Nursing): Substance Abuse History Per: Patient History/Exam Limitations: no limitations Onset/Duration Of Symptoms: Hrs Current Symptoms Are (Timing): Still Present Severity: Moderate Past Medical History Reviewed: Historical Data, Nursing Documentation, Vital Signs Vital Signs: Last Vital Signs Temp 98.4 F 11/30/18 13:02 Pulse 71 11/30/18 13:02 Resp 18 11/30/18 08:53 BP 100/61 11/30/18 13:02 Pulse Ox 100 11/30/18 13:02 - Medical History PMH: Anemia, Anxiety, Asthma, Back Problems (SPINAL SURGERY IN 2005), Bipolar Disorder, Bronchitis, COPD, Depression, GERD, HTN, Hypercholesterolemia, Post Traumatic Stress Disorder, Seizures, TIA Denies: Diabetes, Hepatitis, HIV, Chronic Kidney Disease, Sexually Transmitted Disease Surgical History: Back Surgery (lumbar surgery) - [facility] Procedures ALCOHOL DETOXIFICATION (12/13/14) BILAT ENDOS OCC TUBE NEC (12/20/97) C.A.T. SCAN OF HEAD (03/31/07) CLOSED ENDOSCOPIC BIOPSY OF LARGE INTESTINE (05/10/14) DETOXIFICATION SERVICES FOR SUBSTANCE ABUSE TREATMENT (03/07/18) DPT ADMINISTRATION (07/06/14) DRAINAGE OF RIGHT KNEE JOINT, PERCUTANEOUS APPROACH, DIAGN (12/08/15) DX ULTRASOUND-DIGESTIVE (04/10/15) ESOPHAGOGASTRODUODENOSCOPY [EGD] W/CLOSED BIOPSY (04/10/15) GROUP SILVERING DEPARTMENT SUPERVISOR FOR SUBSTANCE ABUSE TREATMENT, PSYCHOEDUCATION (03/07/18) GROUP PSYCHOTHERAPY (06/12/17) IMMOBILIZ/WOUND ATTN NEC (04/28/14) INCIS VULVA/PERINEUM NEC (04/28/14) INDIV SILVERING DEPARTMENT SUPERVISOR FOR SUBSTANCE ABUSE TREATMENT, PSYCHOEDUCATION (10/19/16) INDIV PSYCHOTHERAPY FOR SUBSTANCE ABUSE TREATMENT, SUPPORT (03/07/18) INDIV PSYCHOTHERAPY FOR SUBSTANCE ABUSE, COGNITIV BEHAVIORAL (01/11/18) INDIV PSYCHOTHERAPY FOR SUBSTANCE ABUSE, PSYCHOEDUCATION (01/11/18) INDIVID PSYCHOTHERAP NEC (08/07/14) INDIVIDUAL PSYCHOTHERAPY, COGNITIVE-BEHAVIORAL (10/19/16) INDIVIDUAL PSYCHOTHERAPY, SUPPORTIVE (06/12/17) INJECT/INFUSE ELECTROLYT (06/11/14) INJECT/INFUSE NEC (11/14/14) INSERT INDWELLING CATH (05/07/14) INTRODUCE OF OTH THERAP SUBST INTO RESP TRACT, VIA OPENING (03/19/17) MEDICATION MANAGEMENT (03/07/18) MEDS MGMT FOR SUBSTANCE ABUSE TREATMENT, OTH REPL MED (06/12/17) NEBULIZER THERAPY (12/13/14) OTHER GROUP THERAPY (08/07/14) PHARMACOTHERAPY FOR SUBSTANCE ABUSE, NICOTINE REPLACE (03/07/18) PHARMACOTHERAPY FOR SUBSTANCE ABUSE, OTH REPLACE MED (01/11/18) PSYCHIA INTERV/EVAL NEC (11/14/14) PSYCHIAT DRUG THERAP NEC (05/22/14) VENOUS PUNCTURE NEC (08/02/14) Family History: States: No Known Family Hx - Social History Hx Tobacco Use: Yes Hx Alcohol Use: Yes Hx Substance Use: Yes - Immunization History Hx Tetanus Toxoid Vaccination: No Hx Influenza Vaccination: No Hx Pneumococcal Vaccination: No Review Of Systems Except As Marked, All Systems Reviewed And Found Negative. Constitutional: Negative for: Fever, Chills Skin: Positive for: Other (body itching) Psych: Negative for: Suicidal ideation Physical Exam - Physical Exam Appears: Non-toxic, No Acute Distress Skin: Normal Color, Warm, Dry Head: Atraumatic, Normacephalic Eye(s): bilateral: Normal Inspection Nose: Normal Oral Mucosa: Moist Neck: Supple Chest: Symmetrical Cardiovascular: Rhythm Regular Respiratory: Normal Breath Sounds, No Rales, No Rhonchi, No Wheezing Gastrointestinal/Abdominal: Normal Exam, Soft, No Tenderness, No Guarding, No Rebound Neurological/Psych: Oriented x3, Normal Speech ED Course And Treatment - Laboratory Results Result Diagrams: 11/30/18 09:23 11/30/18 09:23 Lab Results: Total Bilirubin 0.5 mg/dL (0.2-1.3) 11/30/18 09:23 AST 52 U/L (14-36) H 11/30/18 09:23 ALT 29 U/L (9-52) 11/30/18 09:23 Alkaline Phosphatase 78 U/L (38-126) 11/30/18 09:23 Total Protein 7.1 g/dL (6.3-8.3) 11/30/18 09:23 Albumin 4.4 g/dL (3.5-5.0) 11/30/18 09:23 Globulin 2.7 gm/dL (2.2-3.9) 11/30/18 09:23 Albumin/Globulin Ratio 1.6 (1.0-2.1) 11/30/18 09:23 Urine Color Vivienne (YELLOW) 11/30/18 09:23 Urine Clarity Hazy (Clear) 11/30/18 09:23 Urine pH 5.0 (5.0-8.0) 11/30/18 09:23 Ur Specific [place] 1.021 (1.003-1.030) 11/30/18 09:23 Urine Protein Negative mg/dL (NEGATIVE) 11/30/18 09:23 Urine Glucose (UA) Normal mg/dL (Normal) 11/30/18 09:23 Urine Ketones Negative mg/dL (NEGATIVE) 11/30/18 09:23 Urine Blood Negative (NEGATIVE) 11/30/18 09:23 Urine Nitrate Negative (NEGATIVE) 11/30/18 09:23 Urine Bilirubin Negative (NEGATIVE) 11/30/18 09:23 Urine Urobilinogen 2.0 mg/dL (0.2-1.0) H 11/30/18 09:23 Ur Leukocyte Esterase Neg Destiney/uL (Negative) 11/30/18 09:23 Urine WBC (Auto) 1 /hpf (0-5) 11/30/18 09:23 Urine RBC (Auto) < 1 /hpf (0-3) 11/30/18 09:23 Ur Squamous Epith Cells 1 /hpf (0-5) 11/30/18 09:23 Urine Bacteria Rare (<OCC) 11/30/18 09:23 Urine HCG, Qual Negative (NEGATIVE) 11/30/18 09:23 Urine HCG, Qual Negative (NEGATIVE) 11/30/18 09:23 O2 Sat by Pulse Oximetry: 100 (RA) Pulse Ox Interpretation: Normal Medical Decision Making Medical Decision Making: Plan: --Labs --UA --HCG, Qual. Updates: Patient has been medically cleared. 12:40 CRISIS evaluated patient. Patient has been admitted under the service of . Disposition - Disposition Disposition: HOSPITALIZED Disposition Time: 12:00 Condition: STABLE - Clinical Impression Clinical Impression: Opioid use disorder, severe, dependence - Scribe Statement The provider has reviewed the documentation as recorded by the Melissaiboscar Porter Provider Attestation: All medical record entries made by the Melissaiboscar were at my direction and personally dictated by me. I have reviewed the chart and agree that the record accurately reflects my personal performance of the history, physical exam, medical decision making, and the department course for this patient. I have also personally directed, reviewed, and agree with the discharge instructions and disposition.
--- NOTE | 2018-12-02 14:52 | PCM.PYCHPN ---
Psychiatric Progress Note - Psychiatric Progress Note Patient seen today, length of contact: 16 min Patient Chief Complaint: "I am not well" Problems Identified/Issues Discussed: The pt is seen, chart reviewed, case is discussed with staff. The pt is compliant with medications and reports no side-effects. Symptoms are improving but needs more time to stabilize and to avoid relapse. Pt attends groups and activities. Support given, psycho-education provided. After care discussed. Medication Change: Yes (detox chnges daily) Medical Record Reviewed: Yes Mental Status Examination - Cognitive Function Orientation: Person, Place, Situation, Time Memory: Intact Attention: WNL Concentration: Poor Association: WNL Fund of Knowledge: WNL - Mood Mood: Depressed, Anxious - Affect Affect: Constricted - Speech Speech: Appropriate - Formal Thought Process Formal Thought Process: No Impairment - Suicidal Ideation Suicidal Ideation: No - Homicidal Ideation Homicidal Ideation: No Goal/Treatment Plan - Goal/Treatment Plan Need for Continued Stay: Discharge may exacerbated symptoms, Severe functional impairment Progress Toward Problem(s) and Goals/Treatment Plan: Taper with methadone Gabapentin for augmentation As needed medications All risks, benefits and alternatives of the meds discussed, and the pt agreed and understood. Attend groups and activities Supportive therapy and psychoeducation [place] for abstinence CBT for relapse prevention Encourage MAT Refer to rehab or IOP, and self-help groups Teach healthy lifestyle methods, i.e. diet, exercise, meditation Smoking cessation with [place] Nicotine patch if needed
--- NOTE | 2018-12-03 00:31 | PCM.PYCHPN ---
Psychiatric Progress Note - Psychiatric Progress Note Patient seen today, length of contact: 16 min Patient Chief Complaint: "I am not well" Problems Identified/Issues Discussed: The pt is seen, chart reviewed, case is discussed with staff. The pt is compliant with medications and reports no side-effects. Symptoms are improving but needs more time to stabilize and to avoid relapse. Pt attends groups and activities. Support given, psycho-education provided. After care discussed. Medication Change: Yes (detox chnges daily) Medical Record Reviewed: Yes Mental Status Examination - Cognitive Function Orientation: Person, Place, Situation, Time Memory: Intact Attention: WNL Concentration: Poor Association: WNL Fund of Knowledge: WNL - Mood Mood: Depressed, Anxious - Affect Affect: Constricted - Speech Speech: Appropriate - Formal Thought Process Formal Thought Process: No Impairment - Suicidal Ideation Suicidal Ideation: No - Homicidal Ideation Homicidal Ideation: No Goal/Treatment Plan - Goal/Treatment Plan Need for Continued Stay: Discharge may exacerbated symptoms, Severe functional impairment Progress Toward Problem(s) and Goals/Treatment Plan: Taper with methadone Gabapentin for augmentation As needed medications All risks, benefits and alternatives of the meds discussed, and the pt agreed and understood. Attend groups and activities Supportive therapy and psychoeducation [place] for abstinence CBT for relapse prevention Encourage MAT Refer to rehab or IOP, and self-help groups Teach healthy lifestyle methods, i.e. diet, exercise, meditation Smoking cessation with [place] Nicotine patch if needed
[2018-12-03 09:19] VITALS: O2SAT 99
--- NOTE | 2018-12-03 12:21 | PCM.PYCHPN ---
Psychiatric Progress Note - Psychiatric Progress Note Patient seen today, length of contact: 16 min Patient Chief Complaint: "I am not well" Problems Identified/Issues Discussed: The pt is seen, chart reviewed, case is discussed with staff. The pt is compliant with medications and reports no side-effects. Symptoms are improving but needs more time to stabilize and to avoid relapse. Pt attends groups and activities. Support given, psycho-education provided. After care discussed. Medication Change: Yes (detox chnges daily) Medical Record Reviewed: Yes Mental Status Examination - Cognitive Function Orientation: Person, Place, Situation, Time Memory: Intact Attention: WNL Concentration: Poor Association: WNL Fund of Knowledge: WNL - Mood Mood: Depressed, Anxious - Affect Affect: Constricted - Speech Speech: Appropriate - Formal Thought Process Formal Thought Process: No Impairment - Suicidal Ideation Suicidal Ideation: No - Homicidal Ideation Homicidal Ideation: No Goal/Treatment Plan - Goal/Treatment Plan Need for Continued Stay: Discharge may exacerbated symptoms, Severe functional impairment Progress Toward Problem(s) and Goals/Treatment Plan: Taper with methadone Gabapentin for augmentation As needed medications All risks, benefits and alternatives of the meds discussed, and the pt agreed and understood. Attend groups and activities Supportive therapy and psychoeducation [place] for abstinence CBT for relapse prevention Encourage MAT Refer to rehab or IOP, and self-help groups Teach healthy lifestyle methods, i.e. diet, exercise, meditation Smoking cessation with [place] Nicotine patch if needed
[2018-12-03 20:13] VITALS: BP 103/66; PULSE 86; RESP 19; TEMP 98.4
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
== END 2018-12-04 05:53 | disposition home or self-care (01) | DRG 744 ==
LOC: C.ER 08:46 → C.7D 12:39
PROVIDERS: ADMIT Psychiatry & Neurology Psychiatry; ATTEND Psychiatry & Neurology Psychiatry
PROC: HZ52ZZZ Individual Psychotherapy for Substance Abuse Treatment, Cognitive-Behavioral (ICD-10-PCS; principal; 2018-11-30)
PROC: HZ56ZZZ Individual Psychotherapy for Substance Abuse Treatment, Psychoeducation (ICD-10-PCS; 2018-11-30)
PROC: HZ2ZZZZ Detoxification Services for Substance Abuse Treatment (ICD-10-PCS; 2018-11-30)
DX: F11.23 Opioid dependence with withdrawal (principal); J44.9 Chronic obstructive pulmonary disease, unspecified; F14.90 Cocaine use, unspecified, uncomplicated; F31.9 Bipolar disorder, unspecified; E78.00 Pure hypercholesterolemia, unspecified; F43.10 Post-traumatic stress disorder, unspecified; K21.9 Gastro-esophageal reflux disease without esophagitis; D64.9 Anemia, unspecified; F60.9 Personality disorder, unspecified; G40.909 Epilepsy, unspecified, not intractable, without status epilepticus; I10 Essential (primary) hypertension; Z86.73 Personal history of transient ischemic attack (TIA), and cerebral infarction without residual deficits; Z59.0 Homelessness; Z87.891 Personal history of nicotine dependence

== ENCOUNTER 2019-01-26 10:25 | Inpatient (IN) | payer MEDICAID, OTHER ==
[2019-01-26 10:26] VITALS: BMI 31.4
--- NOTE | 2019-01-26 11:28 | C.PDOC ---
History Of Present Illness Patient is a 43 year old female, with a PMHx of epilepsy, COPD, and HTN, who presents to the ED c/o suicidal ideation and worsening depression. Patient reports that she started to cut her forearms 1 day ago, carving "MOM" into her left forearm but then proceeded to stop. Patient admits to previously attempting suicide by swallowing pills and reports abusing heroin and alcohol. She also states that she has been feeling itchy and thinks she may have scabies because a friend has had them recently. Denies rash. Time Seen by Provider: 01/26/19 10:35 Chief Complaint (Nursing): Psychiatric Evaluation History Per: Patient History/Exam Limitations: no limitations Onset/Duration Of Symptoms: Days Current Symptoms Are (Timing): Still Present Associated Symptoms: Depression, Suicidal Thoughts. denies: Suicidal Plan Involuntary Hold By: None Recent travel outside of the [place]: No Additional History Per: Patient Past Medical History Reviewed: Historical Data, Nursing Documentation, Vital Signs Vital Signs: Last Vital Signs Temp 98.7 F 01/26/19 10:29 Pulse 83 01/26/19 10:29 Resp 17 01/26/19 10:29 BP 111/72 01/26/19 10:29 Pulse Ox 97 01/26/19 10:29 Primary Care Provider: FAMILY PROVIDER,NO - Medical History PMH: Anemia, Anxiety, Asthma, Back Problems (SPINAL SURGERY IN 2005), Bipolar Disorder, Bronchitis, COPD, Depression, GERD, HTN, Hypercholesterolemia, Post Traumatic Stress Disorder, Seizures, TIA Denies: Diabetes, Hepatitis, HIV, Chronic Kidney Disease, Sexually Transmitte d Disease Surgical History: Back Surgery (lumbar surgery) - [facility] Procedures ALCOHOL DETOXIFICATION (12/13/14) BILAT ENDOS OCC TUBE NEC (12/20/97) C.A.T. SCAN OF HEAD (03/31/07) CLOSED ENDOSCOPIC BIOPSY OF LARGE INTESTINE (05/10/14) DETOXIFICATION SERVICES FOR SUBSTANCE ABUSE TREATMENT (11/30/18) DPT ADMINISTRATION (07/06/14) DRAINAGE OF RIGHT KNEE JOINT, PERCUTANEOUS APPROACH, DIAGN (12/08/15) DX ULTRASOUND-DIGESTIVE (04/10/15) ESOPHAGOGASTRODUODENOSCOPY [EGD] W/CLOSED BIOPSY (04/10/15) GROUP AUTOMATION APPLICATION ENGINEER FOR SUBSTANCE ABUSE TREATMENT, PSYCHOEDUCATION (03/07/18) GROUP PSYCHOTHERAPY (06/12/17) IMMOBILIZ/WOUND ATTN NEC (04/28/14) INCIS VULVA/PERINEUM NEC (04/28/14) INDIV AUTOMATION APPLICATION ENGINEER FOR SUBSTANCE ABUSE TREATMENT, PSYCHOEDUCATION (10/19/16) INDIV PSYCHOTHERAPY FOR SUBSTANCE ABUSE TREATMENT, SUPPORT (03/07/18) INDIV PSYCHOTHERAPY FOR SUBSTANCE ABUSE, COGNITIV BEHAVIORAL (11/30/18) INDIV PSYCHOTHERAPY FOR SUBSTANCE ABUSE, PSYCHOEDUCATION (11/30/18) INDIVID PSYCHOTHERAP NEC (08/07/14) INDIVIDUAL PSYCHOTHERAPY, COGNITIVE-BEHAVIORAL (10/19/16) INDIVIDUAL PSYCHOTHERAPY, SUPPORTIVE (06/12/17) INJECT/INFUSE ELECTROLYT (06/11/14) INJECT/INFUSE NEC (11/14/14) INSERT INDWELLING CATH (05/07/14) INTRODUCE OF OTH THERAP SUBST INTO RESP TRACT, VIA OPENING (03/19/17) MEDICATION MANAGEMENT (03/07/18) MEDS MGMT FOR SUBSTANCE ABUSE TREATMENT, OTH REPL MED (06/12/17) NEBULIZER THERAPY (12/13/14) OTHER GROUP THERAPY (08/07/14) PHARMACOTHERAPY FOR SUBSTANCE ABUSE, NICOTINE REPLACE (03/07/18) PHARMACOTHERAPY FOR SUBSTANCE ABUSE, OTH REPLACE MED (01/11/18) PSYCHIA INTERV/EVAL NEC (11/14/14) PSYCHIAT DRUG THERAP NEC (05/22/14) VENOUS PUNCTURE NEC (08/02/14) Family History: States: No Known Family Hx - Social History Hx Tobacco Use: Yes Hx Alcohol Use: Yes Hx Substance Use: Yes - Immunization History Hx Tetanus Toxoid Vaccination: No Hx Influenza Vaccination: No Hx Pneumococcal Vaccination: No Review Of Systems Except As Marked, All Systems Reviewed And Found Negative. Constitutional: Negative for: Fever, Chills Cardiovascular: Negative for: Chest Pain Respiratory: Negative for: Shortness of Breath Skin: Negative for: Rash Psych: Positive for: Depression, Suicidal ideation, Other (denies HI, hallucinations, or suicidal plan ) Physical Exam - Physical Exam Appears: Non-toxic, No Acute Distress Skin: Warm, Dry, No Rash, Other (superficial abrasions to left forearm ) Head: Atraumatic, Normacephalic Eye(s): bilateral: Normal Inspection, PERRL, EOMI Oral Mucosa: Moist Neck: Normal ROM, Supple Chest: Symmetrical, No Deformity Cardiovascular: Rhythm Regular, No Murmur Respiratory: Normal Breath Sounds, No Rales, No Rhonchi, No Wheezing Gastrointestinal/Abdominal: Soft, No Tenderness Extremity: Normal ROM, No Tenderness, No Swelling Neurological/Psych: Oriented x3, Normal Speech, Normal Motor, Normal Sensation Gait: Steady ED Course And Treatment - Laboratory Results Result Diagrams: 01/26/19 11:41 01/26/19 11:41 O2 Sat by Pulse Oximetry: 97 (on RA) Pulse Ox Interpretation: Normal Medical Decision Making Medical Decision Making: Plan: Labs UA The patient is medically cleared for psych admission. Disposition - Disposition Disposition: HOSPITALIZED Disposition Time: 13:03 Condition: STABLE Forms: [employer] (Ukrainian) - POA Present On Arrival: None - Clinical Impression Clinical Impression: Manic bipolar I disorder - PA / [employer]ER / Resident Statement MD/DO has reviewed & agrees with the documentation as recorded. - Scribe Statement The provider has reviewed the documentation as recorded by the Regla Stevens All medical record entries made by the Scribe were at my direction and personally dictated by me. I have reviewed the chart and agree that the record accurately reflects my personal performance of the history, physical exam, medical decision making, and the department course for this patient. I have also personally directed, reviewed, and agree with the discharge instructions and disposition.
[2019-01-26 11:53] LABS: BASO # 0.1 K/uL (0.0-0.2); BASO % 1.1 % (0.0-2.0); EOS # 0.1 K/uL (0.0-0.7); EOS % 0.9 % (0.0-4.0); HEMOGLOBIN 13.7 g/dL (11.0-16.0); LYMPH # 1.8 K/uL (1.0-4.3); LYMPH % 27.1 % (20.0-40.0); MEAN CELL VOLUME 92.2 fL (81.0-99.0); MEAN CORPUSCULAR HEMOGLOBIN 31.5 pg (27.0-31.0); MEAN CORPUSCULAR HGB CONC 34.2 g/dL (33.0-37.0); MEAN PLATELET VOLUME 9.4 fL (7.2-11.7); MONO # 0.4 K/uL (0.0-0.8); MONO % 5.5 % (0.0-10.0); NEUT # 4.4 K/uL (1.8-7.0); NEUT % 65.4 % (50.0-75.0); RBC 4.36 Mil/uL (3.80-5.20); RED CELL DISTRIBUTION WIDTH 14.5 % (11.5-14.5); WHITE BLOOD COUNT 6.7 K/uL (4.8-10.8)
[2019-01-26 11:58] LABS: HCG,QUALITATIVE URINE NEGATIVE (NEGATIVE)
[2019-01-26 12:00] LABS: SQUAMOUS EPITHIAL 1 /hpf (0-5); URINE BILIRUBIN NEGATIVE (NEGATIVE); URINE BLOOD NEGATIVE (NEGATIVE); URINE CLARITY Clear (Clear); URINE COLOR Yellow (YELLOW); URINE GLUCOSE (UA) NORMAL (Normal); URINE LEUKOCYTE ESTERASE NEG Leu/uL (Negative); URINE PROTEIN NEGATIVE (NEGATIVE); URINE UROBILINOGEN NORMAL mg/dL (0.2-1.0)
[2019-01-26 12:09] LABS: ALB/GLOB RATIO 1.9 (1.0-2.1); ALT/SGPT 21 U/L (9-52); AST/SGOT 29 U/L (14-36); BLOOD UREA NITROGEN 18 mg/dL (7-17); CALCIUM 9.8 mg/dl (8.6-10.4); GFR NON-AFRICAN AMERICAN > 60
[2019-01-26 12:24] LABS: BARBITURATES, UR NEGATIVE (NEGATIVE); BENZODIAZEPINES, UR NEGATIVE (NEGATIVE); PHENCYCLIDINE, UR NEGATIVE (NEGATIVE)
[2019-01-26 12:51] LABS: OPIATES, UR POSITIVE (NEGATIVE)
[2019-01-26] MEDS ORDERED: Permethrin 5% Cream(60 gm) TOP ONE (13:01)
--- NOTE | 2019-01-26 14:48 | PCM.BM ---
<Quyen Pulido - Last Filed: 01/26/19 14:47> Treatment Plan Problems - Problems identified on initial assessmt Anxiety Date Initiated: 01/26/19 Time Initiated: 14:48 Assessment reference: NA Status: Active Self Harm Date Initiated: 01/26/19 Time Initiated: 14:48 Assessment reference: NA Status: Active Treatment assets and liabiliti Patient Assests: adapts well, cooperative, insightful, self-reliant, ADL independent, negotiates basic needs, cognitively intact Patient Liabilities: live alone, financial problems, poor support system, relationship conflicts, substance abuse, legal issue - Milieu Protocol Maintain good personal hygiene: daily Encourage regular showers, daily Remind patient to perform daily oral care, daily Assist patient to perform ADL's Conduct patient checks and document Observation sheet: Q15 minutes Maintain personal safety: every shift Educate patient to report safety concerns to staff, every shift Monitor environment for contraband/sharps Medication safety: Monitor for expected outcome, potential side effects: every shift, Assess barriers to learning: every shift, Assess readiness for medication education: every shift <Emmy Molina - Last Filed: 01/27/19 15:16> Family Contact Family involvement: Patient does not wish Family/SO involvement Family contact: Patient declines to allow family contact at present - Goals for Treatment Patient goals for treatment: "I want to go to rehab." Discharge/Continuing Care - Education Needs Education Needs: Patient Medication, Patient Diagnosis/Disease Process, Patient Coping Skills, Patient Placement options, Patient Community resources - Discharge Discharge Criteria: Free of Suicidal thoughts, Normal sleep pattern, Ability to care for self, No longer exhibiting s/s of withdrawal, Reduction of target symptoms Discharge to:: Substance Abuse Rehab - Treatment Team Participation Discussed with Family/SO: No Was Patient/Family/SO present at Treatment Team Meeting: Yes
--- NOTE | 2019-01-27 09:37 | PCM.PSYCH ---
Initial Psychiatric Evaluation - Initial Psychiatric Evaluation Type of Admission: Voluntary Legal Status: Capacity Chief Complaint (in patient's own words): I was feeling depressed and suicidal. History of Present Illness and Precipitating Events: Patient is a 43 year old female, single, currently unemployed, who was brought in via ambulance to [facility] due to suicidal thoughts and self-injurious behavior. Patient reports long history of bipolar disorder. She reports history of few inpatient psychiatric hospitalizations. She was last discharged from [facility] 2 months ago. As per the patient soon after discharge she relapsed on drugs and started abusing increasing amount of heroin and cocaine. Yesterday she abused 3-5 bags of heroin along with some cocaine, became increasingly depressed and developed suicidal ideation with plan to slit veins. She got concerned and called EMS. Patient reports depressed mood, feelings of hopelessness and helplessness. She also reports poor sleep and poor appetite. Patient stated that she has attempted suicide in the past. The most recent episode was 9 years ago and the patient tried overdosing on pills and tried to hang herself as well. There were fresh visible cuts on patient's arm. One of the cuts spelled "mom" on her forearm. Patient stated that she drinks about a pint of vodka and "a couple of beers" once a week. Patient reported that she used cocaine 2 days ago and first started about 9 years ago. Patient reported that she smokes cocaine and uses about "20 dollars worth". Patient stated that she had 3 bags yesterday, but usually has around 10 bags. She reports withdrawal symptoms from heroin including nausea, cramps, joint pains, headaches, sweating and anxiety. She reports at times irritability, agitation and poor focus. However she denies any auditory hallucinations any paranoia. Past medical history History of epilepsy, HTN Current Medications: Active Medications Generic Name Dose Route Start Last Admin Trade Name Freq PRN Reason Stop Dose Admin Hydroxyzine HCl 50 mg 01/26/19 22:05 Atarax PO Q6 PRN Anxiety Pneumococcal Polyvalent Vaccine 0.5 ml 01/29/19 10:00 Pneumovax 23 Vaccine IM 01/29/19 10:01 .ONCE ONE Quetiapine Fumarate 50 mg 01/26/19 22:15 01/26/19 22:14 Seroquel PO 50 mg HS ERNST Administration Past Psychiatric History - Past Psychiatric History Previous Treatment History: Inpatient Pertinent Medical Hx (Current Medical&Sleep Prob, Allergies): Allergies Allergy/AdvReac Type Severity Reaction Status Date / Time PAT Inhibitors Allergy Intermediate RASH Verified 01/26/19 10:49 Clonazepam [Klonopin] 0.5 mg PO BID 12/07/17 amLODIPine [Norvasc] 5 mg PO DAILY 03/07/18 Albuterol Sulfate [Ventolin Hfa] 2 puff IH PRN PRN #1 hfa.aer.[email or web address] 03/13/18 Baclofen [Lioresal] 10 mg PO BID 10/23/18 levETIRAcetam [Keppra] 500 mg PO BID #28 tab 10/23/18 Review of Systems - Review of Systems All systems: reviewed and no additional remarkable complaints except - Psychiatric Psychiatric: Anxiety, Irritability, Mood Swings, Suicidal Ideation Mental Status Examination - Personal Presentation Personal Presentation: Looks stated age - Affect Affect: Broad - Motor Activity Motor Activity: Psychomotor Agitation - Reliability in Providing Information Reliability in Providing Information: Poor, due to altered mood - Speech Speech: Organized - Mood Mood: Depressed, Anxious - Formal Thought Process Formal Thought Process: Flight of ideas - Obsessions/Compulsions Obsessions: No Compulsions: No - Cognitive Functions Orientation: Person, Place, Situation, Time Sensorium: Alert Attention/Concentration: Attentive Abstract Thinking: [place] Estimate of Intelligence: Below average Judgement: Imparied, as evidence by: Poor judgement, Imparied, as evidence by: Lack of insight into illness - Risk Risk: Suicidal, Withdrawal, Diminished functioning - Limitations Limitations: Living alone DSM 5 DX - DSM 5 DSM 5 Diagnosis: Bipolar disorder depressed severe without psychotic features Opioid use disorder severe Opiate withdrawal Cocaine use disorder severe Alcohol use disorder severe - Recommended/Plan of Treatment Treatment Recommendations and Plan of Treatment: Bipolar disorder depressed severe without psychotic features Opioid use disorder severe Opiate withdrawal Cocaine use disorder severe Alcohol use disorder severe Epilepsy Hypertension CBT Psychoeducation and supportive therapy and group therapy Methadone taper for heroin withdrawal Withdrawal medication including clonidine/Imodium/ibuprofen/baclofen Librium as needed for alcohol withdrawal Seroquel for insomnia hydroxyzine for anxiety Keppra for seizures Neurontin for augmentation
[2019-01-27] MEDS ORDERED: Albuterol 0.083% Inhal Sol (2.5 mg/3 mL) UD INH PRN (09:43)
[2019-01-27] MEDS ORDERED: Aluminum Hydroxide/Magnesium Hydroxide Susp (30 mL) PO PRN (09:47)
[2019-01-27 10:47] VITALS: O2SAT 100
--- NOTE | 2019-01-28 17:26 | PCM.PYCHPN ---
Psychiatric Progress Note - Psychiatric Progress Note Patient seen today, length of contact: 15 MIN Patient Chief Complaint: I was feeling depressed. Problems Identified/Issues Discussed: Patient was seen and evaluated, chart reviewed and discussed the staff. Patient still reports irritability and agitation. She reports at times depressed mood and feelings of hopelessness and helplessness. She still reports withdrawal symptoms including nausea, cramps, joint pains, anxiety and headaches. She denies any auditory hallucinations. She is taking medication but denies any side effects Supportive therapy was given Medication Change: Yes Medical Record Reviewed: Yes Mental Status Examination - Cognitive Function Orientation: Person, Place, Situation, Time Memory: Intact Attention: WNL Concentration: Poor Association: WNL Fund of Knowledge: Poor - Mood Mood: Depressed, Anxious - Affect Affect: Broad - Speech Speech: Soft - Formal Thought Process Formal Thought Process: Flight of ideas - Suicidal Ideation Suicidal Ideation: No - Homicidal Ideation Homicidal Ideation: No Goal/Treatment Plan - Goal/Treatment Plan Need for Continued Stay: Remain at risks for inpatient hospitalization Progress Toward Problem(s) and Goals/Treatment Plan: Bipolar disorder depressed severe without psychotic features Opioid use disorder severe Opiate withdrawal Cocaine use disorder severe Alcohol use disorder severe Epilepsy Hypertension CBT Psychoeducation and supportive therapy and group therapy Methadone taper for heroin withdrawal Withdrawal medication including clonidine/Imodium/ibuprofen/baclofen Librium as needed for alcohol withdrawal Seroquel for insomnia hydroxyzine for anxiety Keppra for seizures Neurontin for augmentation
[2019-01-29 06:30] VITALS: BP 110/76; PULSE 64; RESP 18; TEMP 97.9
[2019-01-29] MEDS ORDERED: Pneumococcal 23-Valent Vaccine IM ONE (10:00)
--- NOTE | 2019-01-29 11:32 | PCM.PYCHDC ---
Mental Status Examination - Mental Status Examination Orientation: Person, Place, Situation Memory: Intact Mood: Anxious Affect: Broad Speech: Pressured Attention: WNL Concentration: WNL Association: WNL Fund of Knowledge: WNL Formal Thought Process: No Impairment Suicidal Ideation: No Current Homicidal Ideation?: No Discharge Summary - Discharge Note Consultations:: List each consultation separately and include: 1. Reason for request. 2. Findings. 3. Follow-up Summary of Hospital Course include:: 1. Description of specific treatment plan utilized for patients during their course of treatmen. 2. Summarize the time- course for resolution of acute symptoms and/or regressed behaviors. 3. Describe issues identified and worked on during hospitalization. 4. Describe medication utilized. 5. Describe medical problems identified and treated. 6. Reassessment of suicide risk Summary of Hospital Course: Patient is a 43 year old female, single, currently unemployed, who was brought in via ambulance to [facility] due to suicidal thoughts and self-injurious behavior. Patient reports long history of bipolar disorder. She reports history of few inpatient psychiatric hospitalizations. She was last discharged from [facility] 2 months ago. As per the patient soon after discharge she relapsed on drugs and started abusing increasing amount of heroin and cocaine. Yesterday she abused 3-5 bags of heroin along with some cocaine, became increasingly depressed and developed suicidal ideation with plan to slit veins. She got concerned and called EMS. Patient reports depressed mood, feelings of hopelessness and helplessness. She also reports poor sleep and poor appetite. Patient stated that she has attempted suicide in the past. The most recent episode was 9 years ago and the patient tried overdosing on pills and tried to hang herself as well. There were fresh visible cuts on patient's arm. One of the cuts spelled "mom" on her forearm. Patient stated that she drinks about a pint of vodka and "a couple of beers" once a week. Patient reported that she used cocaine 2 days ago and first started about 9 years ago. Patient reported that she smokes cocaine and uses about "20 dollars worth". Patient stated that she had 3 bags yesterday, but usually has around 10 bags. She reports withdrawal symptoms from heroin including nausea, cramps, joint pains, headaches, sweating and anxiety. She reports at times irritability, agitation and poor focus. However she denies any auditory hallucinations any paranoia. Past medical history History of epilepsy, HTN - Final Diagnosis (DSM 5) Condition upon Discharge: STABLE Disposition: AGAINST MEDICAL ADVICE Follow-up Treatment Plan: Bipolar disorder depressed severe without psychotic features Opioid use disorder severe Opiate withdrawal Cocaine use disorder severe Alcohol use disorder severe Epilepsy Hypertension CBT Psychoeducation and supportive therapy and group therapy Methadone taper for heroin withdrawal Withdrawal medication including clonidine/Imodium/ibuprofen/baclofen Librium as needed for alcohol withdrawal Seroquel for insomnia hydroxyzine for anxiety Keppra for seizures Neurontin for augmentation
== END 2019-01-29 12:49 | disposition left against medical advice (07) | DRG 430 ==
LOC: C.ER 10:25 → C.5E 13:24
PROVIDERS: ADMIT Psychiatry & Neurology Psychiatry; ATTEND Psychiatry & Neurology Psychiatry
PROC: GZHZZZZ Group Psychotherapy (ICD-10-PCS; principal; 2019-01-26)
PROC: GZ56ZZZ Individual Psychotherapy, Supportive (ICD-10-PCS; 2019-01-26)
DX: F31.4 Bipolar disorder, current episode depressed, severe, without psychotic features (principal); F11.23 Opioid dependence with withdrawal; F14.10 Cocaine abuse, uncomplicated; J44.9 Chronic obstructive pulmonary disease, unspecified; G40.909 Epilepsy, unspecified, not intractable, without status epilepticus; G47.00 Insomnia, unspecified; I10 Essential (primary) hypertension; Z87.891 Personal history of nicotine dependence; Z86.73 Personal history of transient ischemic attack (TIA), and cerebral infarction without residual deficits; R45.851 Suicidal ideations; F43.10 Post-traumatic stress disorder, unspecified; F10.10 Alcohol abuse, uncomplicated; Y90.0 Blood alcohol level of less than 20 mg/100 ml